=== PATIENT | female | born 1995 | race Caucasian/White ===

== ENCOUNTER 2020-06-02 22:29 | Emergency (ER) | payer OTHER, SELFPAY ==
[2020-06-02 22:30] VITALS: BP 127/74; PULSE 120; RESP 16; TEMP 36.9; O2SAT 98; BMI 38.7
--- NOTE | 2020-06-03 01:11 | ED_ITS ---
HPI - Abdominal Pain General Chief Complaint: Abdominal Pain Stated Complaint: Abd pain Time Seen by Provider: 06/02/20 22:43 Source: patient Mode of arrival: ambulatory History of Present Illness HPI narrative: This is a 24-year-old female with past medical history hypertension who presents with right upper quadrant pain radiating into the infra scapular area that has been intermittent since Thursday, but she states that has worsened with noted fevers with a T-max of 102? as well as nausea and a few episodes of diarrhea and then started today. Otherwise, she denies any surgical history. In addition, she denies any urinary pain/burning/frequency. Related Data Previous Rx's Medication Instructions Recorded ciprofloxacin HCl [Cipro] 500 mg PO Q12H 7 Days #14 tab 06/03/20 metronidazole [Flagyl] 500 mg PO Q8H 7 Days #21 tab 06/03/20 Allergies Allergy/AdvReac Type Severity Reaction Status Date / Time shellfish derived Allergy Severe ANGIOEDEMA Verified 06/02/20 22:39 [SHELLFISH DERIVED] Review of Systems Review of Systems Pertinent positives and negatives as stated in HPI 10 point review of systems is otherwise negative. Physical Exam Vital Signs: Vital Signs: Last Vital Signs Temp 99.8 F 06/03/20 06:00 Pulse 91 06/03/20 06:00 Resp 16 06/03/20 06:00 BP 130/69 06/03/20 06:00 Pulse Ox 98 06/03/20 06:00 Body Mass Index 38.7 VITAL SIGNS: Reviewed. GENERAL: Well developed, well nourished, in no acute distress. NOSE: Nares patent bilateral OROPHARYNX: no oral lesions noted, posterior pharynx clear NECK: Supple, no adenopathy LUNGS: Normal breath sounds. No adventitious sounds or accessory muscle use. SpO2<98> CARDIOVASCULAR: Regular rate and rhythm without noted murmurs, no JVD or lower extremity edema. ABDOMEN: Soft, right upper quadrant tenderness on palpation without rebound, non-distended with bowel sounds. MUSCULOSKELETAL: No tenderness, deformities, or effusions noted on gross inspection. EXTREMITIES: No cyanosis, clubbing or edema. SKIN: Inspection of the skin reveals no rashes NEUROLOGIC: Alert and oriented x 4. Course Course Course Narrative: This is a 24-year-old female with history and clinical presentation suspicious for cholecystitis, pyelonephritis but less likely renal colic or appendicitis. All investigations reviewed and there are no acute findings under than a mild hypokalemia which was repleted with oral replacement. In addition, ultrasound was negative for evidence of cholecystitis and a CT scan was pursued which demonstrated acute terminal ileitis and intramural fatty infiltration within the cecum and ascending colon which is pointed out to favor Crohn's disease although infectious is also a possibility. There are no identified abscesses, stranding or evidence of systemic infection on lab work. I discussed this case with gastroenterology who has provided in outpatient appointment for follow-up and has the following recommendations: Cipro/Flagyl x7 days, call the office on Thursday, 06/05 MDM - Abdominal Pain Lab Data Result diagrams: 06/03/20 02:01 06/03/20 02:01 Labs: Lab Results 06/03/20 06/03/20 06/03/20 Range/Units 01:42 02:01 02:01 WBC 6.6 (4.8-10.8) X10*3/uL RBC 4.51 (4.20-5.50) X10*6/uL Hgb 13.2 (12.0-16.0) g/dl Hct 40.3 (37-47) % MCV 89.4 (80-98) fL MCH 29.3 (27.0-33.0) pg MCHC 32.8 (31.0-35.0) g/dl RDW 13.0 (11.0-16.0) % Plt Count 266 (160-400) X10*3/uL MPV 8.9 L (9.4-12.3) fL Immature Gran % (Auto) 0.5 H (0.0-0.4) % Neut % (Auto) 86.5 H (45-73) % Lymph % (Auto) 6.9 L (20-40) % [place] % (Auto) 5.9 (2-11) % Eos % (Auto) 0.0 (0-4) % Baso % (Auto) 0.2 (0-2) % Lymph # (Auto) 0.5 L (1.2-4.9) X10*3/uL [place] # (Auto) 0.4 (0.1-1.2) X10*3/uL Eos # (Auto) 0.0 (0.0-0.4) X10*3/uL Baso # (Auto) 0.0 (0.0-0.2) X10*3/uL Abs Immat Gran (auto) 0.03 (0.00-0.03) X10*3/uL Absolute Neuts (auto) 5.7 (2.0-8.3) X10*3/uL Absolute Nucleated RBC 0.000 (0.0-0.012) X10*3/uL Nucleated RBC % (auto) 0.0 (0.0-0.2) /100WBC Smear Tech's Comments VERIFIED Sodium 134 L (135-145) mmol/L Potassium 3.2 L (3.3-5.1) mmol/l Chloride 98 (96-108) mmol/L Carbon Dioxide 23 (22-29) mmol/L Anion Gap 16 (12-20) BUN 13 (9-16) mg/dL Creatinine 1.08 (0.5-1.4) mg/dL Estim Creat Clear Calc 86.9 Estimated GFR > 60 Random Glucose 109 (60-115) mg/dL Calcium 8.5 (8.4-10.2) mg/dL Total Bilirubin 0.5 (0.0-1.0) mg/dL AST 90 H (5-31) U/L ALT 81 H (0-31) U/L Alkaline Phosphatase 109 (39-117) U/L Total Protein 7.7 (6.5-8.0) g/dL Albumin 4.0 (3.5-5.0) g/dL Lipase 20 (8-78) U/L Urine Color YELLOW Urine Appearance CLEAR Urine pH 6.0 (5.0-8.0) Ur Specific [place] 1.020 (1.005-1.025) Urine Protein TRACE (NEG-TRACE) MG/DL Urine Glucose (UA) NEG (NEG) MG/DL Urine Ketones 15 (NEG) MG/DL Urine Blood NEG (NEG) Urine Nitrite NEG (NEG) Ur Leukocyte Esterase NEG (NEG) Urine Test NEGATIVE (NEGATIVE) Discharge Plan Discharge Clinical Impression: Hypokalemia Terminal ileitis Qualifiers: Digestive disease complication type: without complication Qualified Code(s): K50.00 - Crohn's disease of small intestine without complications Patient Disposition: Home, Self-Care Additional Instructions: 1. Resume all home medications as prescribed. 2. Increase fluid hydration especially with water. 3. Continue to treat temperatures greater than 100.4 with [id number] Tylenol and ibuprofen as directed on the outside packaging. 4. You have been provided with a follow-up appointment with gastroenterology for re-evaluation and outpatient management of your symptoms in combination with CT findings. You should call the office on Monday 06/05. Please do not hesitate to return to the emergency department should you experience any acute worsening or new symptoms. Prescriptions: New metronidazole [Flagyl] 500 mg tablet 500 mg PO Q8H 7 Days Qty: 21 RF: 0 ciprofloxacin HCl [Cipro] 500 mg tablet 500 mg PO Q12H 7 Days Qty: 14 RF: 0 Referrals: Christiano Park MD [Primary Care Provider] - 2 days (Re-evaluation and outpatient management for terminal ileitis. Patient was provided with a referral for Gastroenterology as this was read for possible Crohn's.) Torres Tomlinson [Physician] - 06/05/20 8:00 am (Please evaluate this patient for findings of terminal ileitis with noted intramural fatty infiltration within the cecum and ascending colon raising concern for possible Crohn's disease.) [facility] Past Medical History Source: nursing notes reviewed Medical History (Updated 06/03/20 @ 05:10 by Lashae Haley MD) Hypertension Social History Social History Alcohol intake: never Smoked in Last 30 Days: No Use of substances other than those prescribed or required for medical reasons: No Advance Directives: No
--- NOTE | 2020-06-03 01:33 | US_ITS ---
EXAMINATION: US ABDOMEN LIMITED CLINICAL INFORMATION: RUQ Pain. COMPARISON: None TECHNIQUE: Real-time imaging of the right upper quadrant abdominal viscera. FINDINGS: PANCREAS: Normal. LIVER: Diffuse increased echogenicity of hepatic parenchyma is most consistent with steatosis. A non mass-like region of decreased echogenicity is most consistent with focal fatty sparing. No suspicious lesions are identified. No intrahepatic biliary duct dilatation seen. The liver is normal in size. GALLBLADDER: Normal. The gallbladder is physiologically distended without evidence of stones, sludge, polyps, wall thickening or pericholecystic fluid. COMMON BILE DUCT: Normal in caliber measuring 0.37 cm in diameter. RIGHT KIDNEY: Normal. No hydronephrosis. No renal calculi or focal parenchymal lesions. The kidney measures 12.1 cm in maximum dimension. FREE FLUID: None. US/US abdomen limited IMPRESSION: Hepatic steatosis with areas of focal fatty sparing. No acute findings in the right upper quadrant.
[2020-06-03 02:04] LABS: Glucose Urine UA NEG (NEG); Leukocyte Esterase Urine NEG (NEG); Nitrite Urine NEG (NEG); Urine Blood NEG (NEG); Urine Ketones 15 MG/DL (NEG); Urine Protein TRACE MG/DL (NEG-TRACE)
[2020-06-03 02:07] LABS: Appearance Urine CLEAR; Color Urine YELLOW
[2020-06-03 02:08] LABS: Basophils Percent Auto 0.2 % (0-2); Hematocrit 40.3 % (37-47); Hemoglobin 13.2 g/dl (12.0-16.0); Imm Gran Abs Auto 0.03 X10*3/uL (0.00-0.03); Imm Gran Pct Auto 0.5 % (0.0-0.4); Lymphocytes Absolute Auto 0.5 X10*3/uL (1.2-4.9); Lymphocytes Percent Auto 6.9 % (20-40); MANUAL DIFF FLAG SCAN; Mean Corpuscular HGB Conc 32.8 g/dl (31.0-35.0); Mean Corpuscular Hemoglobin 29.3 pg (27.0-33.0); Mean Corpuscular Volume 89.4 fL (80-98); Mean Platelet Volume 8.9 fL (9.4-12.3); Monocytes Absolute Auto 0.4 X10*3/uL (0.1-1.2); Monocytes Percent Auto 5.9 % (2-11); Neutrophils Absolute Auto 5.7 X10*3/uL (2.0-8.3); Neutrophils Percent Auto 86.5 % (45-73); Platelet Count 266 X10*3/uL (160-400); Red Blood Count 4.51 X10*6/uL (4.20-5.50); SCAN SMEAR FLAG 1; White Blood Count 6.6 X10*3/uL (4.8-10.8)
[2020-06-03 02:51] LABS: UPreg QC Valid YES; Urine Pregnancy NEGATIVE (NEGATIVE)
[2020-06-03 02:53] LABS: Alanine Aminotransferase 81 U/L (0-31); Alkaline Phosphatase 109 U/L (39-117); Anion Gap 16 (12-20); Aspartate Amino Transferase 90 U/L (5-31); Bilirubin Total 0.5 mg/dL (0.0-1.0); Blood Urea Nitrogen 13 mg/dL (9-16); Calcium 8.5 mg/dL (8.4-10.2); Carbon Dioxide 23 mmol/L (22-29); Chloride 98 mmol/L (96-108); Creatinine Clr Calc Pharmacy 86.9; Estimated Glomerular Filt Rate > 60; Glucose Random 109 mg/dL (60-115); Lipase 20 U/L (8-78); Potassium 3.2 mmol/l (3.3-5.1); Sodium 134 mmol/L (135-145); Total Protein 7.7 g/dL (6.5-8.0)
[2020-06-03 02:59] LABS: SLIDE REVIEW VERIFIED
[2020-06-03 03:20] VITALS: TEMP 39
--- NOTE | 2020-06-03 03:24 | CT_ITS ---
EXAMINATION: CT ABDOMEN AND PELVIS WITH CONTRAST CLINICAL INFORMATION: Quadrant pain. Question pyelonephritis/renal colic. COMPARISON: Ultrasound from the same date at 1:33 AM TECHNIQUE: Multidetector volumetric images were obtained from the superior aspect of the liver through the pubic symphysis following administration 85 mL of Omnipaque 350 intravenous contrast. Sagittal and coronal reformatted images were obtained on the technologist's workstation. Oral contrast: No This CT examination was performed using dose optimization techniques as appropriate, variously including the following: *Automated exposure control *Adjustment of mA and/or kV according to patient size (this includes techniques or standardized protocols for targeted exams where dose is matched to indication/reason for exam; i.e. extremities or head) *Use of iterative reconstruction technique DLP: 689 mGy-cm FINDINGS: LUNG BASES: The visualized lung bases are unremarkable. LIVER, GALLBLADDER, AND BILIARY TREE: Relative hypoattenuation of the hepatic parenchyma is consistent with steatosis. Focal fatty sparing is seen in the posterior aspect of segments 2 and 3. No focal lesions are identified. No biliary ductal dilatation. Liver is normal in size. The gallbladder is unremarkable with no evidence of radiopaque gallstones, gallbladder wall thickening, or obvious pericholecystic inflammatory changes. PANCREAS: Unremarkable. SPLEEN: Unremarkable. ADRENAL GLANDS: Unremarkable. KIDNEYS AND URETERS: The presence of excreted intravenous contrast material within the renal collecting systems slightly limits sensitivity for small calculi. No calculi are suspected, however. There is a multilocular cyst in the left lower pole measuring 3 cm in diameter. No suspicious features. The kidneys are normal in size, shape, and attenuation. No hydronephrosis, hydroureter, or calculi seen. No perinephric stranding. BLADDER: Unremarkable. GASTROINTESTINAL TRACT: The distal 30 to 40 cm of the ileum demonstrates wall thickening with mucosal mural stratification and hyperemia as well as mesenteric edema and fat stranding, consistent with active inflammation. Intramural fat deposition is evident within the cecum and ascending colon without acute inflammatory changes. Appendix is normal. The colon is otherwise normal in appearance. No additional areas of bowel inflammation are identified. No intraperitoneal free air or free fluid. ABDOMINAL WALL: No significant hernia is appreciated. LYMPH NODES: Normal. VASCULAR: Unremarkable. PELVIC VISCERA: IUD is present within the uterus. Uterus otherwise normal in appearance. There is a 2.7 cm left OSSEOUS STRUCTURES: No significant findings of sacroiliitis. No acute osseous abnormalities. No obvious findings of ankylosing spondylitis or enthesitis at the lumbar spine. CT/CT abdomen pelvis w con IMPRESSION: 1. Acute terminal ileitis. No active inflammation is identified in the colon, though there is intramural fatty infiltration within the cecum and ascending colon as can be seen with chronic inflammation (though this is not specific). These findings would favor Crohn's disease, though infectious terminal ileitis or inflammation processes are also possible. 2. No evidence of pyelonephritis.
[2020-06-03] MEDS: Acetaminophen 325 MG TABLET 975 MG PO (03:41)
[2020-06-03] MEDS: iohexoL 350 MG/ML 100 ML INFUS..BTL 85 ML IV (04:41)
[2020-06-03] MEDS: 0.9 % Sodium Chloride 1,000 ML 999 ML IV (05:13)
[2020-06-03] MEDS: Potassium Chloride ER 20 MEQ TAB.ER.PRT 40 MEQ PO (05:13)
[2020-06-03 06:00] VITALS: BP 130/69; PULSE 91; RESP 16; TEMP 37.7; O2SAT 98
[2020-06-03] MEDS: levoFLOXacin 500 MG TABLET PO (06:37)
[2020-06-03] MEDS: metroNIDAZOLE 500 MG TABLET PO (06:37)
== END 2020-06-03 06:52 | disposition home or self-care (01) ==
PROVIDERS: Emergency Provider Student in an Organized Health Care Education/Training Program; PCP Student in an Organized Health Care Education/Training Program
DX: K50.00 Crohn's disease of small intestine without complications (principal); E87.6 Hypokalemia; R10.11 Right upper quadrant pain; R50.9 Fever, unspecified; Z79.899 Other long term (current) drug therapy
CPT/HCPCS: 36415; 74177; 76705; 80053; 81003; 81025; 83690; 85025; 96360; 99284; Q9967

== ENCOUNTER 2020-06-07 14:26 | Outpatient (REF) | payer OTHER, SELFPAY ==
[2020-06-07 15:20] LABS: MANUAL DIFF FLAG NO
[2020-06-07 15:23] LABS: Basophils Percent Auto 0.3 % (0-2); Eosinophils Absolute Auto 0.1 X10*3/uL (0.0-0.4); Eosinophils Percent Auto 0.7 % (0-4); Hematocrit 37.7 % (37-47); Hemoglobin 12.4 g/dl (12.0-16.0); Imm Gran Abs Auto 0.04 X10*3/uL (0.00-0.03); Imm Gran Pct Auto 0.4 % (0.0-0.4); Lymphocytes Absolute Auto 1.8 X10*3/uL (1.2-4.9); Lymphocytes Percent Auto 19.1 % (20-40); Mean Corpuscular HGB Conc 32.9 g/dl (31.0-35.0); Mean Corpuscular Volume 88.3 fL (80-98); Mean Platelet Volume 9.6 fL (9.4-12.3); Monocytes Absolute Auto 1.1 X10*3/uL (0.1-1.2); Monocytes Percent Auto 11.7 % (2-11); Neutrophils Absolute Auto 6.5 X10*3/uL (2.0-8.3); Neutrophils Percent Auto 67.8 % (45-73); Platelet Count 421 X10*3/uL (160-400); Red Blood Count 4.27 X10*6/uL (4.20-5.50); Red Cell Distribution Width 13.2 % (11.0-16.0); White Blood Count 9.6 X10*3/uL (4.8-10.8)
[2020-06-07 15:49] LABS: Alanine Aminotransferase 141 U/L (0-31); Albumin Level 3.9 g/dL (3.5-5.0); Alkaline Phosphatase 181 U/L (39-117); Aspartate Amino Transferase 101 U/L (5-31); Bilirubin Direct 0.2 mg/dL (0.0-0.5); Bilirubin Total 0.2 mg/dL (0.0-1.0); C Reactive Protein 8.36 mg/dL (< or = 0.50); Iron 26 mcg/dL (30-160); Percent Iron Saturation 8 % (15-50); Total Iron Binding Capacity 339 mcg/dL (228-428); Total Protein 7.4 g/dL (6.5-8.0); Unsaturated Iron Binding 313 ug/dL
[2020-06-07 16:05] LABS: Ferritin 169 ng/mL (10-122)
[2020-06-07 16:33] LABS: Erythrocyte Sedimentation Rate 63 MM/HR (0-20)
[2020-06-08 08:33] LABS: Hepatitis B Core Antibody Nonreactive (Nonreactive); Hepatitis B Surface Antigen Negative (Negative); ~Hepatitis B Surface Antibody NONREACTIVE (Nonreactive); ~Hepatitis C Antibody Nonreactive (Nonreactive)
[2020-06-08 14:12] LABS: Ceruloplasmin 45 mg/dL (18-53)
[2020-06-09 20:52] LABS: Anti Nuclear Antibody Screen NEGATIVE (NEGATIVE)
[2020-06-10 03:52] LABS: HBc Num1 0.14 S/CO (0.00-0.79); HBsAGNum1 0.22 S/CO (0.00-0.99); ~HepC Num1 0.11 S/CO (0.00-0.79)
[2020-06-10 04:13] LABS: Hepatitis A Antibody IgM 0.17 Index (0-0.79); ~Hepatitis A Antibody IgM Nonreactive (Nonreactive)
[2020-06-11 15:13] LABS: Mitochondrial Antibodies NEGATIVE (NEGATIVE)
[2020-06-12 13:07] LABS: Smooth Muscle Antibody <20 U (<20)
== END 2020-06-07 14:27 | disposition home or self-care (01) ==
LOC: HO.LAB 14:26
PROVIDERS: PCP Student in an Organized Health Care Education/Training Program; Visit Provider Internal Medicine
DX: R94.5 Abnormal results of liver function studies (principal); R93.3 Abnormal findings on diagnostic imaging of other parts of digestive tract; R19.7 Diarrhea, unspecified; K52.9 Noninfective gastroenteritis and colitis, unspecified
CPT/HCPCS: 36415; 80076; 82390; 82728; 83540; 85025; 85652; 86038; 86039; 86140; 86255; 86256; 86704; 86706; 86709; 86803; 87340

== ENCOUNTER 2020-06-11 12:18 | Day surgery (SDC) | payer OTHER, SELFPAY ==
--- NOTE | 2020-06-08 13:24 | P.CONAN_ITS ---
Documented by User: Sonja Hightower 06/08/20 13:27 HPI - Anesthesia Eval Consult details Narrative: 24yo F for Upper Endoscopy and Colonoscopy ED 06/07/20 with abd pain. Acute terminal ileus via CT. ? Crohns. [facility] Past Medical History Medical History Hypertension Social History Social History Alcohol intake: never Advance Directives: No Advance Directives Information Provided: No Meds Allergies Allergy/AdvReac Type Severity Reaction Status Date / Time shellfish derived Allergy Severe ANGIOEDEMA Verified 06/02/20 22:39 [SHELLFISH DERIVED] Exam Exam Date and Time: June 08, 2020 1324 Pertinent Lab Results Pertinent Lab Results: Laboratory Tests 06/03/20 06/07/20 02:01 14:52 WBC 9.6 Hgb 12.4 Hct 37.7 Plt Count 421 H D Sodium 134 L Potassium 3.2 L Chloride 98 Carbon Dioxide 23 BUN 13 Creatinine 1.08 Narrative Narrative: 06/03/20 CT abdomen pelvis w con IMPRESSION: 1. Acute terminal ileitis. No active inflammation is identified in the colon, though there is intramural fatty infiltration within the cecum and ascending colon as can be seen with chronic inflammation (though this is not specific). These findings would favor Crohn's disease, though infectious terminal ileitis or inflammation processes are also possible. 2. No evidence of pyelonephritis. Assessment and Plan Assessment Anesthesia Assessment: Chart Reviewed Documented by User: Jesus Howard 06/11/20 12:43 [facility] Past Medical History Medical History Hypertension Social History Social History Alcohol intake: never Advance Directives: No Advance Directives Information Provided: No Meds Allergies Allergy/AdvReac Type Severity Reaction Status Date / Time shellfish derived Allergy Severe ANGIOEDEMA Verified 06/02/20 22:39 [SHELLFISH DERIVED] Exam Airway Mallampati Class: II TM Dist: >3cm Neck ROM: Full
[2020-06-11 12:45] VITALS: BP 127/83; PULSE 126; RESP 16; TEMP 36.8; O2SAT 96; BMI 36.8
[2020-06-11 12:50] LABS: UPreg QC Valid YES; Urine Pregnancy NEGATIVE (NEGATIVE)
[2020-06-11] MEDS: Lactated Ringers 1,000 ML 100 ML IVCONT (12:56)
[2020-06-11 14:31] VITALS: BP 92/57; PULSE 88; RESP 12; TEMP 36.6; O2SAT 99
--- NOTE | 2020-06-11 14:37 | PM.OP ---
Brief Operative Note Date of Service: 06/11/20 Pre-op diagnosis: GERD, Diarrhea, Abnormal CT of GI tract Post-op diagnosis: other (Ileitis, Hiatal hernia, GERD) Procedure: EGD with biopsies, Colonoscopy to cecum and TI with biopsies Surgeon: Torres Tomlinson Anesthesia: MAC Estimated blood loss (mL): 3.0 Pathology: other (A. Descending duodenum B. Gastric antrum C. EG Junction at 34cm D. Terminal ileum E. Ascending colon F. Descending colon) Condition: stable Disposition: other
[2020-06-11 14:46] VITALS: BP 108/69; PULSE 90; RESP 17; TEMP 36.6; O2SAT 100
--- NOTE | 2020-06-11 15:09 | HO.POSTANES ---
Post Anesthesia Evaluation Post Anesthesia Evaluation Vital Signs: Vital Signs Temp Pulse Resp BP Pulse Ox 06/11/20 14:46 97.9 F 90 17 108/69 100 06/11/20 14:31 97.9 F 88 12 92/57 L 99 06/11/20 12:45 98.2 F 126 H 16 127/83 96 Anesthesia: Monitored Mental Status: Awake Pain Control: Satisfactory Nausea/Vomiting: None Hydration: Adequate Anesthesia-Related Issues: No Anes. Related Issues
--- NOTE | 2020-06-11 15:16 | OP_ITS ---
SURGEON: Torres Tomlinson MD PREOPERATIVE DIAGNOSIS: Gastroesophageal reflux, abdominal pain, diarrhea, and abnormal x-ray of GI tract. POSTOPERATIVE DIAGNOSIS: Gastroesophageal reflux, abdominal pain, diarrhea, and abnormal x-ray of GI tract, hiatal hernia, rule out Pool's esophagus, rule out celiac disease, ileitis, rule out colitis. PROCEDURE PERFORMED: Esophagogastroduodenoscopy with biopsies, and colonoscopy to cecum and terminal ileum with biopsies. Full consent has been obtained from her for this, including risks of bleeding and perforation. ESTIMATED BLOOD LOSS: COMPLICATIONS: ANESTHESIA: Monitored anesthesia care. ASSISTANTS: SPECIMENS: DESCRIPTION OF PROCEDURE: The patient was placed in the left lateral decubitus position. The Olympus video gastroscope was passed in the posterior oropharynx and upper esophagus under direct vision. The scope was passed slowly to the distal esophagus. The gastroesophageal junction appeared at 34 cm. There was some slight irregularity consistent with reflux, but no evidence of esophagitis nor any definitive Pool's mucosa. There was a small to moderate-sized hiatal hernia. The scope was advanced to pylorus and duodenum was cannulated to the descending portion. The duodenum including the bulb appeared normal without mass or ulceration. Biopsies were obtained from the second and third portions of duodenum. The scope was withdrawn back from the stomach. The gastric antrum and body appeared normal with good peristalsis. The scope was retroflexed visualizing the proximal stomach carefully, which appeared normal, without any sign of mass or ulceration. The scope was straightened. Biopsies were obtained from the gastric antrum. Scope was withdrawn back to the esophagus. Biopsies were obtained at the EG junction at 34 cm. Proximal to this, the esophageal mucosa appeared normal. The scope was withdrawn from the patient. She was turned around for the colonoscopy. The digital rectal exam revealed no abnormalities. The Olympus video pediatric colonoscope was entered into the rectum and advanced easily to the cecum. Once in the cecum, I did identify normal-appearing cecal pouch with appendiceal orifice. The ileocecal valve did have some edema and the small bowel mucosa did appear somewhat inflamed. I was able to cannulate the terminal ileum for several centimeters visualizing a great deal of edema, friability, and some small less than 5 mm ulceration. I was unable to go past the distal most portion of the ileum despite abdominal wall pressure. I could not visualize the ileum proximal to this area to see whether or not it was also abnormal. I did obtain multiple biopsies from the distal most portion of the ileum. The scope was withdrawn into the cecum. The scope was then slowly withdrawn assessing all mucosal surfaces carefully. Preparation was excellent. I did not visualize any sign of polyps, colitis, nor angiodysplasia. I did obtain biopsies in the ascending and descending colon. In the rectum, scope was retroflexed visualizing some internal hemorrhoids, but no other pathology. The rectal mucosa appeared normal. The scope was straightened and withdrawn from the patient. She tolerated procedure well and was returned to recovery area in stable condition. IMPRESSION: 1. Ileitis. 2. Rule out colitis. 3. Small internal hemorrhoids. 4. Hiatal hernia, gastroesophageal reflux. 5. Rule out celiac disease. PLAN: The results of the biopsy will be checked. She was advised to continue her omeprazole for symptomatic relief of reflux. I do suspect, in reviewing her history, that she may very well have had an acute enteritis causing the findings on her CAT scan and today's colonoscopy. I did advise her to finish her course of Cipro and Flagyl. 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 I shall send her home with a prescription to use dicyclomine on a p.r.n. basis for any abdominal cramping. I will hold off on treating anything such as Crohn's disease for the time being and then see her back within 2 weeks in the office. Depending upon the results of her biopsies and clinical course we could always institute specific medication for Crohn disease if it appears that is the case, but again given the acute onset of her symptoms, this may well have been some type of bacterial enteritis. In regard to her elevated LFTs, a workup for that has been negative and it appears to be consistent with fatty liver, but we shall review that as well when I see here in 2 to 3 weeks. This has been reviewed with her today. MD ENRRIQUE Bhat/TONIE / [id number]
== END 2020-06-11 15:13 | disposition home or self-care (01) ==
PROVIDERS: Nurse Practitioner; PCP Student in an Organized Health Care Education/Training Program; Visit Provider Internal Medicine
PROC: (CPT 45380; principal; 2020-06-11 13:40)
DX: K52.9 Noninfective gastroenteritis and colitis, unspecified (principal); R93.3 Abnormal findings on diagnostic imaging of other parts of digestive tract; K64.8 Other hemorrhoids; K21.9 Gastro-esophageal reflux disease without esophagitis; K29.80 Duodenitis without bleeding; K44.9 Diaphragmatic hernia without obstruction or gangrene; I10 Essential (primary) hypertension; Z79.899 Other long term (current) drug therapy; Z87.891 Personal history of nicotine dependence
CPT/HCPCS: 45380; 43239; 81025; 88305; 88342; J2250

== ENCOUNTER 2020-07-04 08:32 | Outpatient (REF) | payer OTHER, SELFPAY ==
--- NOTE | ~2020-07-04 | FL_ITS ---
EXAMINATION: FL SMALL BOWEL SERIES CLINICAL INFORMATION: Ileitis, diarrhea, abnormal CT scan. COMPARISON: CT scan of June 03, 2020 TECHNIQUE: Following a plating department helper image of the abdomen, contrast was administered orally, and interval abdominal radiographs were performed to assess for contrast progression through the small bowel. Following contrast transit through the small bowel and into the colon, the patient was placed on the fluoroscopy table, and multiple spot images were obtained. FINDINGS: [employer] Architect image of the abdomen demonstrates a normal bowel gas pattern. IUD in place. There is slight delay in transit time through the small bowel, with contrast present in the colon by 160 minutes. Small bowel loops are of normal caliber throughout the abdomen and pelvis. The jejunal fold patterns are normal, without evidence of abnormal thickening. Most of the ileum has a normal fold pattern. The terminal ileum appears somewhat featureless and was not noted to distend for approximately 5 minutes under fluoroscopy. FLUOROSCOPY TIME: 0.6 minutes DOSE AREA PRODUCT: 5.882 Gy centimeter squared FL/FL small bowel follow through IMPRESSION: 1. Mild delay in small bowel transit. 2. Somewhat featureless terminal ileum. This has the appearance of terminal ileitis with Crohn's included within the differential diagnosis.
== END 2020-07-04 08:33 | disposition home or self-care (01) ==
LOC: HO.XRAY 08:32
PROVIDERS: Visit Provider Internal Medicine
DX: K52.9 Noninfective gastroenteritis and colitis, unspecified (principal); R93.3 Abnormal findings on diagnostic imaging of other parts of digestive tract
CPT/HCPCS: 74250

== ENCOUNTER 2020-09-20 08:56 | Outpatient (REF) | payer OTHER, SELFPAY ==
[2020-09-20 10:09] LABS: MANUAL DIFF FLAG NO
[2020-09-20 10:19] LABS: Basophils Absolute Auto 0.1 X10*3/uL (0.0-0.2); Eosinophils Absolute Auto 0.3 X10*3/uL (0.0-0.4); Hematocrit 38.4 % (37-47); Hemoglobin 12.7 g/dl (12.0-16.0); Imm Gran Abs Auto 0.04 X10*3/uL (0.00-0.03); Imm Gran Pct Auto 0.5 % (0.0-0.4); Lymphocytes Absolute Auto 1.5 X10*3/uL (1.2-4.9); Mean Corpuscular HGB Conc 33.1 g/dl (31.0-35.0); Mean Corpuscular Hemoglobin 30.5 pg (27.0-33.0); Mean Corpuscular Volume 92.3 fL (80-98); Mean Platelet Volume 9.8 fL (9.4-12.3); Monocytes Absolute Auto 0.8 X10*3/uL (0.1-1.2); Monocytes Percent Auto 9.4 % (2-11); Neutrophils Absolute Auto 5.7 X10*3/uL (2.0-8.3); Neutrophils Percent Auto 68.1 % (45-73); Platelet Count 364 X10*3/uL (160-400); Red Blood Count 4.16 X10*6/uL (4.20-5.50); Red Cell Distribution Width 12.7 % (11.0-16.0); White Blood Count 8.3 X10*3/uL (4.8-10.8)
[2020-09-20 10:53] LABS: Alanine Aminotransferase 66 U/L (0-31); Albumin Level 4.1 g/dL (3.5-5.0); Alkaline Phosphatase 109 U/L (39-117); Aspartate Amino Transferase 41 U/L (5-31); Bilirubin Direct 0.2 mg/dL (0.0-0.5); Bilirubin Total 0.3 mg/dL (0.0-1.0); C Reactive Protein 0.99 mg/dL (< or = 0.50); Total Protein 7.7 g/dL (6.5-8.0)
[2020-09-20 11:39] LABS: Erythrocyte Sedimentation Rate 18 MM/HR (0-20)
== END 2020-09-20 08:57 | disposition home or self-care (01) ==
LOC: HO.LAB 08:56
PROVIDERS: PCP Student in an Organized Health Care Education/Training Program; Visit Provider Internal Medicine
DX: K52.9 Noninfective gastroenteritis and colitis, unspecified (principal); R79.89 Other specified abnormal findings of blood chemistry; R10.13 Epigastric pain; R93.3 Abnormal findings on diagnostic imaging of other parts of digestive tract
CPT/HCPCS: 36415; 80076; 85025; 85652; 86140

== ENCOUNTER 2020-11-28 15:32 | Outpatient (REF) | payer BC, SELFPAY ==
[2020-11-28 16:23] LABS: Estimated Average Glucose 108 mg/dL; Hemoglobin A1c % 5.4 %
[2020-11-28 16:25] LABS: Alanine Aminotransferase 44 U/L (0-31); Albumin Level 4.2 g/dL (3.5-5.0); Alkaline Phosphatase 109 U/L (39-117); Anion Gap 15 (12-20); Aspartate Amino Transferase 33 U/L (5-31); Bilirubin Total 0.4 mg/dL (0.0-1.0); Blood Urea Nitrogen 13 mg/dL (9-16); Calcium 9.3 mg/dL (8.4-10.2); Carbon Dioxide 24 mmol/L (22-29); Chloride 104 mmol/L (96-108); Cholesterol 207 mg/dL; Estimated Glomerular Filt Rate > 60; Glucose Random 118 mg/dL (60-115); HDL Cholesterol 56 mg/dL; LDL Cholesterol Calculated 122 mg/dl; Potassium 4.4 mmol/L (3.3-5.1); Sodium 139 mmol/L (135-145); Total Protein 7.9 g/dL (6.5-8.0); Triglycerides 149 mg/dL
[2020-11-28 16:45] LABS: Free T4 (Free Thyroxine) 0.94 ng/dL (0.71-1.85); Thyroid Stimulating Hormone 2.76 uIU/mL (0.32-4.0)
== END 2020-11-28 15:33 | disposition home or self-care (01) ==
LOC: HO.LAB 15:32
PROVIDERS: Absent Provider Internal Medicine; PCP Student in an Organized Health Care Education/Training Program; Visit Provider Student in an Organized Health Care Education/Training Program
DX: I10 Essential (primary) hypertension (principal)
CPT/HCPCS: 36415; 80053; 80061; 83036; 84439; 84443

== ENCOUNTER 2022-01-24 09:38 | Outpatient (REF) | payer BC, SELFPAY ==
[2022-01-24 10:04] LABS: MANUAL DIFF FLAG NO
[2022-01-24 10:50] LABS: Basophils Absolute Auto 0.1 X10*3/uL (0.0-0.2); Basophils Percent Auto 0.5 % (0-2); Eosinophils Absolute Auto 0.1 X10*3/uL (0.0-0.4); Eosinophils Percent Auto 0.8 % (0-4); Hematocrit 41.2 % (37.0-47.0); Hemoglobin 14.2 g/dl (12.0-16.0); Imm Gran Abs Auto 0.03 X10*3/uL (0.00-0.03); Imm Gran Pct Auto 0.3 % (0.0-0.4); Lymphocytes Absolute Auto 1.9 X10*3/uL (1.2-4.9); Lymphocytes Percent Auto 20.1 % (20-40); Mean Corpuscular HGB Conc 34.5 g/dl (31.0-35.0); Mean Corpuscular Hemoglobin 30.9 pg (27.0-33.0); Mean Corpuscular Volume 89.8 fL (80.0-98.0); Mean Platelet Volume 9.6 fL (9.4-12.3); Monocytes Absolute Auto 0.9 X10*3/uL (0.1-1.2); Neutrophils Absolute Auto 6.6 x10*3/uL (2.0-8.3); Neutrophils Percent Auto 69.3 % (45-73); Platelet Count 361 X10*3/uL (160-400); Red Blood Count 4.59 X10*6/uL (4.20-5.50); White Blood Count 9.6 X10*3/uL (4.8-10.8)
[2022-01-24 11:50] LABS: Alanine Aminotransferase 115 U/L (0-31); Albumin Level 4.2 g/dL (3.5-5.0); Alkaline Phosphatase 106 U/L (39-117); Anion Gap 19 (12-20); Aspartate Amino Transferase 85 U/L (5-31); Bilirubin Total 0.3 mg/dL (0.0-1.0); Blood Urea Nitrogen 13 mg/dL (9-16); Calcium 9.3 mg/dL (8.4-10.2); Carbon Dioxide 29 mmol/L (22-29); Chloride 94 mmol/L (96-108); Cholesterol 242 mg/dL; Estimated Glomerular Filt Rate > 60; Glucose Fasting 104 mg/dL (60-99); HDL Cholesterol 46 mg/dL; LDL Cholesterol Calculated 164 mg/dl; Sodium 139 mmol/L (135-145); Total Protein 7.9 g/dL (6.5-8.0); Triglycerides 164 mg/dL
[2022-01-24 11:51] LABS: TSH reflex Free T4 3.21 uIU/mL (0.32-4.0); Vitamin D 25-OH Total 24.9 ng/mL (>30)
[2022-01-24 11:56] LABS: Folate 12.4 ng/mL (> or = 4.0); Vitamin B12 250 pg/mL (200-900)
== END 2022-01-24 09:39 | disposition home or self-care (01) ==
LOC: HO.LAB 09:38
PROVIDERS: PCP Nurse Practitioner Family; Visit Provider Nurse Practitioner Family
DX: Z13.220 Encounter for screening for lipoid disorders (principal); Z13.29 Encounter for screening for other suspected endocrine disorder; I10 Essential (primary) hypertension
CPT/HCPCS: 36415; 80053; 80061; 82306; 82607; 82746; 84443; 85025

== ENCOUNTER 2023-03-24 14:37 | Outpatient (AMB) | payer BC, SELFPAY ==
--- NOTE | 2023-03-24 14:54 | MHC.PC.OV ---
Vital Signs 03/24/23 14:56 Height 5 ft 3 in Weight 221 lb 6 oz BMI 39.2 BP 138/90 H Blood Pressure Location Lt brachial Position Sitting Pulse 114 H Pulse Source Pulse Oximeter Pulse Oximetry (%) 97 Oxygen Delivery Method Room Air Intake Visit Reasons: Annual PE Intake Note: Patient is here today for a physical. Nerves pain in both hands and feet, requesting for lab order, high bp, history of chrons and flare ups. 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 Accompanied by: Self / Same As Patient Allergies shellfish derived [SHELLFISH DERIVED] Allergy (Severe, Verified 03/24/23 15:14) ANGIOEDEMA Medication List - Last Reconciled 03/24/23 by EBONY Boyle blood pressure monitor As directed dicyclomine 10 mg PO BID PRN hydrochlorothiazide 25 mg PO DAILY hydroxyzine HCl 25 mg PO BID PRN omeprazole 20 mg PO DAILY trazodone 50 mg PO DAILY 90 days Tobacco use date assessed: 03/24/23 Dental Screening Dental Screen Date: 03/24/23 Did you have a dental visit in the last 12 months?: No Did you have a dental problem in the last 6 months where you did not have access to dental care?: No Was dental information given to patient?: No HPI Annual PE HPI Details Patient is a 27-year-old female who presents today for physical exam. Medical history significant for obesity, fatty liver, insomnia, abdominal cramping - followed by Dr. Tomlinson, depression, anxiety, GERD, and hypertension. Patient is compliant with medications. Eye exam and dentist are overdue, patient is to call for appointments. Tetanus vaccine in 2019. Patient has an upcoming appointment with [facility] gynecology for woman's exam 04/07/2023. Reports systolic blood pressures at home ranging between 170 and 130. Reports bilateral hand cramping-works on computer and feet tingling for the past 1 month. Also reports right great toe painful bump for the past some time. No shortness of breath or chest pain. [facility] Medical History Screening for hypothyroidism Screening for hyperlipidemia Screening for diabetes mellitus Hypertension Surgical History History of colonoscopy History of esophagogastroduodenoscopy (EGD) Family History Father GERD (gastroesophageal reflux disease) Mother History of cancer Maternal Grandfather Prostate cancer Maternal Aunt Breast cancer Other Mental health disorder Substance use disorder Social History Housing: House Alcohol intake: current Alcohol intake frequency: holidays/special occasions only Patient Tobacco Use Status: Current someday Tobacco user Tobacco use type: Cigarette Cigarettes Per Day: 3 (per week) e-Cigarette/Vaping Use: Former Use Second Hand Smoke Exposure: Yes service: No Current occupational status: employed 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 1. Little interest or pleasure in doing things: not at all 2. Feeling down, depressed, or hopeless: not at all 3. Trouble falling or staying asleep, or sleeping too much: not at all 4. Feeling tired or having little energy: not at all 5. Poor appetite or overeating: not at all 6. Feeling bad about yourself - or that you are a failure or have let yourself or your family down: not at all 7. Trouble concentrating on things, such as reading the newspaper or watching television: not at all 8. Moving or speaking so slowly that other people could have noticed. Or the opposite - being so fidgety or restless that you have been moving around a lot more than usual: not at all 9. Thoughts that you would be better off or of hurting yourself in some way: not at all Total score: 0 Depression Screening Interpretation: Negative Depression Screening Done: Yes 82163 - PHQ-9 Billing: Yes Source: Developed by Drs. Torres Gabriel, Kiana Mena, Willi Ponce and colleagues, with an educational gordon from [employer]. Thrive Questionnaire Date Thrive assessed: 03/24/23 I am a: Patient What is your living situation today?: I have a steady place to live Within the past 12 months, did the food you bought not last and you didn't have the money to get more?: Never true Within the past 12 months, did you worry whether your food would run out before you got money to buy more?: Never true Do you have trouble paying for medicines?: No Do you have trouble getting transportation to medical appointments?: No Do you have trouble paying your heating and electricity bill?: No Do you have trouble taking care of your child, family member or friend?: No Do you have trouble with day-to-day activities such as bathing, preparing meals, shopping, managing finances, etc.?: No Are you currently unemployed and looking for a job?: No Are you interested in more education?: No Currently or been in a relationship where the following occur: no concerns reported AUDIT C Alcohol Use Questionnaire (AUDIT-C) 1. How often do you have a drink containing alcohol?: Monthly or less Total Score: 1 Score Reviewed/Action Taken: No BLAYNE-7 AMB Questionnaire BLAYNE-7 Date BLAYNE - 7 assessed: 03/24/23 Feeling nervous, anxious, or on edge: 3 = Nearly every day Not being able to stop or control worryin = Nearly every day Worrying too much about different things: 3 = Nearly every day Trouble relaxin = Nearly every day Being so restless that it is hard to sit still: 3 = Nearly every day Becoming easily annoyed or irritable: 1 = Several days Feeling afraid as if something awful might happen: 3 = Nearly every day Total BLAYNE-7 score (0-4 normal; 5-9 mild; 10-14 moderate; 15-21 severe): 19 Source: Developed by Drs. Torres Gabriel, Kiana Mena, Willi Ponce and colleagues, with an educational gordon from [employer]. BLAYNE-7 Assessment Billing BLAYNE-7 Assessment Tool: BLAYNE-7 Assessment 31233 Review of Systems Const Denies body aches, Denies chills, Denies fever(s) and Denies headache(s) Eyes Denies change in vision ENT Denies dizziness, Denies otalgia, Denies headache(s), Denies nasal discharge, Denies sinus pain and Denies sore throat Card Denies chest pain, Denies edema, Denies lightheadedness and Denies dyspnea Resp Denies chest congestion, Denies cough and Denies dyspnea GI Denies abdominal pain, Denies constipation, Reports GI cramping (Intermittent), Reports diarrhea (Intermittent), Denies nausea and Denies vomiting Denies dysuria Musc Reports as per HPI and Denies myalgias Skin/Breast Reports as per HPI and Denies rash Neuro Denies dizziness and Denies headache(s) Physical exam (Primary Care) Vital Signs: Last Vital Signs Pulse 114 H 03/24/23 14:56 BP 138/90 H 03/24/23 14:56 Pulse Ox 97 03/24/23 14:56 Oxygen Delivery Method Room Air 03/24/23 14:56 BMI result Body Mass Index 39.2 Tobacco/Smoking Status: Tobacco use Status Tobacco use date assessed 03/24/23 03/24/23 15:09 Patient Tobacco Use Status Current someday Tobacco 03/24/23 15:09 Tobacco use type Cigarette 03/24/23 15:09 e-Cigarette/Vaping Use Former Use 03/24/23 15:09 PHQ-9: PHQ-9 Score PHQ-9: Total score 0 03/24/23 15:09 Depression Screening Interpretation: Negative Thrive Assessment: Date of Thrive Assessment Date Thrive assessed 03/24/23 03/24/23 15:09 Currently or been in a relationship where the following occur: no concerns reported Const General: cooperative and no acute distress Orientation/consciousness: patient oriented x3 HENMT Head: Yes normocephalic and Yes atraumatic Ears: TM's normal bilaterally Face and sinus: Yes sinuses nontender Mouth: oropharynx normal and moist mucous membranes Throat: Yes posterior oropharynx normal Eyes General: appearance normal, both eyes and all related structures Pupils: Equal, round and reactive pupils present EOM: EOMs intact bilaterally Neck Neck: Yes normal visual inspection, Yes full ROM and Yes no lymphadenopathy Thyroid: Thyroid normal Resp Effort & Inspection: normal respiratory effort and able to speak in complete sentences Auscultation: clear to auscultation bilaterally, no crackles, no rales, no rhonchi and no wheezes Cardio Rate: regular rate Rhythm: regular rhythm Heart sounds: S1 normal heart sound present, S2 normal heart sound present and no murmurs GI Palpation (GI): Soft to palpation, not firm, nontender, no guarding, not rigid and no hepatosplenomegaly Auscultation: normal bowel sounds General: No CVA tenderness Back/Spine/Pelvis Back: No CVA tenderness Skin Other: Right great toe medial aspect red, tender, no discharge Left armpit slightly raised about 5mm skin colored area, nontender, no signs of infection noted Neuro General: patient oriented x3 Cranial nerves: Yes Equal, round and reactive pupils present Gait exam (Neuro): Normal gait present Extrem General: Yes full ROM and No edema Assessment and Plan Assessment & Plan (1) Fatty liver: Code(s): K76.0 - Fatty (change of) liver, not elsewhere classified Plan: Healthy food choices and exercise as tolerated (2) Insomnia: Code(s): G47.00 - Insomnia, unspecified Plan: Stable with trazodone p.r.n. (3) Depression: Code(s): F32.A - Depression, unspecified Plan: Referral placed for counseling Patient reports more anxiety than depression (4) Anxiety: Code(s): F41.9 - Anxiety disorder, unspecified Plan: Hydroxyzine 25 mg b.i.d. as needed-educated about drowsiness Counseling referral (5) GERD (gastroesophageal reflux disease): Code(s): K21.9 - Gastro-esophageal reflux disease without esophagitis Plan: Omeprazole 20 mg daily Avoid GERD trigger foods Do not lay down 2-3 hours after evening meal Call Dr. Tomlinson for an appointment (6) Hypertension: Code(s): I10 - Essential (primary) hypertension Plan: Continue hydrochlorothiazide Start metoprolol 12.5 mg daily Goal BP equal or less than 140/90 Low-sodium diet and weight loss Follow-up in 2 weeks for BP check with nurse (7) Obesity (BMI 35.0-39.9 without comorbidity): Code(s): E66.9 - Obesity, unspecified Plan: Healthy food choices and exercise as tolerated (8) Hyperlipidemia: Code(s): E78.5 - Hyperlipidemia, unspecified Plan: LDL 164 - 01/2022, goal less than 130 Reinforced low-cholesterol diet Will check lipid panel (9) Elevated fasting glucose: Code(s): R73.01 - Impaired fasting glucose Plan: Will check A1c (10) Adult general medical exam: Comment: Anatoliy RODRIGUEZ's Pfizer x2. Due for Pap smear. Code(s): Z00.00 - Encounter for general adult medical examination without abnormal findings Plan: Repeat in 1 year (11) Toe pain, right: Code(s): M79.674 - Pain in right toe(s) Plan: Right great toe medial aspect red, tender, no discharge ? Ingrown toenail Encouraged Epson salt water soaks couple times per day Start doxycycline b.i.d. for 7 days Notify office if no improvement (12) Tingling of both feet: Code(s): R20.2 - Paresthesia of skin Plan: Will check blood work Plan Follow-up in 3 months or sooner as needed Orders: Orders Vitamin B12 and Folate Today Z00.00 - Encounter for general adult medical examination without abnormal findings TSH reflex Free T4 Today Z00.00 - Encounter for general adult medical examination without abnormal findings Complete Blood Count Auto Diff Today Z00.00 - Encounter for general adult medical examination without abnormal findings Vitamin D 25-OH Total Today Z00.00 - Encounter for general adult medical examination without abnormal findings Lipid Panel Today E78.5 - Hyperlipidemia, unspecified Comprehensive [place]. Panel Fast Today Z00.00 - Encounter for general adult medical examination without abnormal findings Hemoglobin A1c Today R73.01 - Impaired fasting glucose Referrals Counseling Referral F32.A - Depression, unspecified, F41.9 - Anxiety disorder, unspecified Medications: New doxycycline hyclate 100 mg PO BID 14 tabs 0RF M79.674 - Pain in right toe(s) metoprolol succinate ER 12.5 mg (1/2 x 25 mg) PO DAILY 30 tabs 1RF I10 - Essential (primary) hypertension Refilled hydroxyzine HCl 25 mg PO BID PRN 14 tabs 0RF anxiety F41.9 - Anxiety disorder, unspecified Coding Level of Care Code Est Pt Prev Care 18-39y(58518) Diagnoses Fatty liver K76.0 Insomnia G47.00 Depression F32.A Anxiety F41.9 GERD (gastroesophageal reflux disease) K21.9 Hypertension I10 Obesity (BMI 35.0-39.9 without comorbidity) E66.9 Hyperlipidemia E78.5 Elevated fasting glucose R73.01 Adult general medical exam Z00.00 Toe pain, right M79.674 Tingling of both feet R20.2 Additional Codes BLAYNE-7 Assessment Billing - BLAYNE-7 Assessment Tool: BLAYNE-7 Assessment [id number] ([id number])
[2023-03-24 14:56] VITALS: BP 138/90; PULSE 114; O2SAT 97; BMI 39.2
== END 2023-03-24 15:40 | disposition home or self-care (01) ==
PROVIDERS: PCP Nurse Practitioner Family; Visit Provider Nurse Practitioner Family
DX: Z00.00 Encounter for general adult medical examination without abnormal findings (principal); K76.0 Fatty (change of) liver, not elsewhere classified; K21.9 Gastro-esophageal reflux disease without esophagitis; I10 Essential (primary) hypertension; G47.00 Insomnia, unspecified; E78.5 Hyperlipidemia, unspecified; R73.01 Impaired fasting glucose; M79.674 Pain in right toe(s); R20.2 Paresthesia of skin
CPT/HCPCS: 99395

== ENCOUNTER 2023-03-27 10:47 | Outpatient (REF) | payer BC, SELFPAY ==
[2023-03-27 11:07] LABS: MANUAL DIFF FLAG NO
[2023-03-27 12:06] LABS: Basophils Absolute Auto 0.1 X10*3/uL (0.0-0.2); Basophils Percent Auto 1.1 % (0-2); Eosinophils Absolute Auto 0.1 X10*3/uL (0.0-0.4); Eosinophils Percent Auto 1.5 % (0-4); Hematocrit 42.1 % (37.0-47.0); Hemoglobin 14.5 g/dl (12.0-16.0); Imm Gran Abs Auto 0.02 X10*3/uL (0.00-0.03); Imm Gran Pct Auto 0.2 % (0.0-0.4); Lymphocytes Absolute Auto 1.9 X10*3/uL (1.2-4.9); Lymphocytes Percent Auto 21.8 % (20-40); Mean Corpuscular HGB Conc 34.4 g/dl (31.0-35.0); Mean Corpuscular Hemoglobin 32.7 pg (27.0-33.0); Mean Corpuscular Volume 94.8 fL (80.0-98.0); Mean Platelet Volume 9.8 fL (9.4-12.3); Monocytes Absolute Auto 0.7 X10*3/uL (0.1-1.2); Monocytes Percent Auto 8.4 % (2-11); Neutrophils Absolute Auto 5.7 x10*3/uL (2.0-8.3); Platelet Count 430 X10*3/uL (160-400); Red Blood Count 4.44 X10*6/uL (4.20-5.50); Red Cell Distribution Width 11.8 % (11.0-16.0); White Blood Count 8.5 X10*3/uL (4.8-10.8)
[2023-03-27 12:37] LABS: Estimated Average Glucose 108 mg/dL; Hemoglobin A1c % 5.4 % (<6.0)
[2023-03-27 13:21] LABS: Alanine Aminotransferase 210 U/L (0-31); Albumin Level 4.5 g/dL (3.5-5.0); Alkaline Phosphatase 121 U/L (39-117); Anion Gap 12 (12-20); Aspartate Amino Transferase 222 U/L (5-31); Bilirubin Total 0.3 mg/dL (0.0-1.0); Blood Urea Nitrogen 10 mg/dL (9-16); Calcium 9.4 mg/dL (8.4-10.2); Carbon Dioxide 31 mmol/L (22-29); Chloride 100 mmol/L (96-108); Cholesterol 243 mg/dL (<200); Estimated Glomerular Filt Rate > 60; Glucose Fasting 102 mg/dL (60-99); HDL Cholesterol 48 mg/dL (>40); LDL Cholesterol Calculated 166 mg/dL (<100); Potassium 3.4 mmol/L (3.3-5.1); Sodium 140 mmol/L (135-145); Total Protein 8.5 g/dL (6.5-8.0); Triglycerides 146 mg/dL (<150)
[2023-03-27 13:40] LABS: TSH reflex Free T4 3.92 uIU/mL (0.32-4.0); Vitamin D 25-OH Total 51.4 ng/mL (>30)
[2023-03-27 13:53] LABS: Folate 6.6 ng/mL (> or = 4.0); Vitamin B12 460 pg/mL (200-900)
== END 2023-03-27 10:48 | disposition home or self-care (01) ==
LOC: HO.LAB 10:47
PROVIDERS: PCP Nurse Practitioner Family; Visit Provider Nurse Practitioner Family
DX: Z00.00 Encounter for general adult medical examination without abnormal findings (principal); R79.89 Other specified abnormal findings of blood chemistry; R73.01 Impaired fasting glucose; E78.5 Hyperlipidemia, unspecified; E55.9 Vitamin D deficiency, unspecified
CPT/HCPCS: 36415; 80053; 80061; 82306; 82607; 82746; 83036; 84443; 85025

== ENCOUNTER 2023-04-07 16:40 | Outpatient (REF) | payer BC, SELFPAY ==
[2023-04-07 16:58] LABS: MANUAL DIFF FLAG NO
[2023-04-07 17:34] LABS: Basophils Absolute Auto 0.1 X10*3/uL (0.0-0.2); Basophils Percent Auto 0.9 % (0-2); Eosinophils Absolute Auto 0.1 X10*3/uL (0.0-0.4); Eosinophils Percent Auto 0.4 % (0-4); Hematocrit 42.9 % (37.0-47.0); Hemoglobin 14.7 g/dl (12.0-16.0); Imm Gran Abs Auto 0.03 X10*3/uL (0.00-0.03); Imm Gran Pct Auto 0.3 % (0.0-0.4); Lymphocytes Percent Auto 18.1 % (20-40); Mean Corpuscular HGB Conc 34.3 g/dl (31.0-35.0); Mean Corpuscular Hemoglobin 32.7 pg (27.0-33.0); Mean Corpuscular Volume 95.3 fL (80.0-98.0); Monocytes Absolute Auto 0.9 X10*3/uL (0.1-1.2); Monocytes Percent Auto 8.3 % (2-11); Neutrophils Absolute Auto 8.1 x10*3/uL (2.0-8.3); Platelet Count 422 X10*3/uL (160-400); Red Cell Distribution Width 11.6 % (11.0-16.0); White Blood Count 11.2 X10*3/uL (4.8-10.8)
[2023-04-07 18:00] LABS: Alanine Aminotransferase 215 U/L (0-31); Albumin Level 4.4 g/dL (3.5-5.0); Alkaline Phosphatase 102 U/L (39-117); Anion Gap 14 (12-20); Aspartate Amino Transferase 256 U/L (5-31); Bilirubin Total 0.6 mg/dL (0.0-1.0); Blood Urea Nitrogen 10 mg/dL (9-16); Calcium 10.1 mg/dL (8.4-10.2); Carbon Dioxide 31 mmol/L (22-29); Chloride 98 mmol/L (96-108); Cholesterol 242 mg/dL (<200); Estimated Glomerular Filt Rate > 60; Glucose Random 97 mg/dL (60-115); HDL Cholesterol 55 mg/dL (>40); LDL Cholesterol Calculated 162 mg/dL (<100); Potassium 3.3 mmol/L (3.3-5.1); Sodium 140 mmol/L (135-145); Total Protein 8.5 g/dL (6.5-8.0); Triglycerides 128 mg/dL (<150)
[2023-04-07 18:01] LABS: Alanine Aminotransferase 214 U/L (0-31); Albumin Level 4.4 g/dL (3.5-5.0); Alkaline Phosphatase 101 U/L (39-117); Aspartate Amino Transferase 255 U/L (5-31); Bilirubin Direct 0.3 mg/dL (0.0-0.5); Bilirubin Total 0.6 mg/dL (0.0-1.0); Total Protein 8.4 g/dL (6.5-8.0)
[2023-04-07 18:19] LABS: Vitamin D 25-OH Total 43.3 ng/mL (>30)
[2023-04-08 04:52] LABS: HBS Num1 0.25 mIU/mL (0-7.99); HBc Num1 0.17 S/CO (0.00-0.79); Hepatitis A Antibody IgM 0.31 Index (0-0.79); Hepatitis B Core Antibody Nonreactive (Nonreactive); Hepatitis B Surface Antigen Negative (Negative); ~HepC Num1 0.15 S/CO (0.00-0.79); ~Hepatitis A Antibody IgM Nonreactive (Nonreactive); ~Hepatitis B Surface Antibody NONREACTIVE (Nonreactive); ~Hepatitis C Antibody Nonreactive (Nonreactive)
[2023-04-14 16:13] LABS: FIB-ALT 186 U/L (6-29); FIB-Alpha-2-Macroglobulin 172 mg/dL (106-279); FIB-Apolipoprotein A1 174 mg/dL (101-198); FIB-GGT 279 U/L (3-40); FIB-Haptoglobin 290 mg/dL (43-212); FIB-Total Bilirubin 0.5 mg/dL (0.2-1.2); Liver Fibrosis Score 0.09; Liver Fibrosis Stage F0; Nec Inflam Act Grade A3; Nec Inflam Act Score 0.73
== END 2023-04-07 16:41 | disposition home or self-care (01) ==
LOC: HO.LAB 16:40
PROVIDERS: Absent Provider Internal Medicine; PCP Nurse Practitioner Family; Visit Provider Nurse Practitioner Family
DX: Z00.00 Encounter for general adult medical examination without abnormal findings (principal); R79.89 Other specified abnormal findings of blood chemistry; E78.5 Hyperlipidemia, unspecified; K76.0 Fatty (change of) liver, not elsewhere classified
CPT/HCPCS: 36415; 80053; 80061; 80076; 81596; 82248; 82306; 85025; 85610; 86704; 86706; 86709; 86803; 87340

== ENCOUNTER 2023-04-22 11:25 | Outpatient (REF) | payer BC, SELFPAY ==
--- NOTE | ~2023-04-22 | US_ITS ---
EXAMINATION: US ABDOMEN COMPLETE CLINICAL INFORMATION: Evaluate abnormal lab tests, elevated LFTs. COMPARISON: CT abdomen from 06/03/2020 TECHNIQUE: Real-time imaging of the abdominal viscera. FINDINGS: PANCREAS: Partially visualized pancreas is unremarkable. The tail is obscured by bowel gas. ABDOMINAL AORTA: The proximal, mid, and distal segments are normal in caliber. INFERIOR VENA CAVA: Visualized portions are normal. LIVER: Liver is enlarged with the right lobe of the liver measured 22 cm. The liver contour is normal. Liver demonstrates increased echogenicity due to hepatic steatosis. No focal hepatic lesion. There is no intrahepatic biliary duct dilatation seen. GALLBLADDER: Normal. The gallbladder is physiologically distended without evidence of stones, sludge, polyps, wall thickening or pericholecystic fluid. COMMON BILE DUCT: Normal in caliber measuring 0.4 cm in diameter. RIGHT KIDNEY: Normal. No hydronephrosis. No renal calculi or focal parenchymal lesions. The kidney measures 12.7 cm in maximum dimension. LEFT KIDNEY: No hydronephrosis. No renal calculi or focal parenchymal lesions. The kidney measures 13.4 cm in maximum dimension. There is septated lower pole 2.5 x 2.9 x 2.3 cm cyst, seen on previous CT scan. SPLEEN: Normal. The spleen measures 10.8 cm in maximum dimension. FREE FLUID: None. US/US abdomen complete IMPRESSION: Hepatomegaly and hepatic steatosis. Stable septated cyst in the lower pole of left kidney.
== END 2023-04-22 11:26 | disposition home or self-care (01) ==
LOC: HO.HMGCX 11:25
PROVIDERS: Absent Provider Internal Medicine; PCP Nurse Practitioner Family; Visit Provider Nurse Practitioner Family
DX: R79.89 Other specified abnormal findings of blood chemistry (principal); K76.0 Fatty (change of) liver, not elsewhere classified
CPT/HCPCS: 76700

== ENCOUNTER 2023-08-20 13:15 | Outpatient (REF) | payer BC, SELFPAY ==
[2023-08-20 14:58] LABS: MANUAL DIFF FLAG NO
[2023-08-20 15:39] LABS: Basophils Absolute Auto 0.1 X10*3/uL (0.0-0.2); Basophils Percent Auto 0.7 % (0-2); Eosinophils Absolute Auto 0.1 X10*3/uL (0.0-0.4); Eosinophils Percent Auto 0.7 % (0-4); Hematocrit 39.6 % (37.0-47.0); Hemoglobin 13.7 g/dl (12.0-16.0); Imm Gran Abs Auto 0.05 X10*3/uL (0.00-0.03); Imm Gran Pct Auto 0.5 % (0.0-0.4); Lymphocytes Absolute Auto 2.1 X10*3/uL (1.2-4.9); Lymphocytes Percent Auto 22.2 % (20-40); Mean Corpuscular HGB Conc 34.6 g/dl (31.0-35.0); Mean Corpuscular Hemoglobin 32.3 pg (27.0-33.0); Mean Corpuscular Volume 93.4 fL (80.0-98.0); Mean Platelet Volume 9.9 fL (9.4-12.3); Monocytes Absolute Auto 0.8 X10*3/uL (0.1-1.2); Monocytes Percent Auto 8.4 % (2-11); Neutrophils Absolute Auto 6.3 x10*3/uL (2.0-8.3); Neutrophils Percent Auto 67.5 % (45-73); Platelet Count 362 X10*3/uL (160-400); Red Blood Count 4.24 X10*6/uL (4.20-5.50); Red Cell Distribution Width 11.9 % (11.0-16.0); White Blood Count 9.4 X10*3/uL (4.8-10.8)
[2023-08-20 15:44] LABS: Appearance Urine Clear; Color Urine Dark Yellow; Glucose Urine UA Negative (Negative); Leukocyte Esterase Urine Negative (Negative); Nitrite Urine Negative (Negative); PH 6.5 (5.0-9.0); Specific Gravity - Urine 1.025 (1.005-1.025); UMIC TRIGGER UA YES; Urine Blood Negative (Negative); Urine Ketones Trace mg/dL (Negative); Urine Protein 30 (1+) mg/dL (Neg-Trace)
[2023-08-20 15:47] LABS: Estimated Average Glucose 134 mg/dL; Hemoglobin A1c % 6.3 % (<6.0)
[2023-08-20 15:52] LABS: Protein/Creatinine Ratio, Ur 0.13 (<0.2); Total Protein Urine Random 37 mg/dL (<12)
[2023-08-20 16:04] LABS: Bacteria Urine None Seen (None Seen); Hyaline Casts Urine 0-2 /LPF (0-2); RBC Urine 0-2 /HPF (0-2); WBC Urine 0-5 /HPF (0-5)
[2023-08-20 16:24] LABS: Erythrocyte Sedimentation Rate 65 MM/HR (0-20)
[2023-08-20 16:25] LABS: Rheumatoid Factor < 13.0 IU/mL (<15.0)
[2023-08-20 16:30] LABS: Alanine Aminotransferase 156 U/L (0-31); Albumin Level 4.3 g/dL (3.5-5.0); Alkaline Phosphatase 124 U/L (39-117); Anion Gap 18 (12-20); Aspartate Amino Transferase 276 U/L (5-31); Bilirubin Total 0.6 mg/dL (0.0-1.0); Blood Urea Nitrogen 9 mg/dL (9-16); C Reactive Protein 4.88 mg/dL (< or = 0.50); Calcium 9.8 mg/dL (8.4-10.2); Carbon Dioxide 28 mmol/L (22-29); Chloride 97 mmol/L (96-108); Estimated Glomerular Filt Rate > 60; Glucose Random 110 mg/dL (60-115); Potassium 3.1 mmol/L (3.3-5.1); Sodium 140 mmol/L (135-145); Total Protein 8.5 g/dL (6.5-8.0)
[2023-08-21 08:06] LABS: HBc Num1 0.15 S/CO (0.00-0.79); HBsAGNum1 0.35 S/CO (0.00-0.99); Hepatitis A Antibody IgM 0.23 Index (0-0.79); Hepatitis B Core Antibody Nonreactive (Nonreactive); Hepatitis B Surface Antigen Negative (Negative); ~HepC Num1 0.14 S/CO (0.00-0.79); ~Hepatitis A Antibody IgM Nonreactive (Nonreactive); ~Hepatitis B Surface Antibody NONREACTIVE (Nonreactive); ~Hepatitis C Antibody Nonreactive (Nonreactive)
[2023-08-21 13:23] LABS: Anti DNA DS Antibody 1 IU/mL; Antibody to SS-A Antigen <1.0 NEG AI (<1.0 NEG); Antibody to SS-B Antigen <1.0 NEG AI (<1.0 NEG); Myeloperoxidase Antibody <1.0 AI; Proteinase 3 PR3 Antibodies <1.0 AI; SM/Ribonucleoprotein Ab <1.0 NEG AI (<1.0 NEG); Smith Protein <1.0 NEG AI (<1.0 NEG)
[2023-08-21 15:09] LABS: IgA 286 mg/dL (47-310); IgG 1481 mg/dL (600-1640); IgM 144 mg/dL (50-300)
[2023-08-21 15:33] LABS: Cyclic Citrullinated Peptide <16 UNITS
[2023-08-21 18:53] LABS: Prot Elec - Albumin 4.1 g/dL (3.8-4.8); Prot Elec - Alpha1 0.4 g/dL (0.2-0.3); Prot Elec - Beta 1 0.5 g/dL (0.4-0.6); Prot Elec - Beta 2 0.6 g/dL (0.2-0.5); Prot Elec - Gamma 1.3 g/dL (0.8-1.7); Prot Elec - Total Protein 7.9 g/dL (6.1-8.1)
[2023-08-23 07:48] LABS: TS Negative Control Passed; TS Panel A 0; TS Panel B 0; TS Positive Control Passed; TSpotTB Negative (Negative)
[2023-08-23 09:23] LABS: Anti Nuclear Antibody Screen NEGATIVE (NEGATIVE)
[2023-08-24 13:37] LABS: Mitochondrial Antibodies NEGATIVE (NEGATIVE)
[2023-08-25 02:18] LABS: Angiotensin Converting Enzyme 91 U/L (9-67)
[2023-08-25 07:13] LABS: Complement C3 250 mg/dL (83-193)
[2023-08-25 11:19] LABS: HLA B27 Negative (Negative)
[2023-08-25 13:58] LABS: Smooth Muscle Antibody <20 U (<20)
[2023-08-26 06:49] LABS: DNAds, Crithidia Antibody Negative (Negative)
[2023-08-26 13:47] LABS: Liver Kidney Microsomal Ab <=20.0 U (<=20.0)
== END 2023-08-20 13:16 | disposition home or self-care (01) ==
LOC: HO.LAB 13:15
PROVIDERS: Visit Provider Student in an Organized Health Care Education/Training Program
DX: Z11.7 Encounter for testing for latent tuberculosis infection (principal); Z11.59 Encounter for screening for other viral diseases; M32.9 Systemic lupus erythematosus, unspecified; M25.50 Pain in unspecified joint; R79.89 Other specified abnormal findings of blood chemistry; K50.10 Crohn's disease of large intestine without complications; I77.6 Arteritis, unspecified; D86.9 Sarcoidosis, unspecified; M45.9 Ankylosing spondylitis of unspecified sites in spine; R73.03 Prediabetes; R68.89 Other general symptoms and signs; Z72.89 Other problems related to lifestyle
CPT/HCPCS: 80053; 81001; 82164; 82570; 82784; 83036; 84156; 84165; 85025; 85652; 86015; 86021; 86036; 86038; 86140; 86160; 86200; 86225; 86235; 86255; 86334; 86376; 86381; 86431; 86481; 86671; 86704; 86706; 86709; 86803; 86812; 87340

== ENCOUNTER 2023-08-20 13:15 | Outpatient (AMB) | payer BC, SELFPAY ==
--- NOTE | 2023-08-20 13:24 | MHC.OFFVIS ---
Intake Vital Signs 08/20/23 13:26 Height 5 ft 3 in Weight 230 lb 13.184 oz BMI 40.9 BP 112/70 Blood Pressure Location Rt brachial Position Sitting Pulse 119 H Pulse Source Pulse Oximeter Pulse Oximetry (%) 96 Oxygen Delivery Method Room Air Intake Visit Reasons: Bilat foot pain/cm Intake Note: New patient presents today for consult, referred by physiatry C/o bl foot pain, evaluated by Dr Andrade. 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 Accompanied by: Mother Allergies shellfish derived [SHELLFISH DERIVED] Allergy (Severe, Verified 08/20/23 13:31) ANGIOEDEMA Medication List - Last Reconciled 08/20/23 by Teresa Adames MD blood pressure monitor As directed ciclopirox 0.77% 1 appl topical BID dicyclomine 10 mg PO BID PRN gabapentin 800 mg PO TID hydrochlorothiazide 25 mg PO DAILY hydroxyzine HCl 25 mg PO BID PRN metoprolol succinate ER 12.5 mg (1/2 x 25 mg) PO DAILY norethindrone (contraceptive) 0.35 mg PO DAILY omeprazole 20 mg PO DAILY silver sulfadiazine 1% (SSD) appl topical PRN terbinafine HCl 250 mg PO DAILY trazodone 50 mg PO DAILY PRN HPI HPI Comments History of Present Illness Details This is a 27-year-old female who presents for evaluation of diffuse pain. Back in 2020, patient presented to the hospital with abdominal pain, CT abdomen showed ileitis, colonoscopy with biopsy showed findings suggestive of inflammation, patient was started on mesalamine for presumed disease. She took it for a few months then self discontinued it. She has been following up with Gastroenterology and has not been started on any other medication for Crohn's. She states that recently she has been having lower mid back pain as well as bilateral leg nerve pain worse on the right. She was evaluated by Podiatry and no specific diagnosis was given. She was also evaluated by physiatry, L-spine MRI according to patient showed a bulging disc, right lower extremity EMG showed signs suggestive of lumbar radiculopathy. He was prescribed in 9 day course of steroid as a trial by physiatry which gave her significant relief in the 1st 3 days then as patient was tapering down her prednisone she had severe pain in her feet and she went to the emergency room. She has been having generalized swelling of her entire body. She gained about 30 lb over the last 3 years without any significant change in her diet or exercise. She also noticed reddish discoloration of her face. She has noticed some hyperpigmentation of her neck. She has significant difficulty moving her fingers. Her mother has history of RA. Patient stated that she had superficial blood clots she was on control in the past. She did not to be on a blood thinner. [facility] Medical History Screening for hypothyroidism Screening for hyperlipidemia Screening for diabetes mellitus Hypertension Surgical History History of colonoscopy History of esophagogastroduodenoscopy (EGD) Family History Father GERD (gastroesophageal reflux disease) Mother History of cancer Family history of arthritis Rheumatoid arthritis Maternal Grandfather Prostate cancer Maternal Aunt Breast cancer Other Mental health disorder Substance use disorder Social History Housing: House Alcohol intake: current Alcohol intake frequency: holidays/special occasions only Patient Tobacco Use Status: Current someday Tobacco user Tobacco use type: Cigarette Cigarettes Per Day: 3 (per week) e-Cigarette/Vaping Use: Former Use Second Hand Smoke Exposure: Yes service: No Current occupational status: employed 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 Cognitive needs: No Hearing needs: No Vision needs: No Female Reproductive History Menstrual Total pregnancies: 0 Review of Systems Const Reports fatigue, Reports headache(s), Reports weakness and Reports weight gain Eyes Details: Redness Reports blurry vision, Reports dry eyes and Reports itchy eyes ENT Reports dry mouth, Reports headache(s) and Reports sore throat Card Reports chest pain and Reports dyspnea Resp Reports cough and Reports dyspnea GI Reports heartburn and Reports nausea Reports nocturia Musc Reports back pain, Reports arthralgias, Reports joint swelling, Reports numbness, Reports radiating pain into limb, Reports stiffness and Reports tingling Skin/Breast Reports alopecia, Reports pruritus, Reports erythema and Reports rash Neuro Reports headache(s), Reports memory loss, Reports numbness, Reports tingling and Reports weakness Psych Reports abnormal sleep pattern, Reports anxiety and Reports memory loss Endo Reports fatigue and Reports polydipsia Aller/Immun Reports itchy eyes Physical Exam Vital Signs: BMI result Body Mass Index 40.9 Const General: cooperative, healthy appearing and comfortable Nutritional Appearance: obese morbidly obese Orientation/consciousness: patient oriented x3 Limitations: no limitations HEENT Other: Golden facies Head: Yes normocephalic and Yes atraumatic Mouth: moist mucous membranes Resp Effort & Inspection: normal respiratory effort and able to speak in complete sentences Auscultation: clear to auscultation bilaterally Cardio Rate: regular rate and tachycardic Rhythm: regular rhythm Skin Other: Stretch ricks on abdomen Acanthosis nigricans on neck Neuro General: patient oriented x3 Extrem Other: Significant puffy fingers bilaterally Bilateral wrist tenderness and pain with flexion and extension Bilateral use MCP tenderness Diffuse PIP tenderness No DIP tenderness Bilateral elbow pain with flexion-extension Normal range of motion of shoulders without pain Bilateral positive straight leg raise test Fedreico test 10-13 cm Equivocal ASMITA test bilaterally Trochanteric bursa area tenderness bilaterally Bilateral feet swelling and tenderness across the MTPs Normal nailfold capillaroscopy Assessment & Plan Assessment & Plan (1) Polyarthralgia: Code(s): M25.50 - Pain in unspecified joint Plan: This is a 27-year-old female with questionable history of Crohn's disease who presents for evaluation of diffuse pain including back pain, bilateral lower extremity pain, feet pain, hand pain. Will order comprehensive serology to screen for underlying autoimmune rheumatic disease Check x-rays of involved joints (2) Elevated LFTs: Code(s): R79.89 - Other specified abnormal findings of blood chemistry Plan: There is reported history of significant alcohol consumption, will check antibodies for autoimmune hepatitis (3) Cushingoid facies: Code(s): R68.89 - Other general symptoms and signs Plan: Significant weight gain over the last 3 years. Some cushingoid features. Will order 24 hour you urinary cortisol and overnight salivary cortisol test to screen for [place]'s Plan I spent 67 minutes reviewing patient's chart, evaluating patient, ordering diagnostic workup, counseling patient and documenting in the chart Orders: Orders Anti Extractable Nuclear Ag Today M32.9 - Systemic lupus erythematosus, unspecified Complement C4 Today M32.9 - Systemic lupus erythematosus, unspecified Erythrocyte Sedimentation Rate Today M32.9 - Systemic lupus erythematosus, unspecified Sjogren's Antibodies Today M32.9 - Systemic lupus erythematosus, unspecified UA w Microscopic Today M32.9 - Systemic lupus erythematosus, unspecified Immunofixation Pnl, Serum Today M32.9 - Systemic lupus erythematosus, unspecified T Spot TB Today Z11.7 - Encounter for testing for latent tuberculosis infection Cyclic Citrullinated Peptide Today M25.50 - Pain in unspecified joint Other Ref Test - Misc Today K50.10 - Crohn's disease of large intestine without complications ANCA Vasculitides Today I77.6 - Arteritis, unspecified Angiotensin Converting Enzyme Today D86.9 - Sarcoidosis, unspecified XR hand wrist LT Today M25.50 - Pain in unspecified joint XR sacroiliac joint min 3V Today M54.50 - Low back pain, unspecified Smooth Muscle Antibody Today R79.89 - Other specified abnormal findings of blood chemistry Saliva Cortisol Today 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 Thyroglobulin Antibodies Today E07.9 - Disorder of thyroid, unspecified Thyroid Peroxidase Antibodies Today E07.9 - Disorder of thyroid, unspecified Triiodothyronine T3 Free Today E07.9 - Disorder of thyroid, unspecified LAST Reflex Titer and Pattern Today M32.9 - Systemic lupus erythematosus, unspecified Anti DNA DS Antibody Today M32.9 - Systemic lupus erythematosus, unspecified Complement C3 Today M32.9 - Systemic lupus erythematosus, unspecified C Reactive Protein Today M32.9 - Systemic lupus erythematosus, unspecified DNA Double Stranded-Crithidia Today M32.9 - Systemic lupus erythematosus, unspecified Protein Creatinine Ratio, Ur Today M32.9 - Systemic lupus erythematosus, unspecified Complete Blood Count Auto Diff Today M32.9 - Systemic lupus erythematosus, unspecified Comprehensive Met. Panel Today M32.9 - Systemic lupus erythematosus, unspecified Hepatitis A,B,C Profile Today Z11.59 - Encounter for screening for other viral diseases Protein Electrophoresis, Serum Today M32.9 - Systemic lupus erythematosus, unspecified Rheumatoid Factor Today M25.50 - Pain in unspecified joint HLA B27 Today M45.9 - Ankylosing spondylitis of unspecified sites in spine Hemoglobin A1c Today R73.03 - Prediabetes XR hand wrist RT Today M25.50 - Pain in unspecified joint Liver Kidney Microsomal Ab Today R79.89 - Other specified abnormal findings of blood chemistry Mitochondrial Antibody Today R79.89 - Other specified abnormal findings of blood chemistry Cortisol, Free 24Hr Urine Today E24.0 - Pituitary-dependent [place]'s disease Thyroid Stimulating Hormone Today E07.9 - Disorder of thyroid, unspecified Free T4 (Free Thyroxine) Today E07.9 - Disorder of thyroid, unspecified Coding Level of Care Code New Pt Level 5 (85023) Diagnoses Polyarthralgia M25.50 Elevated LFTs R79.89 Cushingoid facies R68.89
[2023-08-20 13:26] VITALS: BP 112/70; PULSE 119; O2SAT 96; BMI 40.9
== END 2023-08-20 14:52 | disposition home or self-care (01) ==
PROVIDERS: PCP Nurse Practitioner Family; Visit Provider Student in an Organized Health Care Education/Training Program
DX: M25.50 Pain in unspecified joint (principal); R79.89 Other specified abnormal findings of blood chemistry; R68.89 Other general symptoms and signs
CPT/HCPCS: 99205

== ENCOUNTER 2023-08-28 15:25 | Outpatient (REF) | payer BC, SELFPAY ==
--- NOTE | ~2023-08-28 | XR_ITS ---
EXAMINATION: XR SACROILIAC JOINTS XR BILATERAL HANDS/WRISTS CLINICAL INFORMATION: Pain and unspecified joint. Patient states chronic pain in bilateral hands and wrists sacroiliac joint region. COMPARISON: None available. TECHNIQUE: 3 views of the bilateral sacroiliac joints. 4 views of each hand and wrist. FINDINGS: LEFT HAND: Bone mineralization is normal. Cystic lucency overlying the hamate. Joint spaces and bone alignment preserved. No acute displaced fracture appreciated. RIGHT HAND: Radiopaque marker placed by technologist indicating area of concern as indicated by the patient along radial aspect of the wrist. Mild degenerative changes in the first carpometacarpal joint with joint space narrowing and hypertrophic change. Bone mineralization is normal. No displaced fracture is appreciated. BILATERAL SACROILIAC JOINTS: Moderate degenerative changes in the bilateral sacroiliac joints with hypertrophic change and joint space narrowing. XR/XR hand wrist RT IMPRESSION: 1. Mild degenerative changes right first carpometacarpal joint. 2. Moderate degenerative changes in the bilateral sacroiliac joints. 3. No displaced fracture. Recommend follow-up imaging in 10-14 days if fracture of the hand is suspected.
--- NOTE | ~2023-08-28 | XR_ITS ---
EXAMINATION: XR SACROILIAC JOINTS XR BILATERAL HANDS/WRISTS CLINICAL INFORMATION: Pain and unspecified joint. Patient states chronic pain in bilateral hands and wrists sacroiliac joint region. COMPARISON: None available. TECHNIQUE: 3 views of the bilateral sacroiliac joints. 4 views of each hand and wrist. FINDINGS: LEFT HAND: Bone mineralization is normal. Cystic lucency overlying the hamate. Joint spaces and bone alignment preserved. No acute displaced fracture appreciated. RIGHT HAND: Radiopaque marker placed by technologist indicating area of concern as indicated by the patient along radial aspect of the wrist. Mild degenerative changes in the first carpometacarpal joint with joint space narrowing and hypertrophic change. Bone mineralization is normal. No displaced fracture is appreciated. BILATERAL SACROILIAC JOINTS: Moderate degenerative changes in the bilateral sacroiliac joints with hypertrophic change and joint space narrowing. XR/XR hand wrist LT IMPRESSION: 1. Mild degenerative changes right first carpometacarpal joint. 2. Moderate degenerative changes in the bilateral sacroiliac joints. 3. No displaced fracture. Recommend follow-up imaging in 10-14 days if fracture of the hand is suspected.
--- NOTE | ~2023-08-28 | XR_ITS ---
EXAMINATION: XR SACROILIAC JOINTS XR BILATERAL HANDS/WRISTS CLINICAL INFORMATION: Pain and unspecified joint. Patient states chronic pain in bilateral hands and wrists sacroiliac joint region. COMPARISON: None available. TECHNIQUE: 3 views of the bilateral sacroiliac joints. 4 views of each hand and wrist. FINDINGS: LEFT HAND: Bone mineralization is normal. Cystic lucency overlying the hamate. Joint spaces and bone alignment preserved. No acute displaced fracture appreciated. RIGHT HAND: Radiopaque marker placed by technologist indicating area of concern as indicated by the patient along radial aspect of the wrist. Mild degenerative changes in the first carpometacarpal joint with joint space narrowing and hypertrophic change. Bone mineralization is normal. No displaced fracture is appreciated. BILATERAL SACROILIAC JOINTS: Moderate degenerative changes in the bilateral sacroiliac joints with hypertrophic change and joint space narrowing. XR/XR sacroiliac joint min 3V IMPRESSION: 1. Mild degenerative changes right first carpometacarpal joint. 2. Moderate degenerative changes in the bilateral sacroiliac joints. 3. No displaced fracture. Recommend follow-up imaging in 10-14 days if fracture of the hand is suspected.
== END 2023-08-28 15:26 | disposition home or self-care (01) ==
LOC: HO.XRAY 15:25
PROVIDERS: Visit Provider Student in an Organized Health Care Education/Training Program
DX: M54.50 Low back pain, unspecified (principal); M79.642 Pain in left hand; M79.641 Pain in right hand; M25.532 Pain in left wrist; M25.531 Pain in right wrist
CPT/HCPCS: 72202; 73110; 73130

== ENCOUNTER 2023-09-07 15:12 | Outpatient (REF) | payer BC, SELFPAY | END 2023-09-07 15:13 | disposition home or self-care (01) | LOC: HO.LAB 15:12 | PROVIDERS: Visit Provider Nurse Practitioner Family | DX: Z13.89 Encounter for screening for other disorder (principal) ==

== ENCOUNTER 2023-09-07 15:12 | Outpatient (AMB) | payer BC, SELFPAY ==
--- NOTE | 2023-09-07 15:15 | A.OFFVIS_ITS ---
Intake Visit Reasons: septated renal cyst Intake Note: New Patient presents for initial visit for renal cyst Urology Medications: none Blood Thinner: none Mangle Feeder Required: No Accompanied by: Self / Same As Patient Allergies shellfish derived [SHELLFISH DERIVED] Allergy (Severe, Verified 09/07/23 20:12) ANGIOEDEMA Medication List - Last Reconciled 09/07/23 by EDWINA Rivera blood pressure monitor As directed ciclopirox 0.77% 1 appl topical BID dicyclomine 10 mg PO BID PRN gabapentin 800 mg PO TID hydrochlorothiazide 25 mg PO DAILY hydroxyzine HCl 25 mg PO BID PRN metoprolol succinate ER 12.5 mg (1/2 x 25 mg) PO DAILY norethindrone (contraceptive) 0.35 mg PO DAILY omeprazole 20 mg PO DAILY silver sulfadiazine 1% (SSD) appl topical PRN terbinafine HCl 250 mg PO DAILY trazodone 50 mg PO DAILY PRN HPI Comments Details: Nirali is a very pleasant 27-year-old female patient. She has a past medical history of hypertension. She presents to the office today as a new patient for renal cyst. In discussion with the patient today she reports having followed up with PCP as she has been having multiple medical issues since 2020. In review of patient's chart it appears an abdominal ultrasound was ordered 05/09 for elevated LFTs at which time a renal cyst was identified however it appears stable when compared to CT of the abdomen that was ordered in 2020. She discusses at length following up with multiple healthcare providers including gastroenterology for question of Crohn's disease, rheumatology for question of an autoimmune disorder, physiatry due to ongoing bilateral lower extremity n umbness, as well as psychiatry as she feels ever since she had COVID 3 years ago she has been having multiple ongoing medical issues. Discussed at length potential causes of renal cysts. Discussed surveillance monitoring. She otherwise denies any bothersome urinary issues. She denies urinary urgency, urinary frequency, incontinence, nocturia, hematuria, dysuria, foul smelling urine, changes to urinary stream, fever, and or chills. She is happy with her current voiding parameters. She does report experiencing flank pain at times. Unable to obtain urine for urinalysis. She otherwise offers no other issues or concerns at this time. [facility] Medical History Screening for hypothyroidism Screening for hyperlipidemia Screening for diabetes mellitus Hypertension Surgical History History of colonoscopy History of esophagogastroduodenoscopy (EGD) Family History Father GERD (gastroesophageal reflux disease) Mother History of cancer Family history of arthritis Rheumatoid arthritis Maternal Grandfather Prostate cancer Maternal Aunt Breast cancer Other Mental health disorder Substance use disorder Social History Housing: House Alcohol intake: current Alcohol intake frequency: holidays/special occasions only Patient Tobacco Use Status: Current someday Tobacco user Tobacco use type: Cigarette Cigarettes Per Day: 3 (per week) e-Cigarette/Vaping Use: Former Use Second Hand Smoke Exposure: Yes service: No Current occupational status: employed 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 Cognitive needs: No Hearing needs: No Vision needs: No Review of Systems Const Reports as per HPI Eyes Reports no additional complaints ENT Reports no additional complaints Card Reports as per HPI Resp Reports no additional complaints GI Reports as per HPI Reports as per HPI Musc Reports as per [facility] Neuro Reports as per [facility] Psych Reports as per HPI Endo Reports no additional complaints Physical Exam Const General: cooperative, comfortable, no acute distress, well developed, alert and awake Nutritional Appearance: overweight Orientation/consciousness: patient oriented x3 Limitations: no limitations HEENT Head: Yes normal to inspection, Yes normocephalic and Yes atraumatic Ears: hearing grossly normal bilaterally Eyes General: appearance normal, both eyes and all related structures Neck Neck: Yes normal visual inspection and Yes trachea midline Chest Chest palpation & inspection: normal inspection of the chest Resp Effort & Inspection: normal respiratory effort and able to speak in complete sentences Cardio Rate: regular rate GI Inspection: Yes normal to inspection General: Yes no CVA tenderness Back/Spine/Pelvis Back: no CVA tenderness Skin General skin exam: no rashes or lesions noted Neuro General: patient oriented x3 Extrem General: Yes normal to inspection Psych Appearance: grossly normal and well kempt Mental Status: mental status grossly normal Speech and movement: Normal speech and movement present and Clear speech present Affect: normal affect Attitude: cooperative Thought process: Normal thought process present Thought content: Normal thought content present Insight: Fair insight present (Psych) Judgement: Fair judgement present (Psych) Results Reviewed Results Reviewed: Date of Service: 04/22/23 EXAMINATION: US ABDOMEN COMPLETE FINDINGS: PANCREAS: Partially visualized pancreas is unremarkable. The tail is obscured by bowel gas. ABDOMINAL AORTA: The proximal, mid, and distal segments are normal in caliber. INFERIOR VENA CAVA: Visualized portions are normal. LIVER: Liver is enlarged with the right lobe of the liver measured 22 cm. The liver contour is normal. Liver demonstrates increased echogenicity due to hepatic steatosis. No focal hepatic lesion. There is no intrahepatic biliary duct dilatation seen. GALLBLADDER: Normal. The gallbladder is physiologically distended without evidence of stones, sludge, polyps, wall thickening or pericholecystic fluid. COMMON BILE DUCT: Normal in caliber measuring 0.4 cm in diameter. RIGHT KIDNEY: Normal. No hydronephrosis. No renal calculi or focal parenchymal lesions. The kidney measures 12.7 cm in maximum dimension. LEFT KIDNEY: No hydronephrosis. No renal calculi or focal parenchymal lesions. The kidney measures 13.4 cm in maximum dimension. There is septated lower pole 2.5 x 2.9 x 2.3 cm cyst, seen on previous CT scan. SPLEEN: Normal. The spleen measures 10.8 cm in maximum dimension. FREE FLUID: None. IMPRESSION: Hepatomegaly and hepatic steatosis. Stable septated cyst in the lower pole of left kidney. Assessment & Plan Assessment & Plan (1) Renal cyst: Code(s): N28.1 - Cyst of kidney, acquired Category: Medical Plan Unable to obtain urine for urinalysis however PVR 0 mL. Recent abdominal ultrasound results reviewed with the patient today; it appears renal cyst is not new when compared to previous imaging such as CT from 2020. Discussed at length potential causes for renal cysts. Discussed surveillance monitoring. Patient denies any bothersome urinary issues or concerns She reports be happy with current voiding parameters Will obtain CT renal mass protocol in 6 months BUN and creatinine ordered for imaging Follow-up in 6 months with imaging to be completed prior; or sooner with any issues, concerns, and or questions. Orders: Orders AMB Urinalysis Automated Today Z13.9 - Encounter for screening, unspecified CT abdomen pelvis wo/w IV con 6 Months N28.1 - Cyst of kidney, acquired Blood Urea Nitrogen 6 Months N28.1 - Cyst of kidney, acquired Creatinine 6 Months N28.1 - Cyst of kidney, acquired Patient Instructions: The patient had an opportunity to ask questions regarding the treatment plan. All questions were answered. Physical exam, labs, and imaging were discussed and reviewed in detail. As well as risks, benefits, and discussion of treatment choices. No major barriers to understanding were identified. The patient expressed understanding and agreement with the above treatment plan. The patient was made aware they should contact our office by phone for worsening of their current condition, the appearance of new symptoms, or with any questions or concerns. Compliance is encouraged with any medications and follow up testing that is ordered. It is a privilege to be allowed the opportunity to participate in? your urological care.? Again, if you have any questions or concerns If you have any questions or concerns please do not hesitate to contact me. The office is [phone]. This note is constructed using voice recognition software. While every effort has been made to ensure accuracy checking department supervisor errors may have been included. Yours sincerely, EDWINA Rivera
== END 2023-09-07 15:56 | disposition home or self-care (01) ==
LOC: HO.HUSH 15:12
PROVIDERS: Visit Provider Nurse Practitioner Family
DX: N28.1 Cyst of kidney, acquired (principal)
CPT/HCPCS: 99204

== ENCOUNTER 2023-09-25 18:35 | Outpatient (REF) | payer BC, SELFPAY ==
[2023-10-06 22:03] LABS: Cortisol Free, 24 Hr Urine 6.2 mcg/24 h (4.0-50.0); Creatinine, 24 Hr Urine 0.86 g/24 h (0.50-2.15); Total Volume, 24 Hr Urine 1200 mL
[2023-10-07 18:14] LABS: Saliva Cortisol 0.08 mcg/dL
== END 2023-09-25 18:36 | disposition home or self-care (01) ==
LOC: HO.LNP 18:35
PROVIDERS: Visit Provider Student in an Organized Health Care Education/Training Program
DX: E24.0 Pituitary-dependent Cushing's disease (principal)
CPT/HCPCS: 82530

== ENCOUNTER 2023-10-26 12:35 | Outpatient (AMB) | payer BC, SELFPAY ==
[2023-10-26 12:38] VITALS: BP 116/74; PULSE 116; O2SAT 97; BMI 41.4
--- NOTE | 2023-10-26 12:38 | MHC.OFFVIS ---
Vital Signs 10/26/23 12:38 Height 5 ft 3 in Weight 233 lb 14.567 oz BMI 41.4 BP 116/74 Blood Pressure Location Rt brachial Position Sitting Pulse 116 H Pulse Source Pulse Oximeter Pulse Oximetry (%) 97 Oxygen Delivery Method Room Air Intake Visit Reasons: foot pain/CM Intake Note: Patient last seen 08/20/23 presents today for follow up and test results. 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: No Accompanied by: Significant Other Allergies shellfish derived [SHELLFISH DERIVED] Allergy (Severe, Verified 10/26/23 12:47) ANGIOEDEMA Medication List - Last Reconciled 10/26/23 by Teresa Adames MD blood pressure monitor As directed ciclopirox 0.77% 1 appl topical BID dicyclomine 10 mg PO BID PRN gabapentin 800 mg PO TID hydrochlorothiazide 25 mg PO DAILY hydroxyzine HCl 25 mg PO BID PRN metoprolol succinate ER 12.5 mg (1/2 x 25 mg) PO DAILY norethindrone (contraceptive) 0.35 mg PO DAILY omeprazole 20 mg PO DAILY silver sulfadiazine 1% (SSD) appl topical PRN terbinafine HCl 250 mg PO DAILY trazodone 50 mg PO DAILY PRN HPI Comments Details: Patient returns for follow-up after completion of her diagnostic workup. Continues to feel about the same. Initial history: This is a 27-year-old female who presents for evaluation of diffuse pain. Back in 2020, patient presented to the hospital with abdominal pain, CT abdomen showed ileitis, colonoscopy with biopsy showed findings suggestive of inflammation, patient was started on mesalamine for presumed disease. She took it for a few months then self discontinued it. She has been following up with Gastroenterology and has not been started on any other medication for Crohn's. She states that recently she has been having lower mid back pain as well as bilateral leg nerve pain worse on the right. She was evaluated by Podiatry and no specific diagnosis was given. She was also evaluated by physiatry, L-spine MRI according to patient showed a bulging disc, right lower extremity EMG showed signs suggestive of lumbar radiculopathy. He was prescribed in 9 day course of steroid as a trial by physiatry which gave her significant relief in the 1st 3 days then as patient was tapering down her prednisone she had severe pain in her feet and she went to the emergency room. She has been having generalized swelling of her entire body. She gained about 30 lb over the last 3 years without any significant change in her diet or exercise. She also noticed reddish discoloration of her face. She has noticed some hyperpigmentation of her neck. She has significant difficulty moving her fingers. Her mother has history of RA. Patient stated that she had superficial blood clots she was on control in the past. She did not to be on a blood thinner. [facility] Medical History (Updated 10/26/23 @ 13:08 by Teresa Adames MD) Crohn's disease Prediabetes Screening for hypothyroidism Screening for hyperlipidemia Hypertension Surgical History History of colonoscopy History of esophagogastroduodenoscopy (EGD) Family History Father GERD (gastroesophageal reflux disease) Mother History of cancer Family history of arthritis Rheumatoid arthritis Maternal Grandfather Prostate cancer Maternal Aunt Breast cancer Other Mental health disorder Substance use disorder Social History Housing: House Alcohol intake: current Alcohol intake frequency: holidays/special occasions only Patient Tobacco Use Status: Current someday Tobacco user Tobacco use type: Cigarette Cigarettes Per Day: 3 (per week) e-Cigarette/Vaping Use: Former Use Second Hand Smoke Exposure: Yes service: No Current occupational status: employed 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 Cognitive needs: No Hearing needs: No Vision needs: No Female Reproductive History Menstrual Total pregnancies: 0 Review of Systems Const Reports weakness and Reports weight gain GI Reports heartburn and Reports nausea Musc Reports back pain, Reports arthralgias, Reports joint swelling, Reports numbness, Reports radiating pain into limb, Reports stiffness and Reports tingling Neuro Reports numbness, Reports tingling and Reports weakness Psych Reports abnormal sleep pattern and Reports anxiety Physical Exam Vital Signs: Last Vital Signs Pulse 116 H 10/26/23 12:38 BP 116/74 10/26/23 12:38 Pulse Ox 97 10/26/23 12:38 Oxygen Delivery Method Room Air 10/26/23 12:38 BMI result Body Mass Index 41.4 Const General: cooperative, healthy appearing and comfortable Nutritional Appearance: obese morbidly obese Orientation/consciousness: patient oriented x3 Limitations: no limitations HEENT Other: Golden facies Head: Yes normocephalic and Yes atraumatic Mouth: moist mucous membranes Resp Effort & Inspection: normal respiratory effort and able to speak in complete sentences Cardio Rate: regular rate Skin Other: Stretch ricks on abdomen Acanthosis nigricans on neck Neuro General: patient oriented x3 Extrem Other: Significant puffy fingers bilaterally Bilateral wrist tenderness and pain with flexion and extension Bilateral use MCP tenderness Diffuse PIP tenderness No DIP tenderness Bilateral elbow pain with flexion-extension Normal range of motion of shoulders without pain Bilateral positive straight leg raise test Federico test 10-13 cm Equivocal ASMITA test bilaterally Trochanteric bursa area tenderness bilaterally Bilateral feet swelling and tenderness across the MTPs Normal nailfold capillaroscopy Assessment & Plan Assessment & Plan (1) Non-radiographic axial spondyloarthritis: Code(s): M45.A0 - Non-radiographic axial spondyloarthritis of unspecified sites in spine Category: Medical Plan: This is a 27-year-old female with history of Crohn's colitis who presents for evaluation of diffuse joint pain. On exam patient has multiple swollen and tender joints. She also has significant low back pain. She has ++ ASCA IgG ++ ASCA IgA. She used to take mesalamine for her Crohn's colitis but she self discontinued it. Patient has failed prednisone. Physical therapy was not helpful as well. Labs show significantly elevated inflammatory markers. Will need to start a DMARD. NSAIDs would be contraindicated due to her history of Crohn's colitis. Other DMARDs such as methotrexate, leflunomide, sulfasalazine would be contraindicated due to her significant transaminitis Discussed risks and benefits of adalimumab. Patient agreed to proceed. Will start prior authorization for Humira. 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 Patient aware. 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
== END 2023-10-26 12:57 | disposition home or self-care (01) ==
PROVIDERS: Visit Provider Student in an Organized Health Care Education/Training Program
DX: M45.A0 Non-radiographic axial spondyloarthritis of unspecified sites in spine (principal); Z79.620 Long term (current) use of immunosuppressive biologic
CPT/HCPCS: 99214

== ENCOUNTER → 2023-10-26 12:35 | Outpatient (BNVA) | payer BC, SELFPAY | PROVIDERS: Visit Provider Student in an Organized Health Care Education/Training Program ==

== ENCOUNTER 2023-12-24 15:29 | Outpatient (AMB) | payer BC, SELFPAY ==
--- NOTE | 2023-12-24 15:36 | A.OFFPC_ITS ---
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 Intake Note: New patient visit Communications Intern Required: No Allergies shellfish derived [SHELLFISH DERIVED] Allergy (Severe, Verified 12/24/23 15:36) ANGIOEDEMA Medication List - Last Reconciled 12/24/23 by Jenny Wilkinson PA-C blood pressure monitor As directed ciclopirox 0.77% 1 appl topical BID dicyclomine 10 mg PO BID PRN gabapentin 800 mg PO TID Humira(CF) Pen (adalimumab) inject one - 40 mg/0.4 mL pen every 2 weeks subcut NS hydrochlorothiazide 25 mg PO DAILY hydroxyzine HCl 25 mg PO BID PRN lorazepam 1 mg PO BID metoprolol succinate ER 12.5 mg (1/2 x 25 mg) PO DAILY norethindrone (contraceptive) 0.35 mg PO DAILY omeprazole 20 mg PO DAILY trazodone 50 mg PO DAILY PRN Tobacco use date assessed: 12/24/23 Dental Screening Dental Screen Date: 12/24/23 Did you have a dental visit in the last 12 months?: No Did you have a dental problem in the last 6 months where you did not have access to dental care?: No Was dental information given to patient?: Patient declined (Patient looking for one that takes her insurance) HPI 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 She is transferring internally. -she does have a list of concerns today in states that overall she has been unwell since . She states that she has had abdominal pain, diarrhea, a diagnosis of Crohn's disease, elevated liver function tests, joint pains and swelling and high blood pressure. She states all of this has been new over the last few years and prior to that she was healthy and ?thin?. CV: Blood pressure today in the office is 148/92. She is on hydrochlorothiazide 25 mg, metoprolol 12.5 mg daily. Her pulse is elevated today and has been on previous visits as well. She states that she does feel palpitations regularly. She states that she can feel her heart skipped beats and race. She denies any chest pain, shortness of breath or dizziness. She does report leg swelling but states it is mostly in her joints. Rheum: Follows with Rheumatology, Dr. Adames. Back in 2020, patient presented to the hospital with abdominal pain, CT abdomen showed ileitis, colonoscopy with biopsy showed findings suggestive of inflammation, patient was started on mesalamine for presumed disease. She took it for a few months then self discontinued it. She has been following up with Gastroenterology and has not been started on any other medication for Crohn's. She states that recently she has been having lower mid back pain as well as bilateral leg nerve pain worse on the right. She was evaluated by Podiatry and no specific diagnosis was given. She was also evaluated by physiatry, L- spine MRI according to patient showed a bulging disc, right lower extremity EMG showed signs suggestive of lumbar radiculopathy. She was prescribed in 9 day course of steroid as a trial by physiatry which gave her significant relief in the 1st 3 days then as patient was tapering down her prednisone she had severe pain in her feet and she went to the emergency room. She has been having generalized swelling of her entire body. She gained about 30 lb over the last 3 years without any significant change in her diet or exercise. She also noticed reddish discoloration of her face. She has noticed some hyperpigmentation of her neck. She has significant difficulty moving her fingers. Her mother has history of RA and lupus. Patient stated that she had superficial blood clots she was on control in the past. She did not to be on a blood thinner. -at their last visit she was started on Humira and she states that she does not feel like she is getting better. She states that it does not feel significantly worse but just does not feel like she is having any improvement of her symptoms. She tells me today that her ankle looks colon along with her feet. She states that she has a slight rash left foot. It is nontender or raised. -states pain is being managed with gabap entin which is not overly effective. She also uses marijuana which is slightly beneficial. Later she did report increased alcohol use to help also with her pain management. Derm: Reports the rash on the top of the left foot and states that she has another rash on her neck and scalp. It is raised, pink and flaky. She has been using dandruff shampoo for her scalp and states that it helps minimally. Denies any recent travel, change in her hygiene products. GI: Last saw Dr. Tomlinson in 2020. She has significant transaminitis. A. Duodenum, ascending, biopsy: Chronic inactive duodenitis. B. Stomach, antrum, biopsy: Antral- type with moderate chronic, focally active, inflammation and focal granulomatous inflammation; no Helicobacter organisms seen. C. EG junction, 34 cm, biopsy: - Cardiofundic- type mucosa with moderat e chronic active inflammation; no intestinal metaplasia seen. - Chronic esophagitis. D. Terminal ileum, biopsy: Ileocolonic mucosa with chronic, mildly active, inflammation. E. Colon, ascending, biopsy: Colonic mucosa within normal limits. F. Colon, descending, biopsy: Focally active colitis; no fully- developed chronic injury seen. COMMENT: No dysplasia or granulomata are seen in the lower GI samples. Diagnostic features of celiac disease are not seen. The focal granulomatous inflammation in the stomach may be secondary to pit rupture or be a manifestation of upper tract involvement by inflammatory bowel disease Psych: Her PHQ-9 and BLAYNE numbers elevated and she is on hydroxyzine needed and trazodone 50 mg nightly. States that she does not sleep well at night and will often wake up gasping for air. She is not currently with a psychiatrist. Initially in our office visit she reported only socially drinking a few nights a week with a couple glasses of wine. -after I reviewed her chart further, as we spent about 55 minute in the office, I called her and spoke with her for an additional 15 minutes about her labs, history and her alcohol intake. She did actually reported that she drinks heavily almost nightly. She states that she has about 4 glasses of wine at night and on the weekends will also have shots and hard alcohol. She states that she drinks to help curb with the pain. She states that she has to drink to fall asleep. [facility] Medical History (Updated 12/25/23 @ 10:25 by Jenny Wilkinson PA-C) Crohn's disease Prediabetes Screening for hypothyroidism Screening for hyperlipidemia Hypertension Surgical History History of colonoscopy History of esophagogastroduodenoscopy (EGD) Family History Father GERD (gastroesophageal reflux disease) Mother History of cancer Family history of arthritis Rheumatoid arthritis Maternal Grandfather Prostate cancer Maternal Aunt Breast cancer Other Mental health disorder Substance use disorder Social History Housing: House Alcohol intake: current Alcohol intake frequency: holidays/special occasions only Patient Tobacco Use Status: Current someday Tobacco user Tobacco use type: Cigarette Cigarettes Per Day: 3 (per week) Years Smoked: 3 e-Cigarette/Vaping Use: Former Use Second Hand Smoke Exposure: Yes service: No Current occupational status: employed 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 1. Little interest or pleasure in doing things: several days 2. Feeling down, depressed, or hopeless: several days 3. Trouble falling or staying asleep, or sleeping too much: several days 4. Feeling tired or having little energy: nearly every day 5. Poor appetite or overeating: more than half the days 6. Feeling bad about yourself - or that you are a failure or have let yourself or your family down: more than half the days 7. Trouble concentrating on things, such as reading the newspaper or watching television: nearly every day 8. Moving or speaking so slowly that other people could have noticed. Or the opposite - being so fidgety or restless that you have been moving around a lot more than usual: several days 9. Thoughts that you would be better off or of hurting yourself in some way: not at all Total score: 14 Depression Screening Interpretation: Positive Depression Screening Done: Yes 35954 - PHQ-9 Billing: Yes Source: Developed by Drs. Torres Gabriel, Kiana Mena, Willi Ponce and colleagues, with an educational gordon from [employer]. Thrive Questionnaire Date Thrive assessed: 12/24/23 I am a: Patient What is your living situation today?: I have a steady place to live Within the past 12 months, did the food you bought not last and you didn't have the money to get more?: Never true Within the past 12 months, did you worry whether your food would run out before you got money to buy more?: Never true Do you have trouble paying for medicines?: No Do you have trouble getting transportation to medical appointments?: No Do you have trouble paying your heating and electricity bill?: No Do you have trouble taking care of your child, family member or friend?: No Do you have trouble with day-to-day activities such as bathing, preparing meals, shopping, managing finances, etc.?: No Are you currently unemployed and looking for a job?: No Are you interested in more education?: No Please select the resources that you would like help with: None Currently or been in a relationship where the following occur: No concerns reported THRIVE Score: 0 AUDIT C Alcohol Use Questionnaire (AUDIT-C) 1. How often do you have a drink containing alcohol?: 2-3 times a week 2. How many drinks containing alcohol do you have on a typical day when you are drinking?: 3 or 4 3. How often do you have six or more drinks on one occasion?: Weekly Total Score: 7 Score Reviewed/Action Taken: Yes BLAYNE-7 AMB Questionnaire BLAYNE-7 Date BLAYNE - 7 assessed: 12/24/23 Feeling nervous, anxious, or on edge: 2 = More than half the days Not being able to stop or control worryin = More than half the days Worrying too much about different things: 2 = More than half the days Trouble relaxin = More than half the days Being so restless that it is hard to sit still: 1 = Several days Becoming easily annoyed or irritable: 2 = More than half the days Feeling afraid as if something awful might happen: 1 = Several days Total BLAYNE-7 score (0-4 normal; 5-9 mild; 10-14 moderate; 15-21 severe): 12 Source: Developed by Drs. Torres Gabriel, Kiana Mena, Willi Ponce and colleagues, with an educational gordon from [employer]. BLAYNE-7 Assessment Billing BLAYNE-7 Assessment Tool: BLAYNE-7 Assessment [id number] Physical exam (Primary Care) Vital Signs: Last Vital Signs Pulse 105 H 12/24/23 15:50 Resp 16 12/24/23 15:50 BP 148/92 H 12/24/23 15:55 Pulse Ox 96 12/24/23 15:50 Oxygen Delivery Method Room Air 12/24/23 15:50 BMI result Body Mass Index 41.2 Tobacco/Smoking Status: Tobacco use Status Tobacco use date assessed 12/24/23 12/24/23 15:40 Patient Tobacco Use Status Current someday Tobacco 12/24/23 15:40 Tobacco use type Cigarette 12/24/23 15:40 e-Cigarette/Vaping Use Former Use 12/24/23 15:40 PHQ-9: PHQ-9 Score PHQ-9: Total score 14 12/25/23 09:23 Depression Screening Interpretation: Positive Thrive Assessment: Date of Thrive Assessment Date Thrive assessed 12/24/23 12/24/23 16:00 Currently or been in a relationship where the following occur: No concerns reported Const Orientation/consciousness: patient oriented x3 HENAK Ears: hearing grossly normal bilaterally Neck Thyroid: Thyroid normal Lymphatic: no lymphadenopathy noted Resp Auscultation: clear to auscultation bilaterally Cardio Rate: regular rate Rhythm: regular rhythm GI Other: Nontender Inspection: Yes normal to inspection Palpation (GI): Soft to palpation Auscultation: normoactive bowel sounds Skin Other: She does have a slightly raised, erythematous, flaky rash noted on her anterior chest wall and around her hairline. A similar appearing rash noted throughout the scalp. -pictures on her phone were taken today of this On the dorsum of her bilateral feet she does have a fine, erythematous, nonblanching, flat petechial like rash noted Neuro General: patient oriented x3, gait normal and no focal motor deficits Extrem Other: She does have some soft tissue swelling noted over the bilateral ankles. No erythema. Full range of motion. Good capillary refill. Results Reviewed Results Reviewed: Laboratory Tests 08/20/23 14:57 Hepatitis A IgM Ab Nonreactive Hep Bs Antigen Negative Hep Bs Antibody NONREACTIVE Hep B Core Total Ab Nonreactive Hepatitis C Ab (EIA) Nonreactive TB Test (T-Spot) Com Negative TB Test Nil Control Passed TB Test Positive Cntrl Passed Laboratory Tests 04/07/23 08/20/23 16:56 14:57 WBC 9.4 RBC 4.24 Hgb 13.7 Hct 39.6 Plt Count 362 ESR 65 H Sodium 140 Potassium 3.1 L Chloride 97 Carbon Dioxide 28 BUN 9 Creatinine 0.84 Estimated GFR > 60 Hemoglobin A1c % 6.3 H AST 276 H ALT 156 H Alkaline Phosphatase 124 H Liver Fibrosis ALT 186 H Liver g-5-Yaptnyporxmtm 172 Liver Haptoglobin 290 H C-Reactive Protein 4.88 H Total Protein 8.5 H US/US abdomen complete IMPRESSION: Hepatomegaly and hepatic steatosis. Stable septated cyst in the lower pole of left kidney. Results Reviewed: Date of Service: 04/22/23 EXAMINATION: US ABDOMEN COMPLETE FINDINGS: PANCREAS: Partially visualized pancreas is unremarkable. The tail is obscured by bowel gas. ABDOMINAL AORTA: The proximal, mid, and distal segments are normal in caliber. INFERIOR VENA CAVA: Visualized portions are normal. LIVER: Liver is enlarged with the right lobe of the liver measured 22 cm. The liver contour is normal. Liver demonstrates increased echogenicity due to hepatic steatosis. No focal hepatic lesion. There is no intrahepatic biliary duct dilatation seen. GALLBLADDER: Normal. The gallbladder is physiologically distended without evidence of stones, sludge, polyps, wall thickening or pericholecystic fluid. COMMON BILE DUCT: Normal in caliber measuring 0.4 cm in diameter. RIGHT KIDNEY: Normal. No hydronephrosis. No renal calculi or focal parenchymal lesions. The kidney measures 12.7 cm in maximum dimension. LEFT KIDNEY: No hydronephrosis. No renal calculi or focal parenchymal lesions. The kidney measures 13.4 cm in maximum dimension. There is septated lower pole 2.5 x 2.9 x 2.3 cm cyst, seen on previous CT scan. SPLEEN: Normal. The spleen measures 10.8 cm in maximum dimension. FREE FLUID: None. IMPRESSION: Hepatomegaly and hepatic steatosis. Stable septated cyst in the lower pole of left kidney. LEFT HAND: Bone mineralization is normal. Cystic lucency overlying the hamate. Joint spaces and bone alignment preserved. No acute displaced fracture appreciated. RIGHT HAND: Radiopaque marker placed by technologist indicating area of concern as indicated by the patient along radial aspect of the wrist. Mild degenerative changes in the first carpometacarpal joint with joint space narrowing and hypertrophic change. Bone mineralization is normal. No displaced fracture is appreciated. BILATERAL SACROILIAC JOINTS: Moderate degenerative changes in the bilateral sacroiliac joints with hypertrophic change and joint space narrowing. XR/XR sacroiliac joint min 3V IMPRESSION: 1. Mild degenerative changes right first carpometacarpal joint. 2. Moderate degenerative changes in the bilateral sacroiliac joints. 3. No displaced fracture. Recommend follow-up imaging in 10-14 days if fracture of the hand is suspected. FL/FL small bowel follow through IMPRESSION: 1. Mild delay in small bowel transit. 2. Somewhat featureless terminal ileum. This has the appearance of terminal ileitis with Crohn's included within the differential diagnosis. Assessment and Plan Assessment & Plan (1) Rash: Code(s): R21 - Rash and other nonspecific skin eruption Plan: She did take a picture today of her rashes. Will treat the neck and scalp with clobetasol. ? Psoriasis. I have referred her to [facility]. She is aware that psoriasis is also a potential side effect related to Humira. (2) Hypertension: Code(s): I10 - Essential (primary) hypertension Qualifiers: Hypertension type: unspecified Qualified Code(s): I10 - Essential (primary) hypertension Plan: Blood pressure elevated today above goal. She states that she did not take her metoprolol yet. (3) Palpitations: Code(s): R00.2 - Palpitations Plan: Echo, Holter and labs ordered. I have encouraged her to continue with the metoprolol. Discussed possibly increasing this dosage as well. I will have her follow-up in a couple weeks to be re-evaluated. Sleep study also ordered. I had an extensive phone call after the visit with the patient discussing her heavy alcohol use and the correlation. (4) Elevated LFTs: Code(s): R79.89 - Other specified abnormal findings of blood chemistry Plan: Discussed her alcohol abuse and that it is leading to liver damage. We did discuss that liver damage can become irreversible and result in early . I have strongly encouraged her to stop drinking and to cut back. She states that she can go a couple days without any withdrawal symptoms. We did discuss that withdrawal from alcohol can cause seizures. I have referred her back to GI for this and Crohn's disease. (5) Crohn's disease: Code(s): K50.90 - Crohn's disease, unspecified, without complications Qualifiers: Gastrointestinal tract location: unspecified location Digestive disease complication type: without complication Qualified Code(s): K50.90 - Crohn's disease, unspecified, without complications Plan: as above. 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 Labs ordered. (9) Witnessed apneic spells: Code(s): R06.81 - Apnea, not elsewhere classified Plan: Sleep study ordered (10) Alcohol abuse: Code(s): F10.10 - Alcohol abuse, uncomplicated Plan: As listed above. Advised patient to quit. Offered assistance and referrals but declines. Plan more than 80 mins spent in face to face time today and reviewing chart. Orders: Orders Liver Panel 12/24/23 R21 - Rash and other nonspecific skin eruption, R79.89 - Other specified abnormal findings of blood chemistry TSH reflex Free T4 12/24/23 R21 - Rash and other nonspecific skin eruption Basic Metabolic Panel 12/24/23 R21 - Rash and other nonspecific skin eruption ANCA Vasculitides Today I10 - Essential (primary) hypertension, M45.A0 - Non- radiographic axial spondyloarthritis of unspecified sites in spine, R00.2 - Palpitations, R21 - Rash and other nonspecific skin eruption, R77.8 - Other specified abnormalities of plasma proteins, R79.89 - Other specified abnormal findings of blood chemistry, Z79.620 - 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 Protein Electrophoresis,Ran Ur Today I10 - Essential (primary) hypertension, M45.A0 - Non-radiographic axial spondyloarthritis of unspecified sites in spine, R00.2 - Palpitations, R21 - Rash and other nonspecific skin eruption, R77.8 - Other specified abnormalities of plasma proteins, R79.89 - Other specified abnormal findings of blood chemistry, Z79.620 - correction (current) use of immunosuppressive biologic Complete Blood Count Auto Diff 12/24/23 R21 - Rash and other nonspecific skin eruption Hemoglobin A1c 12/24/23 R21 - Rash and other nonspecific skin eruption RT home sleep study 12/24/23 Tryptase Today I10 - Essential (primary) hypertension, M45.A0 - Non- radiographic axial spondyloarthritis of unspecified sites in spine, R00.2 - Palpitations, R21 - Rash and other nonspecific skin eruption, R77.8 - Other specified abnormalities of plasma proteins, R79.89 - Other specified abnormal findings of blood chemistry, Z79. - correction (current) use of immunosuppressive biologic Protein Electrophoresis, Serum Today I10 - Essential (primary) hypertension, M45.A0 - Non-radiographic axial spondyloarthritis of unspecified sites in spine, R00.2 - Palpitations, R21 - Rash and other nonspecific skin eruption, R77.8 - Other specified abnormalities of plasma proteins, R79.89 - Other specified abnormal findings of blood chemistry, Z79.620 - correction (current) use of immunosuppressive biologic CA echo transthoracic complete Today I10 - Essential (primary) hypertension, R00.2 - Palpitations ECG holter monitor 24 hour Today I10 - Essential (primary) hypertension, R00.2 - Palpitations Referrals Gastroenterology Referral F10.10 - Alcohol abuse, uncomplicated, K50.90 - Crohn's disease, unspecified, without complications, R79.89 - Other specified abnormal findings of blood chemistry Dermatology Referral R21 - Rash and other nonspecific skin eruption Medications: New clobetasol 0.05% 1 appl topical BID 2 weeks 60 grams 0RF clobetasol 0.05% 1 appl topical DAILY 2 weeks 50 mL 2RF Coding Level of Care Code Est Pt Level 5 (83644) Complex EM visit Add On G2211 Diagnoses Rash R21 Hypertension, unspecified type I10 Hypertension type: unspecified Palpitations R00.2 Elevated LFTs R79.89 Crohn's disease without complication, unspecified gastrointestinal tract location K50.90 Gastrointestinal tract location: unspecified location Digestive disease complication type: without complication Non-radiographic axial spondyloarthritis M45.A0 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
[2023-12-24 15:50] VITALS: BP 152/80; PULSE 105; RESP 16; O2SAT 96; BMI 41.2
[2023-12-24 15:55] VITALS: BP 148/92
== END 2023-12-24 16:40 | disposition home or self-care (01) ==
PROVIDERS: Visit Provider Physician Assistant
DX: R21 Rash and other nonspecific skin eruption (principal); K50.90 Crohn's disease, unspecified, without complications; M45.A0 Non-radiographic axial spondyloarthritis of unspecified sites in spine; I10 Essential (primary) hypertension; R00.2 Palpitations; R79.89 Other specified abnormal findings of blood chemistry; Z79.620 Long term (current) use of immunosuppressive biologic; R77.8 Other specified abnormalities of plasma proteins; R06.81 Apnea, not elsewhere classified; F10.10 Alcohol abuse, uncomplicated
CPT/HCPCS: 99215; 99417

== ENCOUNTER 2024-01-14 14:46 | Outpatient (AMB) | payer BC, SELFPAY ==
--- NOTE | 2024-01-14 14:48 | MHC.PC.OV ---
Vital Signs 01/14/24 14:55 Height 5 ft 3 in Weight 230 lb 4 oz BMI 40.8 BP 120/70 Blood Pressure Location Rt brachial Position Sitting Respiration 16 Pulse 102 H Pulse Source Pulse Oximeter Temp 98.6 F Temp Source Oral Pulse Oximetry (%) 96 Oxygen Delivery Method Room Air Intake Visit Reasons: 30 min, felicita concerns Intake Note: patient here to follow up on last visit. 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: No Is last menstrual period known: Yes (2 years ago) Post menopausal: No Patient : No Allergies shellfish derived [SHELLFISH DERIVED] Allergy (Severe, Verified 01/14/24 14:52) ANGIOEDEMA Medication List - Last Reconciled 01/14/24 by Jenny Wilkinson PA-C blood pressure monitor As directed ciclopirox 0.77% 1 appl topical BID clobetasol 0.05% 1 appl topical BID 2 weeks clobetasol 0.05% 1 appl topical DAILY 2 weeks dicyclomine 10 mg PO BID PRN gabapentin 800 mg PO TID Humira(CF) Pen (adalimumab) inject one - 40 mg/0.4 mL pen every 2 weeks subcut NS hydrochlorothiazide 25 mg PO DAILY hydroxyzine HCl 25 mg PO BID PRN metoprolol succinate ER 12.5 mg (1/2 x 25 mg) PO DAILY norethindrone (contraceptive) 0.35 mg PO DAILY omeprazole 20 mg PO DAILY trazodone 50 mg PO DAILY PRN Tobacco use date assessed: 12/24/23 Dental Screening Dental Screen Date: 01/14/24 Did you have a dental visit in the last 12 months?: No Did you have a dental problem in the last 6 months where you did not have access to dental care?: No Was dental information given to patient?: Patient declined HPI 30 min, felicita concerns HPI Details Patient is a 28-year-old female who presents today for a follow up. At our last visit we addressed her numerous medical conditions. Please see previous note for further details. She is excited to tell me today that she has not had alcohol in 2 weeks. She did this at home. She states that she was drinking more than she admitted to drinking. She cut out hard alcohol for the 1st week and then had to wean herself off of wine. Her significant other did this with her. She says that they are both feeling much better. She is feeling like she is sleeping better, she no longer has any hot flashes and she has lost a few lb. She thinks that her face is getting a little thinner. She states that since stopping drinking she still has the muscle aches and pains and they are still very noticeable to her. She states that the alcohol help take the edge off of this. She does have an upcoming appointment with her wire wrapping machine operator. Her diarrhea symptoms from Crohn's disease is improved with discontinuation of alcohol. She states that she still has diarrhea numerous times a day but it is not as severe as before. She also tells me for the 1st time in a long time her blood pressures look good. Her blood pressure today is 120/70. She is on metoprolol 12.5 mg daily and hydrochlorothiazide 25 mg. [facility] Medical History (Updated 01/14/24 @ 15:22 by Jenny Wilkinson PA-C) Crohn's disease Prediabetes Screening for hypothyroidism Screening for hyperlipidemia Hypertension Surgical History History of colonoscopy History of esophagogastroduodenoscopy (EGD) Family History Father GERD (gastroesophageal reflux disease) Mother History of cancer Family history of arthritis Rheumatoid arthritis Maternal Grandfather Prostate cancer Maternal Aunt Breast cancer Other Mental health disorder Substance use disorder Social History Housing: House Alcohol intake: current Alcohol intake frequency: holidays/special occasions only Patient Tobacco Use Status: Current someday Tobacco user Tobacco use type: Cigarette Cigarettes Per Day: 3 (per week) Years Smoked: 3 e-Cigarette/Vaping Use: Former Use Second Hand Smoke Exposure: Yes service: No Current occupational status: employed 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 Torres Gabriel, Kiana Mena, Willi Ponce and colleagues, with an educational gordon from [employer]. Physical exam (Primary Care) Vital Signs: Last Vital Signs Temp 98.6 F 08/29/24 14:55 Pulse 102 H 01/14/24 14:55 Resp 16 01/14/24 14:55 BP 120/70 01/14/24 14:55 Pulse Ox 96 01/14/24 14:55 Oxygen Delivery Method Room Air 01/14/24 14:55 BMI result Body Mass Index 40.8 Tobacco/Smoking Status: Tobacco use Status Tobacco use date assessed 12/24/23 01/14/24 14:51 Patient Tobacco Use Status Current someday Tobacco 01/14/24 14:51 Tobacco use type Cigarette 01/14/24 14:51 e-Cigarette/Vaping Use Former Use 01/14/24 14:51 Thrive Assessment: Date of Thrive Assessment Date Thrive assessed 12/24/23 01/14/24 14:51 Const Orientation/consciousness: patient oriented x3 HENMT Ears: hearing grossly normal bilaterally Neck Thyroid: Thyroid normal Lymphatic: no lymphadenopathy noted Resp Auscultation: clear to auscultation bilaterally Cardio Rate: regular rate Rhythm: regular rhythm Heart sounds: S1 normal heart sound present and S2 normal heart sound present GI Inspection: Yes normal to inspection Palpation (GI): Soft to palpation and Other GI palpation findings present (nontender, no cva tenderness) Auscultation: normoactive bowel sounds Rectal Exam - Female: deferred Skin General skin exam: no rashes or lesions noted Neuro General: patient oriented x3, gait normal and no focal motor deficits Assessment and Plan Assessment & Plan (1) Alcohol abuse: Code(s): F10.10 - Alcohol abuse, uncomplicated Plan: sober x 2 weeks. congratulated on sobriety. (2) Crohn's disease: Code(s): K50.90 - Crohn's disease, unspecified, without complications Qualifiers: Gastrointestinal tract location: unspecified location Digestive disease complication type: without complication Qualified Code(s): K50.90 - Crohn's disease, unspecified, without complications Plan: improved but still symptomatic (3) residential (current) use of immunosuppressive biologic: Code(s): Z79.620 - lobsterman (current) use of immunosuppressive biologic Plan: following with rheum 01/26 (4) Polyarthralgia: Code(s): M25.50 - Pain in unspecified joint Plan: will try flexeril prn muscle spasms (5) Elevated liver enzymes: Code(s): R74.8 - Abnormal levels of other serum enzymes Plan: recheck labs Medications: New cyclobenzaprine 10 mg PO BID 30 days PRN 60 tabs 0RF muscle spasm Changed From hydroxyzine HCl 25 mg PO BID PRN 14 tabs 0RF anxiety F41.9 - Anxiety disorder, unspecified To hydroxyzine HCl 25 mg PO DAILY 90 days PRN 90 tabs 3RF anxiety F41.9 - Anxiety disorder, unspecified Coding Level of Care Code Est Pt Level 4 (48292) Complex EM visit Add On G2211 Diagnoses Alcohol abuse F10.10 Crohn's disease without complication, unspecified gastrointestinal tract location K50.90 Gastrointestinal tract location: unspecified location Digestive disease complication type: without complication residential (current) use of immunosuppressive biologic Z79.620 Polyarthralgia M25.50 Elevated liver enzymes R74.8
[2024-01-14 14:55] VITALS: BP 120/70; PULSE 102; RESP 16; TEMP 37; O2SAT 96; BMI 40.8
== END 2024-01-14 15:47 | disposition home or self-care (01) ==
PROVIDERS: PCP Physician Assistant; Visit Provider Physician Assistant
DX: F10.10 Alcohol abuse, uncomplicated (principal); K50.90 Crohn's disease, unspecified, without complications; Z79.620 Long term (current) use of immunosuppressive biologic; M25.50 Pain in unspecified joint; R74.8 Abnormal levels of other serum enzymes
CPT/HCPCS: 99214

== ENCOUNTER 2024-01-22 13:56 | Outpatient (REF) | payer BC, SELFPAY ==
[2024-01-22 14:17] LABS: MANUAL DIFF FLAG NO
[2024-01-22 15:03] LABS: Basophils Absolute Auto 0.1 X10*3/uL (0.0-0.2); Basophils Percent Auto 0.7 % (0-2); Eosinophils Absolute Auto 0.2 X10*3/uL (0.0-0.4); Eosinophils Percent Auto 1.4 % (0-4); Hematocrit 43.2 % (37.0-47.0); Hemoglobin 14.9 g/dl (12.0-16.0); Imm Gran Abs Auto 0.03 X10*3/uL (0.00-0.03); Imm Gran Pct Auto 0.2 % (0.0-0.4); Lymphocytes Absolute Auto 3.5 X10*3/uL (1.2-4.9); Lymphocytes Percent Auto 28.9 % (20-40); Mean Corpuscular HGB Conc 34.5 g/dl (31.0-35.0); Mean Corpuscular Hemoglobin 31.9 pg (27.0-33.0); Mean Corpuscular Volume 92.5 fL (80.0-98.0); Mean Platelet Volume 9.9 fL (9.4-12.3); Monocytes Absolute Auto 0.8 X10*3/uL (0.1-1.2); Monocytes Percent Auto 6.6 % (2-11); Neutrophils Absolute Auto 7.5 x10*3/uL (2.0-8.3); Neutrophils Percent Auto 62.2 % (45-73); Platelet Count 495 X10*3/uL (160-400); Red Blood Count 4.67 X10*6/uL (4.20-5.50); Red Cell Distribution Width 11.2 % (11.0-16.0); White Blood Count 12.1 X10*3/uL (4.8-10.8)
[2024-01-22 15:51] LABS: TSH reflex Free T4 5.03 uIU/mL (0.32-4.0)
[2024-01-22 15:55] LABS: Alanine Aminotransferase 70 U/L (0-31); Alkaline Phosphatase 112 U/L (39-117); Anion Gap 14 (12-20); Aspartate Amino Transferase 43 U/L (5-31); Bilirubin Direct 0.2 mg/dL (0.0-0.5); Bilirubin Total 0.5 mg/dL (0.0-1.0); Blood Urea Nitrogen 13 mg/dL (9-16); Calcium 10.6 mg/dL (8.4-10.2); Carbon Dioxide 30 mmol/L (22-29); Chloride 98 mmol/L (96-108); Estimated Glomerular Filt Rate > 60; Glucose Random 85 mg/dL (60-115); Potassium 2.9 mmol/L (3.3-5.1); Sodium 139 mmol/L (135-145); Total Protein 9.5 g/dL (6.5-8.0)
[2024-01-22 16:58] LABS: Estimated Average Glucose 126 mg/dL
[2024-01-22 17:00] LABS: Free T4 (Free Thyroxine) 1.14 ng/dL (0.71-1.85)
[2024-01-24 13:14] LABS: Prot Elec - Albumin 4.8 g/dL (3.8-4.8); Prot Elec - Alpha1 0.3 g/dL (0.2-0.3); Prot Elec - Alpha2 0.8 g/dL (0.5-0.9); Prot Elec - Beta 1 0.6 g/dL (0.4-0.6); Prot Elec - Beta 2 0.7 g/dL (0.2-0.5); Prot Elec - Gamma 1.6 g/dL (0.8-1.7); Prot Elec - Total Protein 8.8 g/dL (6.1-8.1)
[2024-01-25 17:14] LABS: Myeloperoxidase Antibody <1.0 AI; Proteinase 3 PR3 Antibodies <1.0 AI
== END 2024-01-22 13:57 | disposition home or self-care (01) ==
LOC: HO.LAB 13:56
PROVIDERS: Absent Provider Student in an Organized Health Care Education/Training Program; PCP Physician Assistant; Visit Provider Physician Assistant
DX: R21 Rash and other nonspecific skin eruption (principal); R79.89 Other specified abnormal findings of blood chemistry; Z79.620 Long term (current) use of immunosuppressive biologic; M45.A0 Non-radiographic axial spondyloarthritis of unspecified sites in spine; R77.8 Other specified abnormalities of plasma proteins; R00.2 Palpitations; I10 Essential (primary) hypertension
CPT/HCPCS: 36415; 80048; 80076; 83036; 83520; 84165; 84439; 84443; 85025; 86021

== ENCOUNTER → 2024-01-25 13:06 | Outpatient (REF) | payer BC, SELFPAY ==
--- NOTE | 2024-01-25 13:08 | CA_ITS ---
Transthoracic Echocardiogram Patient (Last, First, Middle): Nirali You Y Gender: Female Date of : 1995 Age: 28 Procedure Date: 01/25/2024 Procedure Type: Transthoracic Echocardiogram Location: OP Height: 160.02 cm Weight: 104.33 kg BSA: 2.05 m2 Heart Rate: 91 bpm BP: 140 / 80 mmHg Sports Management Intern: Referring MD: Jenny Wilkinson PA-C Symptoms: I10 - Essential (primary) hypertension Study Quality: Adequate ECG Rhythm: Sinus Conclusions: - The left ventricular systolic function is normal. The visually estimated ejection fraction is between 55-60%. - Evidence suggests grade I (mild) diastolic dysfunction. - No obvious valvular pathology seen on this study. Findings Procedure Information Contrast agent, definity, is being given per protocol without apparent complications. Left Ventricle Normal left ventricular cavity size. The left ventricular systolic function is normal. The visually estimated ejection fraction is between 55-60%. There is no evidence of regional wall motion abnormalities. Evidence suggests grade I (mild) diastolic dysfunction. There is mild septal asymmetric hypertrophy. Right Ventricle Normal right ventricular cavity size and systolic function. Atria Both atria are normal in size. Aortic Valve There is a normal trileaflet aortic valve. There is no aortic valve stenosis. There is no aortic valve regurgitation. Mitral Valve The mitral valve appears normal. There is no mitral valve regurgitation. There is no mitral valve stenosis. Pulmonic Valve The pulmonic valve is likely normal. Tricuspid Valve There is trace tricuspid valve regurgitation. There is no evidence of pulmonary hypertension. Great Vessels The asc aorta is normal in size. Venous The inferior vena cava is normal in size and collapses greater than 50% with inspiration. Pericardium/Pleural There is no evidence of pericardial effusion. Prior Study Comparison No prior study available for comparison. Recommendations, Care & Conclusions No obvious valvular pathology seen on this study. Measurements 2D Linear Measurements IVSd: 1.02 0.6-0.9/0.6-1.0 cm LVIDd: 4.51 3.9-5.3/4.2-5.9 cm LVIDd Index: 2.20 2.4-3.2/2.2-3.1 cm/m2 LVIDs: 2.87 2.0-3.6 cm LVPWd: 1.03 0.7-1.1 cm LA Diam: 3.40 2.7-3.8/3.0-4.0 cm LAIDs Index: 1.66 1.5-2.3 cm/m2 LV Mass: 198.19 67-162/88-224 g LV Mass Index: 96.68 43-95/49-115 g/m2 LVOT Diam: 2.00 3.0+(-)1.3 cm 2D Systolic Function EF 4C: 57.00 >55% EF 2C: 64.10 >55% EF BiP: 60.80 >55% Mitral Valve MV Pk E: 0.69 MV PK A: 0.84 MV Decel Time: 100.00 E/A: 0.80 E'Lateral: 5.44 E'Medial: 6.64 E/E' Med: 10.40 E/E' Lat: 12.70 PHT: 29.00 MVA PHT: 7.59 Decel Gila: 6.93 Aortic Valve AoV Pk Tanner: 1.47 AoV Mn Tanner: 0.94 AoV VTI: 0.30 AoV Pk Grad: 9.00 Aov Mn Grad: 4.00 KLAUDIA Cont.VTI: 1.62 LVOT LVOT Pk Tanner: 0.88 LVOT Mn Tanner: 0.61 LVOT VTI: 0.15 LVOT Pk Grad: 3.00 LVOT Mn Grad: 2.00 LVOT Diam: 2.00 LVOT Area: 3.14 Diastolic Function MV Pk E: 0.69 MV Pk A: 0.84 E/A: 0.80 E'Medial: 6.64 E/E' Med: 10.40 E' Laterial: 5.44 E/E' Lat: 12.70 Right Ventricle TAPSE (mm): 25.30 TVS' Tanner: 11.20 Tricuspid Valve TR Pk Tanner: 1.61 TR Pk Grad: 10.00 Great Vessels Aorta Sinus of Valsalva: 2.40 2.0-3.5 cm Ao Asc: 2.60 2.1-3.4 cm Pulmonary Valve PV Pk Tanner: 1.11 Peak PV Grad: 5.00 Updated in Other Vendor System with Status of Final Michael Browne MD electronically signed on 01/26/2024 8:15:44 AM with status of Final
--- NOTE | 2024-01-25 13:08 | HM_ITS ---
* Total monitoring time 1 day. * Underlying rhythm is sinus. Average ventricular rate 105/Min. About 58% of the time, rate > 100/Min. * Rare supraventricular and ventricular ectopy. * No significant pauses or AV blocks. * No patient markers. * Diary not submitted. MTDD
== END ==
LOC: HO.CARD 13:06
PROVIDERS: PCP Physician Assistant; Visit Provider Physician Assistant
DX: I10 Essential (primary) hypertension (principal); R00.2 Palpitations
CPT/HCPCS: 93225; 93306; Q9957

== ENCOUNTER → 2024-01-25 13:08 | Outpatient (BNV) | payer BC, SELFPAY | PROVIDERS: PCP Physician Assistant; Visit Provider Internal Medicine | DX: I47.10 Supraventricular tachycardia, unspecified (principal) | CPT/HCPCS: 93227; 93306 ==

== ENCOUNTER 2024-01-27 10:00 | Outpatient (REF) | payer BC, SELFPAY ==
[2024-02-01 15:19] LABS: PEU-Random Urine Creatinine 116
[2024-02-01 15:20] LABS: PEU-Random Urine A1 Globulin 0%; PEU-Random Urine A2 Globulin 0%; PEU-Random Urine Albumin 100%; PEU-Random Urine Beta Globulin 0%; PEU-Random Urine Protein 5
[2024-02-01 15:21] LABS: PEU-Random Ur. Gamma Globulin 0%
[2024-02-01 15:28] LABS: PEU-Protein Creat Ratio Rand 0.043; PEU-Rand. Prot/Creat Ratio 43
== END 2024-01-27 10:01 | disposition home or self-care (01) ==
LOC: HO.LNP 10:00
PROVIDERS: Visit Provider Physician Assistant
DX: M45.A0 Non-radiographic axial spondyloarthritis of unspecified sites in spine (principal)
CPT/HCPCS: 82570; 84156; 84166

== ENCOUNTER 2024-01-27 13:32 | Outpatient (AMB) | payer BC, SELFPAY ==
[2024-01-27 13:50] VITALS: BP 116/68; PULSE 108; O2SAT 98; BMI 39.8
--- NOTE | 2024-01-27 13:50 | A.OFFVIS_ITS ---
Vital Signs 01/27/24 13:50 Height 5 ft 3 in Weight 224 lb 13.944 oz BMI 39.8 BP 116/68 Blood Pressure Location Lt brachial Position Sitting Pulse 108 H Pulse Source Pulse Oximeter Pulse Oximetry (%) 98 Oxygen Delivery Method Room Air Intake Visit Reasons: Crohn's colitis Intake Note: Patient last seen by Doctor Teresa Adames on 10/26/23. Presents today for Crohn's Colitis follow up and test results. Patient states she just did her urine lab specimen today. Accompanied by: Mother Allergies shellfish derived [SHELLFISH DERIVED] Allergy (Severe, Verified 01/27/24 15:20) ANGIOEDEMA Medication List - Last Reconciled 01/27/24 by Teresa Adames MD blood pressure monitor As directed ciclopirox 0.77% 1 appl topical BID clobetasol 0.05% 1 appl topical BID 2 weeks clobetasol 0.05% 1 appl topical DAILY 2 weeks cyclobenzaprine 10 mg PO BID PRN 30 days dicyclomine 10 mg PO BID PRN gabapentin 800 mg PO TID Humira(CF) Pen (adalimumab) inject one - 40 mg/0.4 mL pen every 2 weeks subcut NS hydrochlorothiazide 25 mg PO DAILY hydroxyzine HCl 25 mg PO DAILY PRN 90 days metoprolol succinate ER 12.5 mg (1/2 x 25 mg) PO DAILY norethindrone (contraceptive) 0.35 mg PO DAILY omeprazole 20 mg PO DAILY potassium chloride ER (Klor-Con M) 20 mEq PO DAILY trazodone 50 mg PO DAILY PRN HPI Comments Details: 28-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 She has been doing the Humira injections for the last 2 and half months or so. He states that the cramping of her hands has improved but her overall pain is about the same. She has cut down on drinking. She has developed skin rashes around the same time she started Humira injections. The rashes are on her neck and upper chest. Has been prescribed antifungal with steroid creams which improved the itching but the rash persists. Initial history: This is a 27-year-old female who presents for evaluation of diffuse pain. Back in 2020, patient presented to the hospital with abdominal pain, CT abdomen showed ileitis, colonoscopy with biopsy showed findings suggestive of inflammation, patient was started on mesalamine for presumed disease. She took it for a few months then self discontinued it. She has been following up with Gastroenterology and has not been started on any other medication for Crohn's. She states that recently she has been having lower mid back pain as well as bilateral leg nerve pain worse on the right. She was evaluated by Podiatry and no specific diagnosis was given. She was also evaluated by physiatry, L-spine MRI according to patient showed a bulging disc, right lower extremity EMG showed signs suggestive of lumbar radiculopathy. He was prescribed in 9 day course of steroid as a trial by physiatry which gave her significant relief in the 1st 3 days then as patient was tapering down her prednisone she had severe pain in her feet and she went to the emergency room. She has been having generalized swelling of her entire body. She gained about 30 lb over the last 3 years without any significant change in her diet or exercise. She also noticed reddish discoloration of her face. She has noticed some hyperpigmentation of her neck. She has significant difficulty moving her fingers. Her mother has history of RA. Patient stated that she had superficial blood clots she was on control in the past. She did not to be on a blood thinner. [facility] Medical History (Updated 01/27/24 @ 16:15 by Teresa Adames MD) Crohn's disease Prediabetes Screening for hypothyroidism Screening for hyperlipidemia Hypertension Surgical History History of colonoscopy History of esophagogastroduodenoscopy (EGD) Family History Father GERD (gastroesophageal reflux disease) Mother History of cancer Family history of arthritis Rheumatoid arthritis Maternal Grandfather Prostate cancer Maternal Aunt Breast cancer Other Mental health disorder Substance use disorder Social History Housing: House Alcohol intake: current Alcohol intake frequency: holidays/special occasions only Patient Tobacco Use Status: Current someday Tobacco user Tobacco use type: Cigarette Cigarettes Per Day: 3 (per week) Years Smoked: 3 e-Cigarette/Vaping Use: Former Use Second Hand Smoke Exposure: Yes service: No Current occupational status: employed 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 Current occupational exposures/hazards: No Cognitive needs: No Hearing needs: No Vision needs: No Female Reproductive History Menstrual Total pregnancies: 0 Physical Exam Vital Signs: Last Vital Signs Pulse 108 H 01/27/24 13:50 BP 116/68 01/27/24 13:50 Pulse Ox 98 01/27/24 13:50 Oxygen Delivery Method Room Air 01/27/24 13:50 BMI result Body Mass Index 18.1 Assessment & Plan Assessment & Plan (1) Non-radiographic axial spondyloarthritis: Comment: dx 10/2023 ++ASCA IgG++ASCA IgA (crohn's colitis) Humira 10/2023 Code(s): M45.A0 - Non-radiographic axial spondyloarthritis of unspecified sites in spine Category: Medical Plan: This is a 28-year-old female with non radiographic axial spa who presents for follow-up. On Humira 40 mg every other week. Has been using it for the last 2 months and half or so. She has noticed some improvement in the pain in her hands. On exam there is significantly less tender joints. Continue Humira 40 mg every other week Check inflammatory markers today Labs before next visit in 3 months (2) intermediate (current) use of immunosuppressive biologic: Code(s): Z79.620 - artist's representative (current) use of immunosuppressive biologic Category: Medical Plan: Discussed risks and benefits of adalimumab. Patient aware. Plan I spent 24 minutes reviewing patient's chart, evaluating patient, ordering diagnostic workup, counseling patient and documenting in the chart Orders: Orders Complete Blood Count Auto Diff 3 Months M45.A0 - Non-radiographic axial spondyloarthritis of unspecified sites in spine, Z79.620 - artist's representative (current) use of immunosuppressive biologic Erythrocyte Sedimentation Rate 3 Months M45.A0 - Non-radiographic axial spondyloarthritis of unspecified sites in spine, Z79.620 - artist's representative (current) use of immunosuppressive biologic Comprehensive Met. Panel 3 Months M45.A0 - Non-radiographic axial spondyloarthritis of unspecified sites in spine, Z79.620 - artist's representative (current) use of immunosuppressive biologic C Reactive Protein 3 Months M45.A0 - Non-radiographic axial spondyloarthritis of unspecified sites in spine, Z79.620 - intermediate (current) use of immunosuppressive biologic Coding Level of Care Code Est Pt Level 4 (35591) Diagnoses Non-radiographic axial spondyloarthritis M45.A0 artist's representative (current) use of immunosuppressive biologic Z79.620
== END 2024-01-27 14:35 | disposition home or self-care (01) ==
PROVIDERS: Visit Provider Student in an Organized Health Care Education/Training Program
DX: M45.A0 Non-radiographic axial spondyloarthritis of unspecified sites in spine (principal); Z79.620 Long term (current) use of immunosuppressive biologic
CPT/HCPCS: 99214

== ENCOUNTER → 2024-01-27 13:32 | Outpatient (BNVA) | payer BC, SELFPAY | PROVIDERS: Visit Provider Student in an Organized Health Care Education/Training Program ==

== ENCOUNTER 2024-01-27 15:24 | Outpatient (AMB) | payer BC, SELFPAY ==
--- NOTE | 2024-01-27 12:44 | MHC.PC.OV ---
Intake Visit Reasons: Follow up potassium Intake Note: Follow up on potassium. Patient has been on Potassium 20 meq twice a day since Thursday. 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 Allergies shellfish derived [SHELLFISH DERIVED] Allergy (Severe, Verified 01/27/24 15:20) ANGIOEDEMA Medication List - Last Reconciled 01/27/24 by Jenny Wilkinson PA-C blood pressure monitor As directed ciclopirox 0.77% 1 appl topical BID clobetasol 0.05% 1 appl topical BID 2 weeks clobetasol 0.05% 1 appl topical DAILY 2 weeks cyclobenzaprine 10 mg PO BID PRN 30 days dicyclomine 10 mg PO BID PRN gabapentin 800 mg PO TID Humira(CF) Pen (adalimumab) inject one - 40 mg/0.4 mL pen every 2 weeks subcut NS hydrochlorothiazide 25 mg PO DAILY hydroxyzine HCl 25 mg PO DAILY PRN 90 days metoprolol succinate ER 12.5 mg (1/2 x 25 mg) PO DAILY norethindrone (contraceptive) 0.35 mg PO DAILY omeprazole 20 mg PO DAILY potassium chloride ER (Klor-Con M) 40 mEq PO DAILY trazodone 50 mg PO DAILY PRN Tobacco use date assessed: 12/24/23 Dental Screening Dental Screen Date: 01/14/24 HPI Follow up potassium HPI Details Patient is a 28-year-old female who presents today for a follow up on labs. She recently quit drinking and was complaining of foot cramping. She had labs which showed a significantly low potassium of 2.9 in which she was then started on potassium supplementation. She was supposed to repeat the labs prior to today's appointment. She states she will do this tomorrow. She is taking potassium 20 meq BID. She is still on hctz. She states her bps at home have been perfect with the current plan and she does not want to stop this medication if she can help it. Her TSH was also elevated. She states she does feel tired a lot despite being sober and has a hard time with weight loss but has lost a few lbs since quitting drinking. She reports 1 month sober yesterday. [facility] Medical History (Updated 01/27/24 @ 15:59 by Jenny Wilkinson PA-C) Crohn's disease Prediabetes Screening for hypothyroidism Screening for hyperlipidemia Hypertension Surgical History History of colonoscopy History of esophagogastroduodenoscopy (EGD) Family History Father GERD (gastroesophageal reflux disease) Mother History of cancer Family history of arthritis Rheumatoid arthritis Maternal Grandfather Prostate cancer Maternal Aunt Breast cancer Other Mental health disorder Substance use disorder Social History Housing: House Alcohol intake: current Alcohol intake frequency: holidays/special occasions only Patient Tobacco Use Status: Current someday Tobacco user Tobacco use type: Cigarette Cigarettes Per Day: 3 (per week) Years Smoked: 3 e-Cigarette/Vaping Use: Former Use Second Hand Smoke Exposure: Yes service: No Current occupational status: employed 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 Torres Gabriel, Kiana Mena, Willi Ponce and colleagues, with an educational gordon from [employer]. Physical exam (Primary Care) Tobacco/Smoking Status: Tobacco use Status Tobacco use date assessed 12/24/23 01/27/24 12:44 Patient Tobacco Use Status Current someday Tobacco 01/27/24 12:44 Tobacco use type Cigarette 01/27/24 12:44 e-Cigarette/Vaping Use Former Use 01/27/24 12:44 Thrive Assessment: Date of Thrive Assessment Date Thrive assessed 12/24/23 01/27/24 12:44 Telehealth Telehealth Telehealth Platform: Telephone Location of provider rendering services: practice address Location of patient: address on file Patient Identification confirmed using: Name, : Yes Telehealth method: voice only Patient verbally consented to treatment: Yes Patient verbally consented to billing insurance company: Yes Patient informed of any privacy concerns related to visit: Yes Minutes spent on Phone/Video with Pt.: 18 Results Reviewed Results Reviewed: Laboratory Tests 08/20/23 01/22/24 14:57 14:15 Sodium 139 Potassium 2.9 L* Chloride 98 Carbon Dioxide 30 H Anion Gap 14 BUN 13 Creatinine 0.93 Estimated GFR > 60 Random Glucose 85 Estimat Average Glucose 126 Hemoglobin A1c % 6.0 Calcium 10.6 H D Total Bilirubin 0.5 Direct Bilirubin 0.2 AST 276 H 43 H ALT 156 H 70 H Alkaline Phosphatase 124 H 112 Tryptase 3.3 TSH 5.03 H Free T4 1.14 Assessment and Plan Assessment & Plan (1) Elevated liver enzymes: Code(s): R74.8 - Abnormal levels of other serum enzymes Plan: Improved. She will follow with GI. (2) Hypokalemia: Code(s): E87.6 - Hypokalemia Plan: Continue current regimen. Check labs tomorrow morning. We will follow up pending test results. (3) Hypothyroid: Code(s): E03.9 - Hypothyroidism, unspecified Qualifiers: Hypothyroidism type: unspecified Qualified Code(s): E03.9 - Hypothyroidism, unspecified Plan: We will start levothyroxine. Discussed risks and benefits and adverse effects. We will check labs in 6-8 weeks. Sooner if needed. Orders: Orders Magnesium Today E87.6 - Hypokalemia Thyroglobulin Antibodies 6 Weeks E03.9 - Hypothyroidism, unspecified Thyroid Peroxidase Antibodies 6 Weeks E03.9 - Hypothyroidism, unspecified, E87.6 - Hypokalemia Thyroid Stimulating Hormone 6 Weeks E03.9 - Hypothyroidism, unspecified Medications: New levothyroxine 25 mcg PO DAILY 30 tabs 3RF Changed From potassium chloride ER (Klor-Con M) 40 mEq PO DAILY To potassium chloride ER (Klor-Con M) 20 mEq PO BID 30 days 60 tabs 2RF Coding Level of Care Code Tele Est Pt Level 3 (91570) Diagnoses Elevated liver enzymes R74.8 Hypokalemia E87.6 Hypothyroidism, unspecified type E03.9 Hypothyroidism type: unspecified Time Spent (min) 18
== END 2024-01-27 17:05 ==
LOC: HO.HMGFM 15:24
PROVIDERS: Visit Provider Physician Assistant
DX: R74.8 Abnormal levels of other serum enzymes (principal); E87.6 Hypokalemia; E03.9 Hypothyroidism, unspecified
CPT/HCPCS: 99442

== ENCOUNTER 2024-01-28 15:42 | Outpatient (REF) | payer BC, SELFPAY ==
[2024-01-28 17:21] LABS: MANUAL DIFF FLAG NO
[2024-01-28 17:26] LABS: Basophils Absolute Auto 0.1 X10*3/uL (0.0-0.2); Basophils Percent Auto 0.6 % (0-2); Eosinophils Absolute Auto 0.2 X10*3/uL (0.0-0.4); Eosinophils Percent Auto 1.7 % (0-4); Hematocrit 42.6 % (37.0-47.0); Hemoglobin 14.5 g/dl (12.0-16.0); Imm Gran Abs Auto 0.03 X10*3/uL (0.00-0.03); Imm Gran Pct Auto 0.3 % (0.0-0.4); Lymphocytes Absolute Auto 2.8 X10*3/uL (1.2-4.9); Lymphocytes Percent Auto 29.6 % (20-40); Mean Corpuscular Hemoglobin 31.6 pg (27.0-33.0); Mean Corpuscular Volume 92.8 fL (80.0-98.0); Mean Platelet Volume 9.9 fL (9.4-12.3); Monocytes Absolute Auto 0.7 X10*3/uL (0.1-1.2); Monocytes Percent Auto 7.1 % (2-11); Neutrophils Absolute Auto 5.6 x10*3/uL (2.0-8.3); Neutrophils Percent Auto 60.7 % (45-73); Platelet Count 419 X10*3/uL (160-400); Red Blood Count 4.59 X10*6/uL (4.20-5.50); Red Cell Distribution Width 11.1 % (11.0-16.0); White Blood Count 9.3 X10*3/uL (4.8-10.8)
[2024-01-28 17:51] LABS: Anion Gap 15 (12-20); Blood Urea Nitrogen 14 mg/dL (9-16); C Reactive Protein 1.38 mg/dL (< or = 0.50); Calcium 10.5 mg/dL (8.4-10.2); Carbon Dioxide 28 mmol/L (22-29); Chloride 99 mmol/L (96-108); Estimated Glomerular Filt Rate > 60; Glucose Random 81 mg/dL (60-115); Magnesium 1.7 mg/dL (1.6-2.6); Potassium 3.3 mmol/L (3.3-5.1); Sodium 139 mmol/L (135-145)
[2024-01-28 18:10] LABS: Free T4 (Free Thyroxine) 1.01 ng/dL (0.71-1.85)
[2024-01-28 18:34] LABS: Erythrocyte Sedimentation Rate 44 MM/HR (0-20)
[2024-01-29 16:47] LABS: Triiodothyronine T3 Free 4.1 pg/mL (2.3-4.2)
[2024-01-29 17:44] LABS: Thyroglobulin Antibodies <1 IU/mL (< or = 1); Thyroid Peroxidase Antibodies 1 IU/mL (<9)
== END 2024-01-28 15:43 | disposition home or self-care (01) ==
LOC: HO.WFDLDS 15:42
PROVIDERS: Referring Provider Student in an Organized Health Care Education/Training Program; Visit Provider Physician Assistant
DX: E87.6 Hypokalemia (principal); M45.A0 Non-radiographic axial spondyloarthritis of unspecified sites in spine; E07.9 Disorder of thyroid, unspecified
CPT/HCPCS: 36415; 80048; 83735; 84439; 84443; 84481; 85025; 85652; 86140; 86376; 86800

== ENCOUNTER 2024-02-17 14:53 | Outpatient (AMB) | payer BC, SELFPAY ==
--- NOTE | 2024-02-17 14:56 | A.OFFPC_ITS ---
Vital Signs 02/17/24 15:09 Height 5 ft 3 in Weight 217 lb BMI 38.4 BP 100/80 Blood Pressure Location Rt brachial Position Sitting Respiration 14 Pulse 114 H Pulse Source Pulse Oximeter Pulse Oximetry (%) 94 Oxygen Delivery Method Room Air Intake Visit Reasons: recheck meds Intake Note: Medication follow up. Ran out of potassium for a couple weeks, unsure if she should continue. Needs FMLA filled out. Allergies shellfish derived [SHELLFISH DERIVED] Allergy (Severe, Verified 01/27/24 15:20) ANGIOEDEMA Medication List - Last Reconciled 02/17/24 by Jenny Wilkinson PA-C blood pressure monitor As directed ciclopirox 0.77% 1 appl topical BID clobetasol 0.05% 1 appl topical DAILY 2 weeks clobetasol 0.05% 1 appl topical BID 2 weeks cyclobenzaprine 10 mg PO BID PRN 30 days dicyclomine 10 mg PO BID PRN gabapentin 800 mg PO TID Humira(CF) Pen (adalimumab) inject one - 40 mg/0.4 mL pen every 2 weeks subcut NS hydrochlorothiazide 25 mg PO DAILY hydroxyzine HCl 25 mg PO DAILY PRN 90 days levothyroxine 25 mcg PO DAILY metoprolol succinate ER 12.5 mg (1/2 x 25 mg) PO DAILY norethindrone (contraceptive) 0.35 mg PO DAILY omeprazole 20 mg PO DAILY potassium chloride ER (Klor-Con M) 20 mEq PO BID 90 days trazodone 50 mg PO DAILY PRN Tobacco use date assessed: 12/24/23 Dental Screening Dental Screen Date: 01/14/24 HPI recheck meds HPI Details Patient is a 28-year-old female who presents today for a follow up. Since our last visit she was started on potassium and states that she is taking it twice a day. She remains on hydrochlorothiazide 25 mg daily, metoprolol 12.5 mg daily for blood pressure control. Her blood pressure today in the office is 100/80. She remain sober and has quit drinking alcohol. She tells me her Crohn's disease is slightly improved with the discontinuation of alcohol but she still does have to use the bathroom frequently throughout the day. 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 She does have paperwork here today requesting that she works from home due to her Crohn's disease and chronic pain. She is following with Rheumatology in his on [facility]. States that she still in a lot of pain and following with physiatry. She states her main concern is that her feet we will intermittently cramp like a Charley horse and then get weak. She states it feels like she has no sensation in them at times. About a year ago she had a nerve conduction study at [facility] and states that it showed some peripheral neuropathy. She was drinking heavily at that time. She does have low back pain and states that physiatry told her she had a herniated disc but it was not causing her symptoms. She did see Podiatry which she felt was useless. The cramping and weakness can happen at any time. She can not identify unknown trigger. It makes driving difficult. She is on gabapentin and states that it does not always help. Trazodone has been helpful for the insomnia. She takes it as needed. [facility] Medical History (Updated 02/17/24 @ 15:30 by Jenny Wilkinson PA-C) Crohn's disease Prediabetes Screening for hypothyroidism Screening for hyperlipidemia Hypertension Surgical History History of colonoscopy History of esophagogastroduodenoscopy (EGD) Family History Father GERD (gastroesophageal reflux disease) Mother History of cancer Family history of arthritis Rheumatoid arthritis Maternal Grandfather Prostate cancer Maternal Aunt Breast cancer Other Mental health disorder Substance use disorder Social History Housing: House Alcohol intake: current Alcohol intake frequency: holidays/special occasions only Patient Tobacco Use Status: Current someday Tobacco user Tobacco use type: Cigarette Cigarettes Per Day: 3 (per week) Years Smoked: 3 e-Cigarette/Vaping Use: Former Use Second Hand Smoke Exposure: Yes service: No Current occupational status: employed 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 1. Little interest or pleasure in doing things: more than half the days 2. Feeling down, depressed, or hopeless: more than half the days 3. Trouble falling or staying asleep, or sleeping too much: nearly every day 4. Feeling tired or having little energy: nearly every day 5. Poor appetite or overeating: more than half the days 6. Feeling bad about yourself - or that you are a failure or have let yourself or your family down: more than half the days 7. Trouble concentrating on things, such as reading the newspaper or watching television: nearly every day 8. Moving or speaking so slowly that other people could have noticed. Or the opposite - being so fidgety or restless that you have been moving around a lot more than usual: more than half the days 9. Thoughts that you would be better off or of hurting yourself in some way: not at all Total score: 19 Source: Developed by Drs. Torres Gabriel, Kiana Mena, Willi Ponce and colleagues, with an educational gordon from [employer]. Thrive Questionnaire Date Thrive assessed: 12/24/23 I am a: Patient What is your living situation today?: I have a steady place to live Within the past 12 months, did the food you bought not last and you didn't have the money to get more?: Never true Within the past 12 months, did you worry whether your food would run out before you got money to buy more?: Never true Do you have trouble paying for medicines?: No Do you have trouble getting transportation to medical appointments?: No Do you have trouble paying your heating and electricity bill?: No Do you have trouble taking care of your child, family member or friend?: No Do you have trouble with day-to-day activities such as bathing, preparing meals, shopping, managing finances, etc.?: Yes Are you currently unemployed and looking for a job?: No Are you interested in more education?: Yes Please select the resources that you would like help with: None Currently or been in a relationship where the following occur: No concerns reported THRIVE Score: 0 AUDIT C Alcohol Use Questionnaire (AUDIT-C) 1. How often do you have a drink containing alcohol?: Monthly or less 2. How many drinks containing alcohol do you have on a typical day when you are drinking?: 1 or 2 3. How often do you have six or more drinks on one occasion?: Never Total Score: 1 BLAYNE-7 AMB Questionnaire BLAYNE-7 Date BLAYNE - 7 assessed: 12/24/23 Feeling nervous, anxious, or on edge: 3 = Nearly every day Not being able to stop or control worryin = Nearly every day Worrying too much about different things: 3 = Nearly every day Trouble relaxin = Nearly every day Being so restless that it is hard to sit still: 3 = Nearly every day Becoming easily annoyed or irritable: 3 = Nearly every day Feeling afraid as if something awful might happen: 3 = Nearly every day Total BLAYNE-7 score (0-4 normal; 5-9 mild; 10-14 moderate; 15-21 severe): 21 Source: Developed by Drs. Torres Gabriel, Kiana Mena, Willi Ponce and colleagues, with an educational ogrdon from [employer]. Physical exam (Primary Care) Vital Signs: Last Vital Signs Pulse 114 H 02/17/24 15:09 Resp 14 02/17/24 15:09 BP 100/80 02/17/24 15:09 Pulse Ox 94 02/17/24 15:09 Oxygen Delivery Method Room Air 02/17/24 15:09 BMI result Body Mass Index 38.4 Tobacco/Smoking Status: Tobacco use Status Tobacco use date assessed 12/24/23 02/17/24 14:58 Patient Tobacco Use Status Current someday Tobacco 02/17/24 14:58 Tobacco use type Cigarette 02/17/24 14:58 e-Cigarette/Vaping Use Former Use 02/17/24 14:58 PHQ-9: PHQ-9 Score PHQ-9: Total score 19 02/17/24 14:58 Thrive Assessment: Date of Thrive Assessment Date Thrive assessed 12/24/23 02/17/24 14:58 Currently or been in a relationship where the following occur: No concerns reported Const Orientation/consciousness: patient oriented x3 HENMT Ears: hearing grossly normal bilaterally Neck Thyroid: Thyroid normal Lymphatic: no lymphadenopathy noted Resp Auscultation: clear to auscultation bilaterally Cardio Rate: regular rate Rhythm: regular rhythm Heart sounds: S1 normal heart sound present and S2 normal heart sound present GI Inspection: Yes normal to inspection Palpation (GI): Soft to palpation and Other GI palpation findings present (nontender, no cva tenderness) Auscultation: normoactive bowel sounds Rectal Exam - Female: deferred Skin General skin exam: no rashes or lesions noted Neuro General: patient oriented x3, gait normal and no focal motor deficits Coding Level of Care Code Est Pt Level 4 (33055) Complex EM visit Add On G2211 Diagnoses Hypothyroidism, unspecified type E03.9 Hypothyroidism type: unspecified Elevated liver enzymes R74.8 Crohn's disease without complication, unspecified gastrointestinal tract location K50.90 Gastrointestinal tract location: unspecified location Digestive disease complication type: without complication Hypokalemia E87.6 Hypertension, unspecified type I10 Hypertension type: unspecified Peripheral neuropathy G62.9 Assessment & Plan Assessment & Plan (1) Hypothyroid: Code(s): E03.9 - Hypothyroidism, unspecified Category: Medical Qualifiers: Hypothyroidism type: unspecified Qualified Code(s): E03.9 - Hypothyroidism, unspecified Plan: Currently on levothyroxine 25 mcg. Continue current regimen. We will recheck TSH prior to her next appointment (2) Elevated liver enzymes: Code(s): R74.8 - Abnormal levels of other serum enzymes Category: Medical Plan: Congratulated on sobriety. We will monitor (3) Crohn's disease: Code(s): K50.90 - Crohn's disease, unspecified, without complications Category: Medical Qualifiers: Gastrointestinal tract location: unspecified location Digestive disease complication type: without complication Qualified Code(s): K50.90 - Crohn's disease, unspecified, without complications Plan: Stable. . (4) Hypokalemia: Code(s): E87.6 - Hypokalemia Category: Medical Plan: Continuing on potassium. We will recheck labs. (5) Hypertension: Code(s): I10 - Essential (primary) hypertension Category: Medical Qualifiers: Hypertension type: unspecified Qualified Code(s): I10 - Essential (primary) hypertension Plan: WNL. Continue current regimen. (6) Peripheral neuropathy: Code(s): G62.9 - Polyneuropathy, unspecified Category: Medical Plan: EMG ordered. Orders: Orders Basic Metabolic Panel Today E03.9 - Hypothyroidism, unspecified, G62.9 - Polyneuropathy, unspecified, K50.90 - Crohn's disease, unspecified, without complications, R74.8 - Abnormal levels of other serum enzymes TSH reflex Free T4 Today E03.9 - Hypothyroidism, unspecified, G62.9 - Polyneuropathy, unspecified, K50.90 - Crohn's disease, unspecified, without complications, R74.8 - Abnormal levels of other serum enzymes Liver Panel Today E03.9 - Hypothyroidism, unspecified, G62.9 - Polyneuropathy, unspecified, K50.90 - Crohn's disease, unspecified, without complications, R74.8 - Abnormal levels of other serum enzymes NE electromyogram (EMG) Today G62.9 - Polyneuropathy, unspecified Medications: Changed From potassium chloride ER (Klor-Con M) 20 mEq PO BID 30 days 60 tabs 2RF To potassium chloride ER (Klor-Con M) 20 mEq PO BID 90 days 180 tabs 2RF Refilled clobetasol 0.05% 1 appl topical BID 2 weeks 60 grams 0RF
[2024-02-17 15:09] VITALS: BP 100/80; PULSE 114; RESP 14; O2SAT 94; BMI 38.4
== END 2024-02-17 15:56 | disposition home or self-care (01) ==
PROVIDERS: PCP Physician Assistant; Visit Provider Physician Assistant
DX: E03.9 Hypothyroidism, unspecified (principal); R74.8 Abnormal levels of other serum enzymes; K50.90 Crohn's disease, unspecified, without complications; E87.6 Hypokalemia; I10 Essential (primary) hypertension; G62.9 Polyneuropathy, unspecified

== ENCOUNTER → 2024-02-17 14:53 | Outpatient (BNVA) | payer BC, SELFPAY | PROVIDERS: Visit Provider Physician Assistant ==

== ENCOUNTER 2024-03-30 15:15 | Outpatient (AMB) | payer BC, SELFPAY ==
--- NOTE | 2024-03-30 15:23 | A.OFFPC_ITS ---
Vital Signs 03/30/24 15:27 Height 5 ft 3 in Weight 211 lb BMI 37.4 BP 112/78 Blood Pressure Location Lt brachial Position Sitting Pulse 125 H Pulse Source Pulse Oximeter Pulse Oximetry (%) 98 Oxygen Delivery Method Room Air Intake Visit Reasons: labs and bp Intake Note: Follow up. Having EMG of right left foot in May. Has short term disability until 05/11/24. Is requesting PMFMLA to fill out for her and for job security. Foundation Relations Director Required: No Allergies shellfish derived [SHELLFISH DERIVED] Allergy (Severe, Verified 03/30/24 15:24) ANGIOEDEMA Medication List - Last Reconciled 03/30/24 by Jenny Wilkinson PA-C blood pressure monitor As directed ciclopirox 0.77% 1 appl topical BID clobetasol 0.05% 1 appl topical DAILY 2 weeks clobetasol 0.05% 1 appl topical BID 2 weeks cyclobenzaprine 10 mg PO BID PRN 30 days dicyclomine 10 mg PO BID PRN gabapentin 800 mg PO TID Humira(CF) Pen (adalimumab) inject one - 40 mg/0.4 mL pen every 2 weeks subcut NS hydrochlorothiazide 25 mg PO DAILY hydroxyzine HCl 25 mg PO DAILY PRN 90 days levothyroxine 25 mcg PO DAILY metoprolol succinate ER 12.5 mg (1/2 x 25 mg) PO DAILY norethindrone (contraceptive) 0.35 mg PO DAILY omeprazole 20 mg PO DAILY potassium chloride ER (Klor-Con M) 20 mEq PO BID 90 days trazodone 50 mg PO DAILY PRN Tobacco use date assessed: 12/24/23 Dental Screening Dental Screen Date: 01/14/24 HPI labs and bp HPI Details Patient is a 28-year-old female who presents today for a follow up. CV: Since our last visit she was started on potassium and states that she is taking it twice a day. She remains on hydrochlorothiazide 25 mg daily, metoprolol 12.5 mg daily for blood pressure control. Her blood pressure today in the office is 112/78. Endo: Her last TSH was elevated and she was started on levothyroxine 25 mcg. States that she has not yet had this rechecked. GI: She remain sober and has quit drinking alcohol. She tells me her Crohn's disease is slightly improved with the discontinuation of alcohol but she still does have to use the bathroom frequently throughout the day. 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 She does have paperwork here today requesting that she works from home due to her Crohn's disease and chronic pain. Rheum: She is following with Rheumatology in his on [facility]. States that she still in a lot of pain and following with physiatry. Recently increased on gabapentin. Pysch: Trazodone has been helpful for the insomnia. She takes it as needed. [facility] Medical History (Updated 02/17/24 @ 15:30 by Jenny Wilkinson PA-C) Crohn's disease Prediabetes Screening for hypothyroidism Screening for hyperlipidemia Hypertension Surgical History History of colonoscopy History of esophagogastroduodenoscopy (EGD) Family History Father GERD (gastroesophageal reflux disease) Mother History of cancer Family history of arthritis Rheumatoid arthritis Maternal Grandfather Prostate cancer Maternal Aunt Breast cancer Other Mental health disorder Substance use disorder Social History Housing: House Alcohol intake: current Alcohol intake frequency: holidays/special occasions only Patient Tobacco Use Status: Current someday Tobacco user Tobacco use type: Cigarette Cigarettes Per Day: 3 (per week) Years Smoked: 3 e-Cigarette/Vaping Use: Former Use Second Hand Smoke Exposure: Yes service: No Current occupational status: employed 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 Current occupational exposures/hazards: No Cognitive needs: No Hearing needs: No Vision needs: No Questionnaire Thrive Questionnaire Date Thrive assessed: 02/17/24 I am a: Patient What is your living situation today?: I have a steady place to live Within the past 12 months, did the food you bought not last and you didn't have the money to get more?: Never true Within the past 12 months, did you worry whether your food would run out before you got money to buy more?: Never true Do you have trouble paying for medicines?: No Do you have trouble getting transportation to medical appointments?: No Do you have trouble paying your heating and electricity bill?: No Do you have trouble taking care of your child, family member or friend?: No Do you have trouble with day-to-day activities such as bathing, preparing meals, shopping, managing finances, etc.?: Yes Are you currently unemployed and looking for a job?: No Are you interested in more education?: Yes Please select the resources that you would like help with: None Currently or been in a relationship where the following occur: No concerns reported THRIVE Score: 0 BLAYNE-7 AMB Questionnaire BLAYNE-7 Date BLAYNE - 7 assessed: 12/24/23 Source: Developed by Drs. Torres Gabriel, Kiana Mena, Willi Ponce and colleagues, with an educational gordon from [employer]. Physical exam (Primary Care) Vital Signs: Last Vital Signs Pulse 125 H 03/30/24 15:27 BP 112/78 03/30/24 15:27 Pulse Ox 98 03/30/24 15:27 Oxygen Delivery Method Room Air 03/30/24 15:27 BMI result Body Mass Index 37.4 Tobacco/Smoking Status: Tobacco use Status Tobacco use date assessed 12/24/23 03/30/24 15:30 Patient Tobacco Use Status Current someday Tobacco 03/30/24 15:30 Tobacco use type Cigarette 03/30/24 15:30 e-Cigarette/Vaping Use Former Use 03/30/24 15:30 Thrive Assessment: Date of Thrive Assessment Date Thrive assessed 02/17/24 03/30/24 15:30 Currently or been in a relationship where the following occur: No concerns reported Const Orientation/consciousness: patient oriented x3 HENMT Ears: hearing grossly normal bilaterally Neck Thyroid: Thyroid normal Lymphatic: no lymphadenopathy noted Resp Auscultation: clear to auscultation bilaterally Cardio Rate: regular rate Rhythm: regular rhythm Heart sounds: S1 normal heart sound present and S2 normal heart sound present GI Inspection: Yes normal to inspection Palpation (GI): Soft to palpation and Other GI palpation findings present (nontender, no cva tenderness) Auscultation: normoactive bowel sounds Skin General skin exam: no rashes or lesions noted Neuro General: patient oriented x3, gait normal and no focal motor deficits Coding Level of Care Code Est Pt Level 4 (10987) Complex EM visit Add On G2211 Diagnoses Peripheral neuropathy G62.9 Hypothyroidism, unspecified type E03.9 Hypothyroidism type: unspecified Crohn's disease without complication, unspecified gastrointestinal tract location K50.90 Digestive disease complication type: without complication Gastrointestinal tract location: unspecified location Palpitations R00.2 Assessment & Plan Assessment & Plan (1) Peripheral neuropathy: Code(s): G62.9 - Polyneuropathy, unspecified Category: Medical Plan: Referral to neurology. Has EMG booked on the . Following with physiatry. (2) Hypothyroid: Code(s): E03.9 - Hypothyroidism, unspecified Category: Medical Qualifiers: Hypothyroidism type: unspecified Qualified Code(s): E03.9 - Hypothyroidism, unspecified Plan: We will rechecked TSH (3) Crohn's disease: Code(s): K50.90 - Crohn's disease, unspecified, without complications Category: Medical Qualifiers: Digestive disease complication type: without complication Gastrointestinal tract location: unspecified location Qualified Code(s): K50.90 - Crohn's disease, unspecified, without complications Plan: Stable. Following with GI (4) Palpitations: Code(s): R00.2 - Palpitations Category: Medical Plan: Has an appointment booked with Cardiology. On metoprolol. Orders: Referrals Neurology Referral G62.9 - Polyneuropathy, unspecified
[2024-03-30 15:27] VITALS: BP 112/78; PULSE 125; O2SAT 98; BMI 37.4
== END 2024-03-30 15:52 | disposition home or self-care (01) ==
PROVIDERS: PCP Physician Assistant; Visit Provider Physician Assistant
DX: G62.9 Polyneuropathy, unspecified (principal); E03.9 Hypothyroidism, unspecified; K50.90 Crohn's disease, unspecified, without complications; R00.2 Palpitations

== ENCOUNTER 2024-03-30 15:56 | Outpatient (REF) | payer BC, SELFPAY ==
[2024-03-30 17:45] LABS: MANUAL DIFF FLAG NO
[2024-03-30 18:06] LABS: Basophils Absolute Auto 0.1 X10*3/uL (0.0-0.2); Basophils Percent Auto 0.9 % (0-2); Eosinophils Absolute Auto 0.1 X10*3/uL (0.0-0.4); Eosinophils Percent Auto 1.6 % (0-4); Hematocrit 39.6 % (37.0-47.0); Hemoglobin 13.9 g/dl (12.0-16.0); Imm Gran Abs Auto 0.02 X10*3/uL (0.00-0.03); Imm Gran Pct Auto 0.3 % (0.0-0.4); Lymphocytes Absolute Auto 2.1 X10*3/uL (1.2-4.9); Lymphocytes Percent Auto 28.3 % (20-40); Mean Corpuscular HGB Conc 35.1 g/dl (31.0-35.0); Mean Corpuscular Volume 91.2 fL (80.0-98.0); Mean Platelet Volume 9.9 fL (9.4-12.3); Monocytes Absolute Auto 0.7 X10*3/uL (0.1-1.2); Monocytes Percent Auto 8.8 % (2-11); Neutrophils Absolute Auto 4.5 x10*3/uL (2.0-8.3); Neutrophils Percent Auto 60.1 % (45-73); Platelet Count 315 X10*3/uL (160-400); Red Blood Count 4.34 X10*6/uL (4.20-5.50); Red Cell Distribution Width 12.6 % (11.0-16.0); White Blood Count 7.4 X10*3/uL (4.8-10.8)
[2024-03-30 18:23] LABS: Alanine Aminotransferase 104 U/L (0-31); Albumin Level 4.5 g/dL (3.5-5.0); Alkaline Phosphatase 116 U/L (39-117); Anion Gap 17 (12-20); Aspartate Amino Transferase 75 U/L (5-31); Bilirubin Direct 0.4 mg/dL (0.0-0.5); Bilirubin Total 1.1 mg/dL (0.0-1.0); Blood Urea Nitrogen 19 mg/dL (9-16); C Reactive Protein 0.65 mg/dL (< or = 0.50); Calcium 10.4 mg/dL (8.4-10.2); Carbon Dioxide 28 mmol/L (22-29); Chloride 97 mmol/L (96-108); Estimated Glomerular Filt Rate > 60; Glucose Random 96 mg/dL (60-115); Magnesium 1.6 mg/dL (1.6-2.6); Parathyroid Hormone Intact 90.2 pg/mL (8.7-77.1); Phosphorus 4.1 mg/dL (2.7-4.5); Sodium 139 mmol/L (135-145); Total Protein 8.6 g/dL (6.5-8.0)
[2024-03-30 18:27] LABS: Potassium 2.8 mmol/L (3.3-5.1)
[2024-03-30 18:29] LABS: TSH reflex Free T4 2.83 uIU/mL (0.32-4.0); Thyroid Stimulating Hormone 2.83 uIU/mL (0.32-4.0)
[2024-03-30 18:41] LABS: Erythrocyte Sedimentation Rate 18 MM/HR (0-20)
[2024-04-01 01:44] LABS: Thyroglobulin Antibodies <1 IU/mL (< or = 1); Thyroid Peroxidase Antibodies 1 IU/mL (<9)
[2024-04-01 12:44] LABS: Calcium, Ionized 5.1 mg/dL (4.7-5.5)
[2024-04-04 15:08] LABS: VITAMIN D (1,25 OH) D3 69 pg/mL; Vit D (1,25-Dihydroxy) Total 69 pg/mL (18-72); Vitamin D (1,25 OH) D2 <8 pg/mL
== END 2024-03-30 15:57 | disposition home or self-care (01) ==
LOC: HO.WFDLDS 15:56
PROVIDERS: Student in an Organized Health Care Education/Training Program; Visit Provider Physician Assistant
DX: M45.A0 Non-radiographic axial spondyloarthritis of unspecified sites in spine (principal); E03.9 Hypothyroidism, unspecified; R79.89 Other specified abnormal findings of blood chemistry; E83.52 Hypercalcemia; G62.9 Polyneuropathy, unspecified; R74.8 Abnormal levels of other serum enzymes; K50.90 Crohn's disease, unspecified, without complications; E87.6 Hypokalemia; Z79.620 Long term (current) use of immunosuppressive biologic
CPT/HCPCS: 36415; 80053; 82248; 82330; 82652; 83735; 83970; 84100; 84443; 85025; 85652; 86140; 86376; 86800

== ENCOUNTER 2024-04-01 14:39 | Outpatient (REF) | payer BC, SELFPAY ==
--- NOTE | 2024-04-01 14:46 | EMG_ITS ---
Chief complaint: History of Crohn's colitis, thyroid disorder, alcohol drinking, peripheral neuropathy allegedly diagnosed with EMG done at [facility] last year. Continues to have numbness and pain in both feet. Also has a separate back pain. Comparison: Obtained NCS/EMG done by Dr. Ruffin at [facility] 06/22/2023, reported that EMG of the right L4-S1 innervated muscles consistent with mild chronic neuropathic changes which can be seen with chronic lumbar radiculopathy or a neuropathic process in the past. No signs of acute denervation. Reason for referral: Evaluate for peripheral neuropathy Referred by: Aury VALDIVIA Procedure done: Bilateral lower extremity NCS/EMG Precautions and/or limitations: None The limb temperature was monitored continuously and remained between 32-36 degrees C during the performance of the NCS. Nerve Conduction Studies Anti Sensory Summary Table ?Stim Site NR Onset (ms) Norm Onset (ms) Peak (ms) Norm Peak (ms) O-P Amp (?V) Norm O-P Amp Site1 Site2 Delta-0 (ms) Dist (cm) Tanner (m/s) Norm Tanner (m/s) Left Sural Anti Sensory (Lat Mall) Calf ? 2.9 3.6 <4.0 6.2 >5.0 Calf Lat Mall 2.9 14.0 48 Right Sural Anti Sensory (Lat Mall) Calf ? 2.9 3.8 <4.0 8.8 >5.0 Calf Lat Mall 2.9 14.0 48 Motor Summary Table ?Stim Site NR Onset (ms) Norm Onset (ms) O-P Amp (mV) Norm O-P Amp iAmp (mV) Amp (1st) (%) Site1 Site2 Delta-0 (ms) Dist (cm) Tanner (m/s) Norm Tanner (m/s) Right Peroneal Motor (Ext Dig Brev) Ankle ? 4.3 <4.0 1.7 >2.5 2.0 100.0 Ankle Ext Dig Brev 4.3 0.0 B Fib ? 11.0 1.1 1.2 64.7 B Fib Ankle 6.7 32.0 48 >40 Poplt ? 12.3 1.0 1.2 58.8 Poplt B Fib 1.3 6.0 46 >40 Left Tibial Motor (Abd Alvarado Brev) Ankle ? 4.8 <5 3.6 >2.5 4.2 100.0 Ankle Abd Alvarado Brev 4.8 0.0 Knee ? 14.8 2.3 2.4 63.9 Knee Ankle 10.0 39.0 39 >40 Right Tibial Motor (Abd Alvarado Brev) Ankle ? 4.8 <5 0.7 >2.5 0.6 100.0 Ankle Abd Alvarado Brev 4.8 0.0 Knee ? 13.8 0.3 0.4 42.9 Knee Ankle 9.0 42.0 47 >40 EMG ?Side Muscle Nerve Root Ins Act Fibs Psw Amp Dur Poly Recrt Int Pat Comment Right AbdHallucis MedPlantar S1-2 Incr 1+ 1+ Nml Nml 0 Nml Complete Right AntTibialis Dp Br Peron L4-5 Incr 1+ 1+ Nml Nml 0 Nml Complete Right PostTibialis Tibial L5, S1 Nml Nml Nml Nml Nml 0 Nml Complete Right MedGastroc Tibial S1-2 Nml Nml Nml Nml Nml 0 Nml Complete Right VastusMed Femoral L2-4 Nml Nml Nml Nml Nml 0 Nml Complete Left AbdHallucis MedPlantar S1-2 Incr 1+ 1+ Nml Nml 0 Nml Complete Left AntTibialis Dp Br Peron L4-5 Incr 1+ 1+ Nml Nml 0 Nml Complete Left PostTibialis Tibial L5, S1 Nml Nml Nml Nml Nml 0 Nml Complete Left MedGastroc Tibial S1-2 Nml Nml Nml Nml Nml 0 Nml Complete Left VastusMed Femoral L2-4 Nml Nml Nml Nml Nml 0 Nml Complete Paraspinal EMG ?Side Muscle Nerve Root Ins Act Fibs Psw Comment Right Lumbar Upper Rami Nml Nml Nml Right Lumbar Mid Rami Nml Nml Nml Right Lumbar Lower Rami Nml Nml Nml Left Lumbar Upper Rami Nml Nml Nml Left Lumbar Mid Rami Nml Nml Nml Left Lumbar Lower Rami Nml Nml Nml FINDINGS: Right peroneal nerve showed prolonged distal latencies, small amplitudes and normal conduction velocity. Right tibial nerve showed very small amplitude, almost absent. Normal conduction velocity. Left tibial nerve showed normal distal latencies, normal amplitude, slow conduction velocity. Bilateral sural nerves showed normal response. Concentric needle EMG was performed in selected muscles of the bilateral lower extremities and lumbar paraspinals . Study revealed signs of electric abnormalities as shown in the table above. Bilateral AH and TA muscle showed increased insertional activity, PSWs, fibrillations. No denervation seen on lumbar paraspinals. IMPRESSION: 1. This is an abnormal study. 2. Agree with previous EMG by Dr. Ruffin that findings are suggestive of lumbar radiculopathy, bilateral L5-S1. However, neuropathy, that is primarily affecting distal motor, is not completely ruled out. Thank you for your kind referral. Ana Lilia Burnett MD, OBDULIA Board Certified, [place] [employer] and Rehabilitation (ABPMR) Board Certified, [place] Board [employer] Electrodiagnostic [employer] (ABEM) CODIN [id number] x 2 MTDD
[2024-04-01 17:41] LABS: Alanine Aminotransferase 110 U/L (0-31); Albumin Level 4.4 g/dL (3.5-5.0); Alkaline Phosphatase 113 U/L (39-117); Anion Gap 12 (12-20); Aspartate Amino Transferase 82 U/L (5-31); Bilirubin Total 0.6 mg/dL (0.0-1.0); Blood Urea Nitrogen 10 mg/dL (9-16); Calcium 9.5 mg/dL (8.4-10.2); Carbon Dioxide 28 mmol/L (22-29); Chloride 103 mmol/L (96-108); Estimated Glomerular Filt Rate > 60; Glucose Random 98 mg/dL (60-115); Potassium 3.6 mmol/L (3.3-5.1); Sodium 139 mmol/L (135-145); Total Protein 8.2 g/dL (6.5-8.0)
== END 2024-04-01 14:40 | disposition home or self-care (01) ==
LOC: HO.NEURO 14:39
PROVIDERS: PCP Physician Assistant; Visit Provider Physician Assistant
DX: G62.9 Polyneuropathy, unspecified (principal); M45.A0 Non-radiographic axial spondyloarthritis of unspecified sites in spine; Z79.620 Long term (current) use of immunosuppressive biologic; R20.0 Anesthesia of skin
CPT/HCPCS: 36415; 80053; 95886; 95909

== ENCOUNTER → 2024-04-01 14:46 | Outpatient (BNV) | payer BC, SELFPAY | PROVIDERS: PCP Physician Assistant; Visit Provider Physical Medicine & Rehabilitation | DX: R20.0 Anesthesia of skin (principal); R20.2 Paresthesia of skin; M79.671 Pain in right foot; M79.672 Pain in left foot | CPT/HCPCS: 95886; 95909 ==

== ENCOUNTER 2024-04-01 15:50 | Outpatient (AMB) | payer BC, SELFPAY ==
--- NOTE | 2024-04-01 17:00 | A.OFFPC_ITS ---
Intake Visit Reasons: FU Hypokalemia & BP Allergies shellfish derived [SHELLFISH DERIVED] Allergy (Severe, Verified 04/01/24 17:00) ANGIOEDEMA Medication List - Last Reconciled 04/01/24 by EBONY Dang- blood pressure monitor As directed ciclopirox 0.77% 1 appl topical BID clobetasol 0.05% 1 appl topical DAILY 2 weeks clobetasol 0.05% 1 appl topical BID 2 weeks cyclobenzaprine 10 mg PO BID PRN 30 days dicyclomine 10 mg PO BID PRN gabapentin 800 mg PO TID Humira(CF) Pen (adalimumab) inject one - 40 mg/0.4 mL pen every 2 weeks subcut NS hydrochlorothiazide 25 mg PO DAILY hydroxyzine HCl 25 mg PO DAILY PRN 90 days levothyroxine 25 mcg PO DAILY metoprolol succinate ER 12.5 mg (1/2 x 25 mg) PO DAILY norethindrone (contraceptive) 0.35 mg PO DAILY omeprazole 20 mg PO DAILY potassium chloride ER (Klor-Con M) 20 mEq PO BID 90 days trazodone 50 mg PO DAILY PRN Tobacco use date assessed: 12/24/23 Dental Screening Dental Screen Date: 01/14/24 HPI HPI Comments History of Present Illness Details Telehealth fu for hypokalemia. She stopped her hydrochlorothiazide as directed. She increased her potassium as directed. Her repeat labs today show improved potassium. See results below. In regards to her blood pressure she does report that yesterday it was 146/120 with a pulse of 132 sitting down. This morning it was around the same. She did notice some mild swelling in her ankles bilaterally. She is not having any chest pain or shortness of breath. She has no syncope or headache. She is taking her metoprolol 12.5 mg as directed. She only has 2 tablets left and we will need a refill on this. Plan Discontinue hydrochlorothiazide and potassium supplement. Start spironolactone 25 mg p.o. b.i.d.. Increase metoprolol from 12.5 mg to 25 mg p.o. daily. Advised to monitor heart rate and blood pressure daily and keep a log. I would like to repeat her labs in 2 weeks' time and schedule a follow up with her primary care provider in person in 2 weeks for blood pressure recheck on her new medications. She has been educated about reasons to seek care in the emergency room and reasons to follow up sooner. This note is constructed using voice recognition software. While every effort has been made to ensure accuracy in arc furnace operator, still errors may have been included Sometimes, these errors may affect the content or meaning of the given sentence . Total time spent caring for the patient today was 25 minutes. This includes time spent before the visit reviewing the chart, time spent during the visit, and time spent after the visit on documentation [facility] Medical History (Updated 03/31/24 @ 13:43 by Jenny Wilkinson PA-C) Crohn's disease Prediabetes Screening for hypothyroidism Screening for hyperlipidemia Hypertension Surgical History History of colonoscopy History of esophagogastroduodenoscopy (EGD) Family History Father GERD (gastroesophageal reflux disease) Mother History of cancer Family history of arthritis Rheumatoid arthritis Maternal Grandfather Prostate cancer Maternal Aunt Breast cancer Other Mental health disorder Substance use disorder Social History Housing: House Alcohol intake: current Alcohol intake frequency: holidays/special occasions only Patient Tobacco Use Status: Current someday Tobacco user Tobacco use type: Cigarette Cigarettes Per Day: 3 (per week) Years Smoked: 3 e-Cigarette/Vaping Use: Former Use Second Hand Smoke Exposure: Yes service: No Current occupational status: employed 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 Current occupational exposures/hazards: No Cognitive needs: No Hearing needs: No Vision needs: No Questionnaire Thrive Questionnaire Date Thrive assessed: 02/17/24 I am a: Patient What is your living situation today?: I have a steady place to live Within the past 12 months, did the food you bought not last and you didn't have the money to get more?: Never true Within the past 12 months, did you worry whether your food would run out before you got money to buy more?: Never true Do you have trouble paying for medicines?: No Do you have trouble getting transportation to medical appointments?: No Do you have trouble paying your heating and electricity bill?: No Do you have trouble taking care of your child, family member or friend?: No Do you have trouble with day-to-day activities such as bathing, preparing meals, shopping, managing finances, etc.?: Yes Are you currently unemployed and looking for a job?: No Are you interested in more education?: Yes Please select the resources that you would like help with: None Currently or been in a relationship where the following occur: No concerns reported THRIVE Score: 0 BLAYNE-7 AMB Questionnaire BLAYNE-7 Date BLAYNE - 7 assessed: 12/24/23 Source: Developed by Drs. Torres Gabriel, Kiana Mena, Willi Ponce and colleagues, with an educational gordon from [employer] Physical exam (Primary Care) Tobacco/Smoking Status: Tobacco use Status Tobacco use date assessed 12/24/23 04/01/24 17:00 Patient Tobacco Use Status Current someday Tobacco 04/01/24 17:00 Tobacco use type Cigarette 04/01/24 17:00 e-Cigarette/Vaping Use Former Use 04/01/24 17:00 Thrive Assessment: Date of Thrive Assessment Date Thrive assessed 02/17/24 04/01/24 17:00 Currently or been in a relationship where the following occur: No concerns reported Telehealth Telehealth Telehealth Platform: [facility] Location of provider rendering services: practice address Location of patient: address on file Patient Identification confirmed using: Name, : Yes Telehealth method: voice only Patient verbally consented to treatment: Yes Patient verbally consented to billing insurance company: Yes Patient informed of any privacy concerns related to visit: Yes Minutes spent on Phone/Video with Pt.: 15 Results Reviewed Results Reviewed: RUN: 04/01/24 [id number] [address] 1 [facility] [address] [place] [id number] Rn Imcu: Christiano Conde M.D. 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- ORDERED: CMP Test Result Flag Reference Sodium 139 135-145 mmol/L Potassium 3.6 # 3.3-5.1 mmol/L CL 103 96-108 mmol/L CO2 28 22-29 mmol/L Gap 12 12-20 BUN 10 9-16 mg/dL Creat 0.83 0.5-1.4 mg/dL eGFR > 60 Chronic Kidney Disease: Estimated GFR < 60 mL/min/1.73m2 Severe Kidney Disease: Estimated GFR < 15 mL/min/1.73m2 Glucose, Random 98 60-115 mg/dL CA 9.5 # 8.4-10.2 mg/dL Total Bili 0.6 0.0-1.0 mg/dL AST (GOT) 82 H 5-31 U/L ALT (GPT) 110 H 0-31 U/L Protein, Total 8.2 H 6.5-8.0 g/dL Alb 4.4 3.5-5.0 g/dL Alk Phos 113 39-117 U/L END OF REPORT Coding Level of Care Code Tele Est Pt Level 3 (29980) Complex EM visit Add On G2211 Diagnoses Hypokalemia E87.6 Hypertension, unspecified type I10 Hypertension type: unspecified Tachycardia R00.0 Assessment & Plan Assessment & Plan (1) Hypokalemia: Code(s): E87.6 - Hypokalemia Category: Medical Plan: . (2) Hypertension: Code(s): I10 - Essential (primary) hypertension Category: Medical Qualifiers: Hypertension type: unspecified Qualified Code(s): I10 - Essential (primary) hypertension Plan: . (3) Tachycardia: Code(s): R00.0 - Tachycardia, unspecified Plan: . Plan , Orders: Orders Comprehensive Met. Panel 2 Weeks E87.6 - Hypokalemia Medications: New spironolactone 25 mg PO BID 60 tabs 0RF Changed From metoprolol succinate ER 12.5 mg (1/2 x 25 mg) PO DAILY 30 tabs 1RF I10 - Essential (primary) hypertension To metoprolol succinate ER 25 mg PO DAILY 30 tabs 1RF I10 - Essential (primary) hypertension Discontinued hydrochlorothiazide Discontinued Reason: Doctor's Order 25 mg PO DAILY 90 tabs 1RF I10 - Essential (primary) hypertension potassium chloride ER (Klor-Con M) Discontinued Reason: Doctor's Order 20 mEq PO BID 90 days 180 tabs 2RF
== END 2024-04-01 17:51 | disposition home or self-care (01) ==
LOC: HO.HMCFM 15:51
PROVIDERS: PCP Physician Assistant; Visit Provider Nurse Practitioner Family
DX: E87.6 Hypokalemia (principal); I10 Essential (primary) hypertension; R00.0 Tachycardia, unspecified

== ENCOUNTER 2024-04-18 15:23 | Outpatient (AMB) | payer BC, SELFPAY ==
[2024-04-18 15:25] VITALS: BP 140/102; PULSE 100; BMI 38.3
--- NOTE | 2024-04-18 15:25 | A.OFFVIS_ITS ---
Vital Signs 04/18/24 15:25 Height 5 ft 3 in Weight 216 lb 0.848 oz BMI 38.3 BP 140/102 H Blood Pressure Location Lt brachial Position Sitting Pulse 100 Pulse Source Pulse Oximeter Intake Visit Reasons: Hyperparathyroidism Intake Note: New patient present today for Hyperparathyroidism office visit. Upper Extremity Surgeon Required: No Accompanied by: Spouse Allergies shellfish derived [SHELLFISH DERIVED] Allergy (Severe, Verified 04/18/24 15:29) ANGIOEDEMA Medication List - Last Reconciled 04/18/24 by Korina James MD blood pressure monitor As directed ciclopirox 0.77% 1 appl topical BID clobetasol 0.05% 1 appl topical DAILY 2 weeks clobetasol 0.05% 1 appl topical BID 2 weeks cyclobenzaprine 10 mg PO BID PRN 30 days dicyclomine 10 mg PO BID PRN gabapentin 800 mg PO TID Humira(CF) Pen (adalimumab) 1 mg (0.01 mL) subcut Q2W NS hydroxyzine HCl 25 mg PO DAILY PRN 90 days levothyroxine 25 mcg PO DAILY metoprolol succinate ER 25 mg PO DAILY norethindrone (contraceptive) 0.35 mg PO DAILY omeprazole 20 mg PO DAILY spironolactone 25 mg PO BID trazodone 50 mg PO DAILY PRN HPI Comments Details: 28-year-old female here today for initial evaluation of hyperparathyroidism. Hyperparathyroidism Chart review shows borderline high calcium at least since March 2023, however patient also has a albumin levels. In January 2024 when calcium was elevated at 10.6, albumin was 5, corrected calcium would be 10.1. Ionized calcium normal at 5.1 from March 2024. Normal EGFR of greater than 60 from March 2024 with a creatinine of 0.87. No vitamin-D levels in the chart. Patient had history of Crohn's colitis on Humira injections. No history of kidney stones. No blood in urine. No fractures. Used to do cheerleading back in high school has had 2 concussions but no fractures. Abdominal ultrasound from April 2023 did not show any evidence renal calculi. No kidney stones in the family. No calcium problems in the family. Says mother has a severe calcium deficiency to the point if she doesnt take it her teeth could fall off No vitamin D supplements. Just a one a day multivitamin and takes a hair/skin/nail supplement. No milk. No yogurt. Cheese : 3-4 times a week. Gets lots of abd pain but has Crohns. Has chronic muscle aches and pains seeing rheumatology. No constipation, has daily diarrhea. HAs blood in stool. Reports brain fog. Hypertension with hypokalemia HTN: diagnosed 2018 Noted to have multiple low potassium levels at least since 2020. Most recent labs from March 2024 showed potassium level of 2.8. she was 24 years old at the time of diagnosis Started HCTZ 25 mg once daily 2020 , added on other medicine amlodipine but resulted in leg edema HCTZ stopped due to low potassium Mar 2024 around 2 weeks ago Started spironolactone 25 mg BID , metoprolol increased to 25 mg daily Current meds :spironolactone 25 mg BID , metoprolol 25 mg daily Stroke in family in 3 grandparents when older. No young stroke/TX in family Obesity Patient has BMI of 38.3 kilogram/meter squared She has lost 15 lb since summer 2023, however describes that she used to be much skin year overall about 4-5 years ago. She also showed me a picture of hers from 2019, looks much different with much thinner facies. Now complaining of easy bruising, proximal muscle weakness, chronic aches and pains, swollen fingers. Denies any change in shoe size but does have change in ring size. She is on oral contraceptive pills. Physical exam General: sitting comfortably in no acute distress, uribe facies noted, freckles noted, acne on neck HEENT: normocephalic/atraumatic, EOM intact, moist oral mucosa Neck: supple, symmetrical, no thyromegaly , does have dorsocervical and supraclavicular fat pads Cardiac: normal heart sounds Pulm: normal breath sounds B/L, no added breath sounds Abd: not distended, no tenderness, no purple striae Extremities: no edema, no signs of myxedema, does have swollen fingertips Neuro: AAO x3, Speech: normal, no facial droop, moving all 4 extremities Laboratory Tests 06/03/20 06/07/20 09/20/20 02:01 14:52 09:20 Potassium 3.2 L Creatinine Estimated GFR Calcium 8.5 Ionized Calcium Phosphorus Magnesium Albumin 4.0 3.9 4.1 PTH Intact 07/01/24/22 03/27/23 15:43 10:03 11:05 Potassium 4.4 3.0 L D 3.4 Creatinine Estimated GFR Calcium 9.3 D 9.3 9.4 Ionized Calcium Phosphorus Magnesium Albumin 4.2 4.2 4.5 PTH Intact 04/07/23 04/07/23 08/20/23 16:56 16:56 14:57 Potassium 3.3 3.1 L Creatinine Estimated GFR Calcium 10.1 D 9.8 Ionized Calcium Phosphorus Magnesium Albumin 4.4 4.4 4.3 PTH Intact 01/22/24 01/28/24 03/30/24 14:15 15:55 16:03 Potassium 2.9 L* 3.3 2.8 L* Creatinine 0.87 Estimated GFR > 60 Calcium 10.6 H D 10.5 H 10.4 H Ionized Calcium 5.1 Phosphorus 4.1 Magnesium 1.7 1.6 Albumin 5.0 4.5 PTH Intact 90.2 H 04/01/24 14:51 Potassium 3.6 D Creatinine 0.83 Estimated GFR > 60 Calcium 9.5 D Ionized Calcium Phosphorus Magnesium Albumin 4.4 PTH Intact US ABDOMEN COMPLETE Apr 2023 CLINICAL INFORMATION: Evaluate abnormal lab tests, elevated LFTs. COMPARISON: CT abdomen from 06/03/2020 TECHNIQUE: Real-time imaging of the abdominal viscera. FINDINGS: PANCREAS: Partially visualized pancreas is unremarkable. The tail is obscured by bowel gas. ABDOMINAL AORTA: The proximal, mid, and distal segments are normal in caliber. INFERIOR VENA CAVA: Visualized portions are normal. LIVER: Liver is enlarged with the right lobe of the liver measured 22 cm. The liver contour is normal. Liver demonstrates increased echogenicity due to hepatic steatosis. No focal hepatic lesion. There is no intrahepatic biliary duct dilatation seen. GALLBLADDER: Normal. The gallbladder is physiologically distended without evidence of stones, sludge, polyps, wall thickening or pericholecystic fluid. COMMON BILE DUCT: Normal in caliber measuring 0.4 cm in diameter. RIGHT KIDNEY: Normal. No hydronephrosis. No renal calculi or focal parenchymal lesions. The kidney measures 12.7 cm in maximum dimension. LEFT KIDNEY: No hydronephrosis. No renal calculi or focal parenchymal lesions. The kidney measures 13.4 cm in maximum dimension. There is septated lower pole 2.5 x 2.9 x 2.3 cm cyst, seen on previous CT scan. SPLEEN: Normal. The spleen measures 10.8 cm in maximum dimension. FREE FLUID: None. US/US abdomen complete IMPRESSION: Hepatomegaly and hepatic steatosis. Stable septated cyst in the lower pole of left kidney [facility] Medical History (Updated 03/31/24 @ 13:43 by Jenny Wilkinson PA-C) Crohn's disease Prediabetes Screening for hypothyroidism Screening for hyperlipidemia Hypertension Surgical History History of colonoscopy History of esophagogastroduodenoscopy (EGD) Family History Father GERD (gastroesophageal reflux disease) Mother History of cancer Family history of arthritis Rheumatoid arthritis Maternal Grandfather Prostate cancer Maternal Aunt Breast cancer Other Mental health disorder Substance use disorder Social History Housing: House Alcohol intake: current Alcohol intake frequency: holidays/special occasions only Patient Tobacco Use Status: Current someday Tobacco user Tobacco use type: Cigarette Cigarettes Per Day: 3 (per week) Years Smoked: 3 e-Cigarette/Vaping Use: Former Use Second Hand Smoke Exposure: Yes service: No Current occupational status: employed 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 In January 2024 when calcium was elevated at 10.6, albumin was 5, corrected calcium would be 10.1. Ionized calcium normal at 5.1 from March 2024. Normal EGFR of greater than 60 from March 2024 with a creatinine of 0.87. PTH level elevated at 90.2. No vitamin-D levels in the chart. Patient had history of Crohn's colitis on Humira injections. Hyperparathyroidism could be secondary in the setting of possible vitamin-D deficiency with a history of colitis, not on any vitamin-D supplements. We will check her vitamin-D levels. Kidney function is okay. However given borderline high normal calcium levels, could possibly have primary hyperparathyroidism/ normocalcemic hyperparathyroidism. Calcium levels were normal prior to 2022. Unlikely to be FSH. However we are checking a 24 hour urine calcium level. Plan: -ordered 24 hour urine calcium, creatinine levels -ordered vitamin-D with concurrent calcium, ionized calcium, albumin, PTH, creatinine, magnesium and phosphorus levels -will also check a serum immunofixation since she did have some abnormalities on her serum protein electrophoresis level (2) Hypertension: Code(s): I10 - Essential (primary) hypertension Category: Medical Qualifiers: Hypertension type: unspecified Qualified Code(s): I10 - Essential (primary) hypertension Plan: Was diagnosed with hypertension at the age of 24. Also noted to be hypokalemic when she was taking hydrochlorothiazide. Currently antihypertensive regimen consists of spironolactone 25 mg b.i.d., metoprolol extended release 25 mg daily. I will screen her for primary hyperaldosteronism given history of hypokalemia, young age at diagnosis of hypertension, difficult to control hypertension. She is notably on spironolactone if we can not negative screen for aldosterone, we will have to stop his spironolactone to repeat the screen. Plan: - check BMP, aldosterone concentration, plasma renin activity -have asked patient to discuss evaluating for sleep apnea with a sleep study with primary care physician -ordered renal Doppler to rule out renal artery stenosis (3) Obesity (BMI 35.0-39.9 without comorbidity): Code(s): E66.9 - Obesity, unspecified Category: Medical Plan: Patient also noted to have cushingoid facies and reporting easy bruising. She has had a normal 24 hour urine cortisol level from March 2024 along with a normal salivary cortisol level however I will repeat this testing given such convincing features in the setting of PCT with overall drastic weight gain in the past 4-5 years. She is on oral contraceptive pills so can not check 1 mg dexamethasone suppression test. She also does have increase in her ring size, with a history of Crohn's disease, acne, chronic joint and aches, also we will check for acromegaly. Plan: -check repeat 24 hour urine cortisol and salivary cortisol level -check growth hormone and IGF-1 levels (4) Hypokalemia: Code(s): E87.6 - Hypokalemia Category: Medical Plan: See above (5) Cushingoid facies: Code(s): R68.89 - Other general symptoms and signs Category: Medical Plan: See above Plan I spent 60 minutes in reviewing the record, seeing the patient and documenting in the medical record. Orders: Orders Calcium Today E21.3 - Hyperparathyroidism, unspecified Calcium, Ionized Today E21.3 - Hyperparathyroidism, unspecified Calcium, 24 Hr Ur Today E21.3 - Hyperparathyroidism, unspecified Creatinine, 24 Hr Group Today E21.3 - Hyperparathyroidism, unspecified Immunofixation Pnl, Serum Today E21.3 - Hyperparathyroidism, unspecified Adrenocorticotropic Hormone Today E21.3 - Hyperparathyroidism, unspecified, E66.9 - Obesity, unspecified, E87.6 - Hypokalemia, I10 - Essential (primary) hypertension, R68.89 - Other general symptoms and signs Cortisol Random Today E21.3 - Hyperparathyroidism, unspecified, E66.9 - Obesity, unspecified, E87.6 - Hypokalemia, I10 - Essential (primary) hypertension, R68.89 - Other general symptoms and signs Basic Metabolic Panel Today E21.3 - Hyperparathyroidism, unspecified, E66.9 - Obesity, unspecified, E87.6 - Hypokalemia, I10 - Essential (primary) hypertension, R68.89 - Other general symptoms and signs IGF Binding Protein 3 Today E21.3 - Hyperparathyroidism, unspecified, E66.9 - Obesity, unspecified, E87.6 - Hypokalemia, I10 - Essential (primary) hypertension, R68.89 - Other general symptoms and signs Cortisol, Free 24Hr Urine Today E21.3 - Hyperparathyroidism, unspecified, E66.9 - Obesity, unspecified, E87.6 - Hypokalemia, I10 - Essential (primary) hypertension, R68.89 - Other general symptoms and signs Albumin Level Today E21.3 - Hyperparathyroidism, unspecified Phosphorus Today E21.3 - Hyperparathyroidism, unspecified Vitamin D 25-OH Total Today E21.3 - Hyperparathyroidism, unspecified Magnesium Today E21.3 - Hyperparathyroidism, unspecified Renin Today E21.3 - Hyperparathyroidism, unspecified, E66.9 - Obesity, unspecified, E87.6 - Hypokalemia, I10 - Essential (primary) hypertension, R68.89 - Other general symptoms and signs Aldosterone Today E21.3 - Hyperparathyroidism, unspecified, E66.9 - Obesity, unspecified, E87.6 - Hypokalemia, I10 - Essential (primary) hypertension, R68.89 - Other general symptoms and signs Saliva Cortisol Today E21.3 - Hyperparathyroidism, unspecified, E66.9 - Obesity, unspecified, E87.6 - Hypokalemia, I10 - Essential (primary) hypertension, R68.89 - Other general symptoms and signs IGF-1 (Somatomedin C) Today E21.3 - Hyperparathyroidism, unspecified, E66.9 - Obesity, unspecified, E87.6 - Hypokalemia, I10 - Essential (primary) hypertension, R68.89 - Other general symptoms and signs Human Growth Hormone Today E21.3 - Hyperparathyroidism, unspecified, E66.9 - Obesity, unspecified, E87.6 - Hypokalemia, I10 - Essential (primary) hypertension, R68.89 - Other general symptoms and signs US renal doppler Today I10 - Essential (primary) hypertension DHEA Sulfate Today R68.89 - Other general symptoms and signs Patient Instructions: Do 24 hr urine test, same day as you hand the urine do blood work 24 hr urine collection instructions You have been asked to collect your urine for 24 hours to assess for calcium excretion. You must choose a 24 hour period of time when you will be home. The morning of the first day, DISCARD the FIRST morning void and then note the time. You will collect every single void from then on for 24 hours. For example, if you wake up at 6am and urinate, flush down that void. You will then collect every drop of urine all day and all night through 6am the following day. You will urinate one last time at 6am for the collection. The jug of urine must be kept in the refrigerator until you bring it to the lab.You have been asked to collect your urine for 24 hours to assess for calcium excretion. You must choose a 24 hour period of time when you will be home. The morning of the first day, DISCARD the FIRST morning void and then note the time. You will collect every single void from then on for 24 hours. For example, if you wake up at 6am and urinate, flush down that void. You will then collect every drop of urine all day and all night through 6am the following day. You will urinate one last time at 6am for the collection. The jug of urine must be kept in the refrigerator until you bring it to the lab. Do salivary cortisol test Salivary cortisol collection instructions Specimen requirement Collect 1 mL or more of Saliva/fully saturated swab. Do not eat for 60 minutes prior to collecting specimen. Do not consume alcohol 12 hours prior to collecting specimen. Do not brush teeth immediately before collecting specimen as gums may bleed in contaminated specimen causing a falsely elevated result. Rinse mouth thoroughly with water 10 minutes before collecting specimen. Recommend collection time is generally between 11 PM and 1 AM. Be sure to clearly label each tube collected with correct date and time. Specimen visibly contaminated with blood, cellular debris, food particles or mucus must be recollected. Specimen collection 1. ?Label the exterior tube after salivette collection device using waterproof pen with your [patient] first and last name as well as date and time collected. 2. ?Remove the stopper of the container to expose the swab. ?Do not remove the insert from the tube. ?This is necessary for processing the specimen. 3. ?Place swab directly into the mouth by tipping the tube so that the swab falls into the mouth. The swab should be placed under the tongue or allow to move freely across the tongue. ?Do not place a swab between cheek and gum. ?Gently chewing the swab is acceptable. 4. ?Keep the swab in your mouth for 2 to 3 minutes. ?Be sure the swab is completely saturated with saliva; this will ensure that enough volume is collected. 5. ?Return the swab back into the insert. ?Do not touch the swab with the fingers. ?Do not remove the insert from the tube. 6. ?Replace the stopper, ensuring that the cap is tight [the cap will click when inserted properly] 7. ?Return salivette collection device to the lab. Preparation instruction If multiple specimens are submitted, ensure that all tubes are clearly labeled with correct time and date. Submit specimen in salivette collection device only. ?Other containers are not acceptable. Do kidney ultrasound Coding Level of Care Code New Pt Level 5 (28702) Diagnoses Hyperparathyroidism E21.3 Hypertension, unspecified type I10 Hypertension type: unspecified Obesity (BMI 35.0-39.9 without comorbidity) E66.9 Hypokalemia E87.6 Cushingoid facies R68.89 Time Spent (min) 60
== END 2024-04-18 16:25 | disposition home or self-care (01) ==
PROVIDERS: PCP Physician Assistant; Visit Provider Student in an Organized Health Care Education/Training Program
DX: E21.3 Hyperparathyroidism, unspecified (principal); I10 Essential (primary) hypertension; E66.9 Obesity, unspecified; E87.6 Hypokalemia; R68.89 Other general symptoms and signs
CPT/HCPCS: 99205

== ENCOUNTER → 2024-04-18 15:23 | Outpatient (BNVA) | payer BC, SELFPAY | PROVIDERS: PCP Physician Assistant; Visit Provider Student in an Organized Health Care Education/Training Program ==

== ENCOUNTER → 2024-06-22 16:19 | Outpatient (BNV) | payer BC, SELFPAY | PROVIDERS: PCP Physician Assistant; Visit Provider Radiology Diagnostic Radiology | DX: Q61.01 Congenital single renal cyst (principal) | CPT/HCPCS: 74183 ==

== ENCOUNTER 2024-08-30 15:04 | Outpatient (AMB) | payer BC, SELFPAY ==
[2024-08-30 15:06] VITALS: BP 122/70; PULSE 122; O2SAT 97; BMI 37.7
--- NOTE | 2024-08-30 15:06 | A.OFFVIS_ITS ---
Vital Signs 08/30/24 15:06 Height 5 ft 3 in Weight 212 lb 15.465 oz BMI 37.7 BP 122/70 Blood Pressure Location Lt brachial Position Sitting Pulse 122 H Pulse Source Pulse Oximeter Pulse Oximetry (%) 97 Oxygen Delivery Method Room Air Intake Visit Reasons: Crohn's Colitis Intake Note: Patient last seen by Doctor Teresa Adames on 01/27/24. Presents today for Crohn's Colitis follow up and test results. Patient states that she was unable to get the blood work. Allergies shellfish derived [SHELLFISH DERIVED] Allergy (Severe, Verified 08/30/24 15:11) ANGIOEDEMA Medication List - Last Reconciled 08/30/24 by Candis Ng MD blood pressure monitor As directed ciclopirox 0.77% 1 appl topical BID clobetasol 0.05% 1 appl topical DAILY 2 weeks clobetasol 0.05% 1 appl topical BID 2 weeks cyclobenzaprine 10 mg PO BID PRN 30 days dicyclomine 10 mg PO BID PRN gabapentin 1,200 mg PO TID Humira(CF) Pen (adalimumab) 40 mg (0.4 mL) subcut Q2W NS hydroxyzine HCl 25 mg PO DAILY PRN 90 days levothyroxine 25 mcg PO DAILY metoprolol succinate ER 25 mg PO DAILY norethindrone (contraceptive) 0.35 mg PO DAILY omeprazole 20 mg PO DAILY spironolactone 25 mg PO BID trazodone 50 mg PO DAILY PRN HPI Comments Details: Patient is a 28-year-old female with allergies, hypothyroidism, hypertension, hyperlipidemia, hyperparathyroidism, Crohn's disease, GERD, depression/anxiety, and non radiographic axial spondyloarthritis here today for follow up Interval History: Patient last seen 01/27/[address] Adames. At that time she was following up for her non radiographic axial spondyloarthritis. She had recently started Humira and the exam had significantly less tender joints. Plan was to continue the Humira Since May has not been on Humira due to insurance issues and she has noticed worsening joint pain and swelling Was able to start her Humira about 1 week ago. Currently complaining of worsening neuropathy as well involving the feet and escalating to the calves Rheumatologic History: Initial history: This is a 27-year-old female who presents for evaluation of diffuse pain. Back in 2020, patient presented to the hospital with abdominal pain, CT abdomen showed ileitis, colonoscopy with biopsy showed findings suggestive of inflammation, patient was started on mesalamine for presumed disease. She took it for a few months then self discontinued it. She has been following up with Gastroenterology and has not been started on any other medication for Crohn's. She states that recently she has been having lower mid back pain as well as bilateral leg nerve pain worse on the right. She was evaluated by Podiatry and no specific diagnosis was given. She was also evaluated by physiatry, L-spine MRI according to patient showed a bulging disc, right lower extremity EMG showed signs suggestive of lumbar radiculopathy. He was prescribed in 9 day course of steroid as a trial by physiatry which gave her significant relief in the 1st 3 days then as patient was tapering down her prednisone she had severe pain in her feet and she went to the emergency room. She has been having generalized swelling of her entire body. She gained about 30 lb over the last 3 years without any significant change in her diet or exercise. She also noticed reddish discoloration of her face. She has noticed some hyperpigmentation of her neck. She has significant difficulty moving her fingers. Her mother has history of RA. Patient stated that she had superficial blood clots she was on control in the past. She did not to be on a blood thinner. Current Rheumatology Medication(s): Humira 40 mg every other week [facility] Medical History (Updated 09/01/24 @ 07:49 by Candis Ng MD) Crohn's disease Prediabetes Screening for hypothyroidism Screening for hyperlipidemia Hypertension Surgical History History of colonoscopy History of esophagogastroduodenoscopy (EGD) Family History Father GERD (gastroesophageal reflux disease) Mother History of cancer Family history of arthritis Rheumatoid arthritis Maternal Grandfather Prostate cancer Maternal Aunt Breast cancer Other Mental health disorder Substance use disorder Social History Housing: House Alcohol intake: current Alcohol intake frequency: holidays/special occasions only Patient Tobacco Use Status: Current someday Tobacco user Tobacco use type: Cigarette Cigarettes Per Day: 3 Years Smoked: 3 e-Cigarette/Vaping Use: Former Use Second Hand Smoke Exposure: Yes service: No Current occupational status: employed 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 Current occupational exposures/hazards: No Cognitive needs: No Hearing needs: No Vision needs: No Review of Systems Const Details: Review of Systems Constitutional: Denies fever, chills, weight loss ENT: Denies vision changes, eye pain or eye redness, dental caries, dry mouth GI: Denies nausea, vomiting, diarrhea, abdominal pain, change in BM Pulm: Denies SOB, MCKEON, hemoptysis, wheezing Cards: Denies chest pain, palpitations Skin: Denies Raynaud's, rash, nail changes, photosensitivity, CHIEF COMPLIANCE OFFICER: Denies headaches, weakness, paresthesias, recurrent falls MSK: as per HPI All other systems reviewed and are unremarkable except noted above Physical Exam Vital Signs: Last Vital Signs Pulse 122 H 08/30/24 15:06 BP 122/70 08/30/24 15:06 Pulse Ox 97 08/30/24 15:06 Oxygen Delivery Method Room Air 08/30/24 15:06 BMI result Body Mass Index 37.7 Vital signs reviewed Physical Examination CONSTITUITIONAL Patient alert and cooperative. Well appearing and in no apparent painful distress HEENT Conjunctiva and sclera clear. ?Pupils equal round and reactive to light. ?No lymphadenopathy. ? CHEST/RESPIRATORY SYSTEM Normal respiratory effort and able to speak in complete sentences. ?Clear to auscultation bilaterally. ?No crackles, rales, rhonchi, wheezes heard. CARDIAC SYSTEM Regular rate and rhythm. ?S1 and S2 heard no murmurs. ?Radial pulses intact bilaterally MSK Hands: ?Good technical services representative strength bilaterally. No deformities noted. ?No synovitis noted to the MCPs, PIPs or DIPs. ?No tenderness to palpation of these joints. Wrists: ?Full range of motion at the wrists without pain. ?No tenderness to palpation or synovitis noted to the wrists. Elbows: Full range of motion without pain. No tenderness, weakness, swelling, increased warmth or erythema. Shoulders: Full range of motion without pain. No tenderness, weakness, swelling, increased warmth or erythema. Hips: Full range of motion without pain. Hip bursa: No tenderness to palpation Knees: ?Full range of motion. ?No tenderness, swelling, increased warmth or erythema.?No effusion or crepitations Ankles: Full range of motion. ?No tenderness, swelling, increased warmth or erythema.? Feet: ?Negative squeeze test. ?No tenderness to palpation or swelling of the MTPs. Tender points:?No tenderness to palpation of the bilateral trapezius, sup raspinatus, greater trochanters, anterior costochondral junctions, bilateral gluteal areas, bilateral suboccipital muscle insertions SKIN Skin intact without rashes. Office Procedures AMB Joint Injection/Aspiration Joint Injection/Aspiration Primary Site: other (left greater trochanter) Prep: site was prepped using aseptic technique and ethochloride spray was applied Injected: 40 mg of, Kenalog, with 1 mL of and 1% plain lidocaine Approach Used: other Procedure: The patient tolerated the procedure well Coding 27191 - Glenohumeral/Tronchanteric Bursa/Intraarticular Procedure code (CPT) selection complete Office Meds lidocaine (PF) 10 mg/mL (1 %) injection solution Performing Provider: Candis Ng MD [place] [facility] [place] Administered by: Candis Ng MD on 08/30/24 11:47 Dose Route Admin Location Dispensed Lot Number Expiration Date [facility] [place] Rubber Down 1 mL Infiltration left greater trochanter 2 mL [id number] 08/16/26 23990-451-11 [facility] Kenalog 40 mg/mL suspension for injection Performing Provider: Candis Ng MD Performing Location: [facility] [place] Administered by: Candis Ng MD on 08/30/24 10:48 Dose Route Admin Location Dispensed Lot Number Expiration Date [facility] [place] Rubber Down 40 mg intrabursal left greater trochanter 1 mL [id number] 11/15/25 92216-1234-0 [employer] Results Reviewed Results Reviewed: Laboratory Tests 03/30/24 04/01/24 16:03 14:51 WBC 7.4 RBC 4.34 Hgb 13.9 Hct 39.6 Plt Count 315 ESR 18 Sodium 139 Potassium 3.6 D Chloride 103 Carbon Dioxide 28 BUN 10 Creatinine 0.83 Calcium 9.5 D Total Bilirubin 0.6 AST 82 H ALT 110 H Alkaline Phosphatase 113 C-Reactive Protein 0.65 H Immunology labs 08/20/23 14:57 Rheumatoid Factor < 13.0 Cycl Citrul Peptide IgG <16 LAST Screen NEGATIVE HLA-B27 Negative Infectious serologies 08/20/23 14:57 Hepatitis A IgM Ab Nonreactive Hep Bs Antigen Negative Hep Bs Antibody NONREACTIVE Hep B Core Total Ab Nonreactive Hepatitis C Ab (EIA) Nonreactive TB Test (T-Spot) Com Negative XR Hands, SI Joints 08/2023 FINDINGS: LEFT HAND: Bone mineralization is normal. Cystic lucency overlying the hamate. Joint spaces and bone alignment preserved. No acute displaced fracture appreciated. RIGHT HAND: Radiopaque marker placed by technologist indicating area of concern as indicated by the patient along radial aspect of the wrist. Mild degenerative changes in the first carpometacarpal joint with joint space narrowing and hypertrophic change. Bone mineralization is normal. No displaced fracture is appreciated. BILATERAL SACROILIAC JOINTS: Moderate degenerative changes in the bilateral sacroiliac joints with hypertrophic change and joint space narrowing. EMG 03/2024 FINDINGS: Right peroneal nerve showed prolonged distal latencies, small amplitudes and normal conduction velocity. Right tibial nerve showed very small amplitude, almost absent. Normal conduction velocity. Left tibial nerve showed normal distal latencies, normal amplitude, slow conduction velocity. Bilateral sural nerves showed normal response. Concentric needle EMG was performed in selected muscles of the bilateral lower extremities and lumbar paraspinals . Study revealed signs of electric abnormalities as shown in the table above. Bilateral AH and TA muscle showed increased insertional activity, PSWs, fibrillations. No denervation seen on lumbar paraspinals. IMPRESSION: 1. This is an abnormal study. 2. Agree with previous EMG by Dr. Ruffin that findings are suggestive of lumbar radiculopathy, bilateral L5-S1. However, neuropathy, that is primarily affecting distal motor, is not completely ruled out. 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 Currently in a mild flare of her disease due to not being on her Humira for prolonged period of time due to insurance issues. Restarted her Humira recently. The concern is that she is also having these neuropathy type symptoms with positive EMG. It was unclear whether the neuropathy predate the Humira because Humira in and of itself can cause neuropathy. We will continue the Humira for now and re- evaluate at the next visit and potentially consider switching her to a UDAY inhibitor. Plan - Continue humira 40mg SC every other week for now - Labs today: CBC, CMP, ESR, CRP, hepatitis panel, T spot - RTC 3 months (2) Peripheral neuropathy: Code(s): G62.9 - Polyneuropathy, unspecified Category: Medical Qualifiers: Peripheral neuropathy type: polyneuropathy, unspecified Qualified Code(s): G62.9 - Polyneuropathy, unspecified Plan: #Peripheral neuropathy Patient with peripheral neuropathy that is slowly worsening. Proven on EMG. There is lumbar radiculopathy but there is also sensory motor neuropathy of the lower extremity. We will continue gabapentin and add alpha lipoic acid Plan - Continue gabapentin 1200mg tid - Alpha lipoic acid 600mg daily (3) Greater trochanteric bursitis of left hip: Code(s): M70.62 - Trochanteric bursitis, left hip Plan: #Greater trochanteric bursitis left hip Patient with greater trochanteric bursitis s/p steroid injection (4) Encounter for monitoring of adalimumab therapy: Code(s): Z51.81 - Encounter for therapeutic drug level monitoring; Z79.620 - lobsterman (current) use of immunosuppressive biologic Plan: #Long-term Use of TNF Inhibitors: Humira Discussed with the patient the benefits and risks of TNF inhibitors for the management of the rheumatic condition Benefits include reduce pain, maintenance of remission and reduction of flares as well as ?progression of the disease Risks include injection sites/infusion reactions, serious infections (such as bacterial infections, opportunistic infections), malignancy, delaminating syndromes, autoimmune phenomena, CHF exacerbations, palmar plantar psoriasis and cytopenias Recommended rotating injection sites, and holding medication during and for up to 1 week after resolution of a febrile illness or open skin wound Plan I spent 33 minutes reviewing the record and labs, taking a history, examining the patient, discussing the treatment plan, ordering diagnostic work up and documenting in the medical record Orders: Orders Complete Blood Count Auto Diff 08/30/24 M45.A0 - Non-radiographic axial spondyloarthritis of unspecified sites in spine Comprehensive Met. Panel 08/30/24 M45.A0 - Non-radiographic axial spondyloarthritis of unspecified sites in spine C Reactive Protein 08/30/24 M45.A0 - Non-radiographic axial spondyloarthritis of unspecified sites in spine Erythrocyte Sedimentation Rate 08/30/24 M45.A0 - Non-radiographic axial spondyloarthritis of unspecified sites in spine Hepatitis A,B,C Profile 08/30/24 M45.A0 - Non-radiographic axial spondyloarthritis of unspecified sites in spine T Spot TB 08/30/24 M45.A0 - Non-radiographic axial spondyloarthritis of unspecified sites in spine AMB Joint Injection/Aspiration 08/30/24 M70.62 - Trochanteric bursitis, left hip Medications: New alpha lipoic acid 600 mg PO DAILY 90 caps 1RF G62.9 - Polyneuropathy, unspecified Coding Level of Care Code Est Pt Level 4 (38042) Complex EM visit Add On G2211 Diagnoses Non-radiographic axial spondyloarthritis M45.A0 Peripheral polyneuropathy G62.9 Peripheral neuropathy type: polyneuropathy, unspecified Greater trochanteric bursitis of left hip M70.62 Encounter for monitoring of adalimumab therapy Z51.81; Z79.620 CPT Codes Coding - Joint 7: 97739 - Glenohumeral/Tronchanteric Bursa/Intraarticular ([id number])
--- OUTSIDE RECORDS SUMMARY | 2024-08-30 18:23 | XMS_ITS | Clinical Summary ---
Author Organization [facility] Address [address] [place] [address] Phone Care Team Providers Care Uniform Room Attendant Name Role Phone Christiano Park MD Primary Care Provider Allergies Active Allergy Reactions Criticality Noted Date Comments Shellfish Allergy Medications levonorgestrel (MIRENA, 52 MG,) 20 MCG/24HR IUD Mirena; 05/05/2014; Active 4 Active cetirizine (ZYRTEC ALLERGY) 10 MG tabletIndication s:Viral URI Take 1 tablet (10 mg total) by mouth nightly as needed for allergies. 30 tablet 1 8 Active Additional Information Patient not taking.Reported on 11/23/2020 ciprofloxacin 500 MG tablet 1 Active metroNIDAZOLE 500 MG tablet 1 Active omeprazole 20 MG delayed-release capsule Take by mouth once daily. 1 Active traZODone 50 MG tabletIndication s:Generalized anxiety disorder TAKE 1 TABLET(50 MG) BY MOUTH EVERY NIGHT 30 tablet 1 Active hydrochlorothiaz dioni 25 MG tabletIndication s:Essential hypertension Take 1 tablet (25 mg total) by mouth daily. 90 tablet 2 Active Active Problems Problem Noted Date Diagnosed Date Alcohol use 11/24/2020 Assessment & Plan (11/24/2020 9:28 AM EDT): Has alcoholic drinks 1-2 times over a weekend. Can be up to 7 drinks. Recommended cutting back to only 1-2 drinks for an event. On further review of chart, with elevated liver enzymes followed by GI and essential hypertention will recommend cessation of alcohol intake at follow up appointment. Pitting edema 11/24/2020 Assessment & Plan (12/15/2020 12:29 AM EDT): Obtaining an EKG to check for cardiac issues with pitting edema. Assessment & Plan (11/24/2020 9:39 AM EDT): Concern for kidney issues. No obvious cardiac symptoms. No calf pain to suggest a DVT. Will obtain blood work to look at kidney function. Follow up in 1-2 weeks. Epigastric pain 02/08/2020 Overview (07/10/2020): 06/21/2020 - Dr. Tomlinson - Ileitis. Budesonide and pentasa capsule extended release. Continue omeprazole and imodium. Assessment & Plan (11/24/2020 9:30 AM EDT): Continue follow up with communications department chairperson for GI issues. Assessment & Plan (07/10/2020 4:29 PM EST): DOS 06/21/2020 ?? CC Ileitis ?? Assessment: Ileitis, elevated liver function tests, abdominal pain, diarrhea, abdominal CT scan-colon ?? Treatment: Ileitis- budesonide, Pentasa Capsule extended release Continue omeprazole, imodium for diarrhea Assessment & Plan (06/12/2020 4:32 PM EST): 06/07/20 Torres Tomlinson MD ?? CC:?Crohns Disease ?? [place] [facility] and referred to GI for abnormal CAT scan of GI tract, abdominal pain and diarrhea and elevated LFT's. ?? Patient was treated with a 1 wk Cipro and Flagyl upon discharge from ED. ?? Recommendations: Colonoscopy, Upper Endoscopy Repeat bloodwork D/c all Ibuprofen and NSAIDS Assessment & Plan (06/05/2020 3:51 PM EST): Continue with omeprazole. Assessment & Plan (02/08/2020 6:10 PM EDT): Significant epigastric tenderness noted on exam. Good capillary refill. No widening pulse pressure or low blood pressure noted. Concern for ulcer or stomach inflammation. Will obtain lab work to check for infection, inflammatory signs, anemia, liver irritation, pancreatic irritation, gallbladder issue. Will start omeprazole to help with acid irritation. Referral to Adult Gastroenterology to evaluate presentation further as this has been going on for some time. BMI 38.0-38.9,adult 07/25/2018 Assessment & Plan (12/15/2020 12:26 AM EDT): Screening lab work to check for thyroid dysfunction, cholesterol issues, kidney dysfunction and to trend liver enzymes. Recommended cutting out alcohol to help bring down liver enzymes and help with weight. Assessment & Plan (11/24/2020 9:36 AM EDT): BMI over 25 and more so over 30 places patient at increased risk for development of diabetes, cardiovascular disease and kidney disease. Discussed these things in this visit. Discussed importance of being active every day. Will screen for cholesterol, diabetes and elevated liver transaminases. Assessment & Plan (07/25/2018 3:55 PM EDT): BMI over 25 and more so over 30 places patient at increased risk for development of diabetes, cardiovascular disease and kidney disease. Discussed these things in this visit. Discussed importance of being active 30 minutes every day. Talked about portion sizes. Discussed cutting out juice and soda. Will screen for cholesterol, diabetes and elevated liver transaminases. Essential hypertension 07/25/2018 Assessment & Plan (12/15/2020 12:30 AM EDT): No noted issues on lab work previously that would relate to hypertension. Will start with hydrochlorothiazide as a diuretic. Referral to adult cardiology to help with management of hypertension and pitting edema. Scheduled follow up in 3-4 weeks to see how she is doing with this if she has not already been seen by cardiology. Assessment & Plan (11/24/2020 10:26 AM EDT): Obtaining lab work to assess kidney function particularly with pitting edema present. Follow up in 1-2 weeks to review lab work and recommend blood pressure medication and likely referral to cardiology. Assessment & Plan (07/25/2018 4:02 PM EDT): Three separate visits with elevated blood pressure to make diagnosis of hypertension. She has been on clonidine to help with sleep. Increase dose of clonidine to help with blood pressure to 0.2mg nightly. Will obtain blood work checking renal function. Follow up in 2 weeks to recheck blood pressure. Consider increasing dose to 0.2mg twice a day. Generalized anxiety disorder 07/13/2017 Overview (02/09/2018): Generalized anxiety disorder (300.02) Onset: 07/13/2017 Added by: Vilma Perez Assessment & Plan (02/08/2020 6:06 PM EDT): Patient still having trouble getting to sleep. She was previously on Trazodone and clonidine for this more than a year ago. Will prescribe trazodone to help with sleep initiation. Follow up in 3 weeks to see how this is going. Assessment & Plan (07/25/2018 3:54 PM EDT): Currently taking trazodone 100mg daily in the evening. She has a lot of stress from work. Not sleeping well and disrupted eating schedule. She has episodes of what appear to be anxiety multiple times each week. Will obtain ECG to check for cardiac issues. Plan to continue with trazodone 100mg in the evening for anxiety. Follow up in 2 weeks and likely increase this dose by adding 50mg and then 100mg in the morning. Assessment & Plan (02/26/2018 2:29 PM EDT): Currently using trazodone as needed 1 out of every 4 nights to help with sleep. She has a court date coming up in 2 weeks and also trying to get through a viral cold. Discussed regular use of trazodone 50mg daily for the next two weeks. Assessment & Plan (02/09/2018 1:27 PM EDT): Treated with trazodone for anxiety over the last year. Will fill script today and set follow up with Dr. Serafin to review this within the next 4 weeks. Resolved Problems Problem Noted Date Diagnosed Date Resolved Date Postconcussion syndrome 02/04/2011 03/0 12/2018 Overview (02/09/2018): Post concussion syndrome (310.2) Onset: 02/04/2011 Added by: Francesca Kendrick Immunizations Immunization Administration Dates Next Due DTaP 5 01/17/2000, 7,07/16/1996, 997,02/16/1996 H1N1 Inj 05/21/2009 HPV, Quadrivalent 05/21/2009,09/11/2008,07/03/19 09 Hep B, ped/adol 07/16/1996,05/18/1996,02/16/1996 Hib (PRP-T) 03/31/1997, 7,05/18/1996, 996 IPV 01/17/2000 Influenza, injectable, trivalent 04/21/2018,08/2009 MMR 01/17/2000,11/15/1996 Meningococcal Conj (Menactra) MCV4P 10/28/2013,0 06/23/2007 OPV 07/16/1996,05/18/1996,02/16/1996 Tdap 07/23/2018,06/23/2007 Varicella 06/23/2007,03/31/1997 Family History Medical History Relation Name Comments Alcoholism Father's Brother No Known Problems Mother Gloria Relation Name Status Comments Brother 1 Driss Alive Brother 2 Agustin Alive Father Bahman Alive Father's Brother Mother Gloria Alive Social History Tobacco Use Types Packs/Day Years Used Date Smoking Tobacco: Never Smokeless Tobacco: Never Comments:Never Smoker Alcohol Use Standard Drinks/Week Comments Yes 0 (1 standard drink = 0.6 oz pur e alcohol) special ocassions Hunger/Food Answer Date Recorded In the last 12 months, did y ou or your family ever eat less than you felt you should because there wasn't enough money for food? No 11/23/2020 Stable Housing Answer Date Recorded Are you worried that in the next 2 months you may not have stable housing? No 11/23/2020 Transportation Concerns Answer Date Rec orded In the last 12 months, have you or your family ever had to go without healthcare because you didn't have a way to get there? No 11/23/2020 Hazards in Home Answer Date Recorded Think about the place you li ve. Do you have problems with any of the following? Pests (mice or roaches), mold, no/not working smoke detectors, water leaks, no window guards. Yes 2020 Financing Utilities Answer Date Recorde d In the last 12 months, has t he electric, gas, oil, or water company threatened to shut off your services in your home? No 11/23/2020 Safety at Home Answer Date Recorded Are you or your family worried about feeling saf e in your home? No 11/23/2020 Outside Support Answer Date Recorded Do you feel that you need mo re support from other people or programs to help you care for yourself or your family? No 11/23/2020 Understanding Health Concerns Answer Da te Recorded Do you need help understandi ng your or your child's healthcare needs (diagnosis, medications, plan, etc.)? No 11/23/2020 Financing Health Concerns Answer Date R ecorded In the last 12 months, was t here a time when your child needed to see a doctor or get medications or supplies but could not because of cost? No 11/23/2020 Missing School or Work Answer Date Rigoberto rded Did you or your child miss s chool or work because of a health problem that could have been avoided? Yes 11/23/2020 Comments No Sex and Gender Information Value Date Recorded Sex Assigned at Not on file Legal Sex Female 6:25 PM EDT Gender Identity Female 12/23/2020 10:35 PM EDT Sexual Orientation Not on file Last Filed Vital Signs Vital Sign Reading Time Taken Comments Blood Pressure 148/110 12/14/2020 4:17 PM EDT Pulse 119 11/23/2020 4:25 PM EDT Temperature 36.7 ??C (98 ??F) 12/14/2020 4:17 PM EDT Respiratory Rate - - Oxygen Saturation - - Inhaled Oxygen Concentration - - Weight 99 kg (218 lb 4.8 oz) 12/14/2020 4:17 PM EDT Height 160 cm (5' 2.99 ) 12/14/2020 4:17 PM EDT Body Mass Index 38.68 12/14/2020 4:17 PM EDT Plan of Treatment Health Maintenance Due Date Last Done Comments Influenza Vaccines (#1) 2023 04/21/2018, 05/21 COVID-19 Vaccine ( season) 2024 10/02/2020, 09/11/2020 DTaP,Tdap,and Td Vaccines (8 - Td or Tdap) 07/23/2028 07/23/2018, 06/23/2007, 01/17/2000, Additional history exists Hepatitis B Vaccines Completed 07/16/1996, 05/18/1996, 02/16/1996 HIB Vaccines Completed 03/31/1997, 05/1996, 05/18/1996, Additional history exists IPV Vaccines Completed 01/17/2000, 05/1996, 05/18/1996, Additional history exists MMR Vaccines Completed 01/17/2000, 11/15/1996 Varicella Vaccines Completed 06/23/2007, 03/31/1997 HPV Vaccines Completed 05/21/2009, 08/17, 07/03/2008 Meningococcal Vaccine Completed 10/28/2013, 008 Hepatitis A Vaccines Aged Out No long er eligible based on patient's age to complete this topic Men B Vaccine Aged Out No longer elig ible based on patient's age to complete this topic Pneumococcal Vaccine Aged Out No long er eligible based on patient's age to complete this topic Procedures * Due to [place] [employer] law, this organization might not be sharing sensitive test results. Procedure Name Priority Date/Time Associated Diagnosis Comments CHLAMYDIA GC AMP PROBE Routine 11/23/2020 4:43 PM EDT STD (female) from Last 3 Months or Most Recently Relevant to Health Maintenance Results * Due to [place] [employer] law, this organization might not be sharing sensitive test results. * CHLAMYDIA GC AMP PROBE (11/23/2020 4:43 PM EDT) Chlamydia Trachomatis, Amplified NEGATIVE (NEG) [facility] Comment: No Chlamydia Trachomatis RNA detected in this patient's sample ? (REFERENCE RANGE/NORMAL VALUE: NOT DETECTED) ? Note: This test uses windows application administrator- mediated amplification method to detect rRNA from C. Trachomatis N.GONORRHOEAE AMP PROBE NEGATIVE (NEG) [facility] Comment: No Neisseria Gonorrhoeae RNA detected in this patient's sample ? (REFERENCE RANGE/NORMAL VALUE: NOT DETECTED) ? NOTE: This test uses windows application administrator-mediated amplification method to detect rRNA from N.Gonorrhoeae. A negative result does not preclude infection. In the case of a negative urine result, testing of an endocervical(female) or urethral (male) specimen is recommended if there is high clinical suspicion of infection. Due to very high sensitivity of Nucleic Acid Amplification Test, false positive results may occur. Therefore, specimen handling is extremely important. In patients in whom the disease is unlikely, additional sample for testing should be considered after an initial positive result. The performance characteristics of this test have not been evaluated in children. The Aptima Combo2 assay is not intended for the evaluation of suspected sexual abuse or for other medico-legal indications. The ordering provider should assess if the patient had consensual sex without risk of sexual abuse. Consult the [facility] if needed. Contact phone number . Therapeutic failure or success cannot be determined with the Aptima Combo2 assay since nucleic acid may persist following appropriate antimicrobial therapy. The Centers for Disease Control and Prevention (CDC) recommends confirmatory retesting using culture or a different nucleic acid amplification test when positive results occur, if indicated. CHLAM/GC AMP PROBE SPEC TYPE VAGINAL SPECIMEN [facility] Comment: Testing performed or reported by [facility], a Service of [facility], [address] [place] [id number] Tomer Morales MD, Configuration Release Manager Swab (Vagina) 11/23/2020 4:4 3 PM EDT 11/23/2020 11:48 PM EDT us Christiano Park MD LAB MICROBIOLOGY - GENERAL O RDERABLES Final Result [facility] from Last 3 Months or Most Recently Relevant to Health Maintenance Insurance [facility] [place]: [address] [place] [id number] Care Teams Uniform Room Attendant Relationship Specialty Start Date End Date Christiano Park MD [address] [place] [address] [place] [phone] PCP - General Pediatrics 10/26/20
--- OUTSIDE RECORDS SUMMARY | 2024-08-30 18:23 | XMS_ITS | Encounter Summary ---
Author Organization [facility] Address [address] [place] [address] Phone Care Team Providers Care Senior Product Analyst Name Role Phone Christiano Park MD Primary Care Provider + [phone] Reason for Visit * Reason Onset Date Comments Med Refill Med Refill 03/18/2021 Encounter Details Date Type Department Care Team (Late st Contact Info) Description 03/18/2021 Refill [facility] [address] [place] [address] [place] [phone] Al Eagle MD [address] [place] [address] [place] [phone] Essential hypertension Social History Tobacco Use Types Packs/Day Years [...] PM EDT Sexual Orientation Not on file documented as of this encounter Miscellaneous Notes * Telephone Encounter - Christiano Park MD - 03/18/2021 2:19 PM EDT Needs a new PCP office. Filled script for blood pressure medication currently but would not be ableto fill this going forward in 2021. * Telephone Encounter - Leela Dubon MA - 03/18/2021 2:01 PM EDT [facility] 12/14/20 documented in this encounter Plan of Treatment Not on file documented as of this encounter Visit Diagnoses Diagnosis Essential hypertension Unspecified essential hypertension documented in this encounter Care Teams Senior Product Analyst Relationship Specialty Start Date End Date Christiano Park MD [facility] [place] [id number] PCP - General Pediatrics 10/26/20 documented as of this encounter
--- OUTSIDE RECORDS SUMMARY | 2024-08-30 18:23 | XMS_ITS | Encounter Summary ---
Author Organization [facility] Address [address] [place] [address] Phone Care Team Providers Care Community Marketing Coordinator Name Role Phone Christiano Park MD Primary Care Provider [phone] Reason for Visit * Reason Comments Med Refill Encounter Details Date Type Department Care Team (Late st Contact Info) Description 02/09/2018 Refill [facility] [address] [place] [address] [place] [address] Christiano Park MD [address] [place] [address] [place] [phone] Generalized anxiety disorder Social History Tobacco Use Types Packs/Day Years Used Date Smoking Tobacco: Never Comments:Never Smoker Comments Unknown Sex and Gender Information Value Date Recorded Sex Assigned at Not on file Legal Sex Female 6:25 PM EDT Gender Identity Female 12/23/2020 10:35 PM EDT Sexual Orientation Not on file documented as of this encounter Plan of Treatment Not on file documented as of this encounter Visit Diagnoses Diagnosis Generalized anxiety disorder documented in this encounter Care Teams Community Marketing Coordinator Relationship Specialty Start Date End Date Christiano Park MD [address] [place] [address] [place] [phone] PCP - General Pediatrics 10/26/20 documented as of this encounter
--- OUTSIDE RECORDS SUMMARY | 2024-08-30 18:23 | XMS_ITS | Encounter Summary ---
Author Organization [facility] Address [address] [place] [phone] Phone Care Team Providers Care Tenderizer Tender Name Role Phone Christiano Park MD Primary Care Provider + [phone] Reason for Visit * Reason Comments Med Refill Encounter Details Date Type Department Care Team ([facility] st Contact Info) Description 06/30/2021 Refill [facility] [address] [place] [address] [place] [address] Christiano Park MD [address] [place] [address] [place] [address] Generalized anxiety disorder Social History Tobacco Use [...] detectors, water leaks, no window guards. Yes 07/09/ 2021 Financing Utilities Answer Date Recorde d In [...] disorder documented in this encounter Care Teams Tenderizer Tender Relationship Specialty Start Date End Date Christiano Park MD [facility] [place] [address] PCP - General Pediatrics 10/26/20 documented as of this encounter
--- OUTSIDE RECORDS SUMMARY | 2024-08-30 18:23 | XMS_ITS | Encounter Summary ---
Author Organization [facility] Address [address] [place] [address] Phone Care Team Providers Care Associate Drafter Name Role Phone Christiano Park MD Primary Care Provider + [phone] Reason for Visit * Reason Comments Med Refill Encounter Details Date Type Department Care Team ([facility] st Contact Info) Description 06/28/2021 Refill [facility] [address] [place] [address] [place] [address] Christiano Park MD [address] [place] [address] [place] [phone] Essential hypertension Social History Tobacco Use Types [...] encounter Miscellaneous Notes * Telephone Encounter - Rose Gay MA - 06/28/2021 8:01 AM EST Discharged to adult medicine documented in this encounter Plan of Treatment Not on file documented as of this encounter Visit Diagnoses Diagnosis Essential hypertension Unspecified essential hypertension documented in this encounter Care Teams Associate Drafter Relationship Specialty Start Date End Date Christiano Park MD [facility] [place] [address] PCP - General Pediatrics 10/26/20 documented as of this encounter
--- OUTSIDE RECORDS SUMMARY | 2024-08-30 18:23 | XMS_ITS | Clinical Summary ---
Author Organization Patient Business [facility] Address [address] [place] [address] Care Team Providers Care News Clerk Name Role Phone Unavailable Primary Care Provider Unavailabl e Social History Tobacco Use Types Packs/Day Years Used Date Smoking Tobacco: Never Assessed Comments Unknown Sex and Gender Information Value Date Recorded Sex Assigned at Not on file Legal Sex Female 8:46 PM EST Gender Identity Not on file Sexual Orientation Not on file Last Filed Vital Signs Vital Sign Reading Time Taken Comments Blood Pressure - - Pulse - - Temperature - - Respiratory Rate - - Oxygen Saturation - - Inhaled Oxygen Concentration - - Weight 100 kg (221 lb) 06/29/2023 3:19 PM EST Height 160 cm (5' 3 ) 06/29/2023 3:19 PM EST Body Mass Index 39.15 06/29/2023 3:19 PM EST Plan of Treatment Health Maintenance Due Date Last Done Comments DTaP,Tdap,and Td Vaccines (1 - Tdap) 12/06/2014 Hepatitis B Vaccines (1 of 3 - 19+ 3-dose series) 12/06/2014 Cervical Cancer Screening: P ap Smear 12/06/2016 Depression Screening 06/12/2023 HIV Screening 06/12/2023 Hepatitis C Screening 06/12/2023 Social Influencers of Health Screening 06/12/2023 COVID-19 Vaccine ( - 2023-2 5 season) 2024 Influenza Vaccine (Season Ended) 2025 HIB Vaccines Aged Out No longer eligi ble based on patient's age to complete this topic HPV Vaccines Aged Out No longer eligi ble based on patient's age to complete this topic Hepatitis A Vaccines Aged Out No long er eligible based on patient's age to complete this topic IPV Vaccines Aged Out No longer eligi ble based on patient's age to complete this topic MMR Vaccines Aged Out No longer eligi ble based on patient's age to complete this topic Meningococcal ACWY Vaccine Aged Out N o longer eligible based on patient's age to complete this topic Meningococcal B Vaccine Aged Out No l onger eligible based on patient's age to complete this topic Pneumococcal Vaccine: Pediat rics (0 to 5 Years) and At-Risk Patients (6 to 64 Years) Aged Out No longer eligible b ased on patient's age to complete this topic RSV Immunization Patients Un shira 20 months Aged Out No longer eligible b ased on patient's age to complete this topic Varicella Vaccines Aged Out No longer eligible based on patient's age to complete this topic
--- OUTSIDE RECORDS SUMMARY | 2024-08-30 18:23 | XMS_ITS | Encounter Summary ---
Author Organization [facility] Address [address] [place] [address] Phone Care Team Providers Care Agriculture Inspector Name Role Phone Christiano Park MD Primary Care Provider [phone] Encounter Details Date Type Department Care Team (Late st Contact Info) Description 09/12/2010 Conversion Encounter [facility] [address] [place] [address] [place] [phone] Social History Tobacco Use Types Packs/Day Years [...] documented as of this encounter Visit Diagnoses Not on filedocumented in this encounter Care Teams Agriculture Inspector Relationship Specialty Start Date End Date Christiano Park MD [address] [place] [address] [place] [address] PCP - General Pediatrics 10/26/20 documented as of this encounter
--- OUTSIDE RECORDS SUMMARY | 2024-08-30 18:24 | XMS_ITS | Patient Health Record ---
Author Organization [facility] Address [address] [place] [address] Care Team Providers Care Upholstery Estimator Name Role Phone Jenny Hendrix Primary Care Provider Unavailab Torres Grullon Unavailable [phone] Allergies Allergen (clinical drug ingredient) Drug/Non Drug Allergy documented on EMR Reaction Allergy Type Onset Date Status Shellfish (FN) shell fish (uncoded) Unknown Allergy Active Reason For Referral No Information Medications Medication SIG (Take, Route, Frequency, Duration) Notes Start Date End Date Status hydrOXYzine HCl 25 MG Oral for 7 Active Metoprolol Succinate ER 25 MG TAKE 1/2 TABLET BY MOUTH DAILY Oral for 90 I10,Unavail able Active hydroCHLOROthiazide 25 MG TAKE 1 TABLET BY MOUTH DAILY Oral for 90 I10,Unavail able Active Omeprazole 20 MG TAKE 1 CAPSULE BY MOUTH EVERY DAY for 30 Active Norethindrone 0.35 MG TAKE 1 TABLET BY MOUTH DAILY Oral for 84 [id number],Unav ailable Active Pentasa 500 MG 2 capsules Orally Four times a day for 30 day(s) 06/21/2020 Not-Taking Budesonide 3 MG 3 Orally Once a day for 30 day(s) 06/21/2020 Not-Taking Dicyclomine HCl 10 MG 1 or 2 capsules Orally Every 6 hours if needed for abdominal pain/cramps/bloat ing for 30 days Active Imodium A-D 2 MG 1 or 2 Orally Every Four hours as needed for diarrhea for 30 days 05/19/2023 Active traZODone HCl 50 MG null Diagnosis Unavailable Oral for 30 Active Immunizations Vaccine Route Administration Date Status Comme nts Influenza Unknown 06/07/2020 Refused Social History Tobacco Use: Social History Observation Description Date Details (start date - stop date) Current Smoker NA - NA Tobacco Use/Smoking Question Answer Notes Patient is a current smoker How often do you smoke cigarettes? every day How many cigarettes a day do you smoke? 5 or les s Alcohol Screen Question Answer Notes Did you have a drink contain ing alcohol in the past year? Yes How often did you have a dri nk containing alcohol in the past year? Monthly or less (1 point) How many drinks did you have on a typical day when you were drinking in the past year? 1 or 2 drinks (0 point) How often did you have 6 or more drinks on one occasion in the past year? Never (0 point) Points 1 Interpretation Negative Section Notes: Will have an occasional ciga rette if having a drink--only once a month Will have an occasional ciga rette if having a drink--only once a month Will have an occasional ciga rette if having a drink--only once a month Will have an occasional ciga rette if having a drink--only once a month Will have an occasional ciga rette if having a drink--only once a month As of the 05/2023 office visi t she was having at least 3 large glasses of wine per day. She was still smoking occasionally. Problems Problem Type SNOMED Code ICD Code Onset Dates Problem Status W/U Status Risk Notes Problem Diarrhea (37746923) Diarrhea (R19.7) Active confirmed Problem Ileitis (87665481) Ileitis (K52.9) Active confirmed Problem 176695772 Irritable bowel syndrome with diarrhea (K58.0) Active confirmed Problem Epigastric pain (14855641) Abdominal pain, epigastric (R10.13) Active confirmed Problem Elevated liver enzymes level (266792298) Elevated liver function tests (R79.89) Active confirmed Problem 990894906 Fatty liver (K76.0) Active confirmed Problem 70237294 Alcoholic liver disease (K70.9) Active confirmed Problem Hiatal hernia (79736762) Hiatal hernia (K44.9) Active confirmed Problem Computed tomography result abnormal (990242949) Abnormal CT scan, colon (R93.3) Active confirmed Problem Gastroesophageal reflux disease (083665061) GERD (gastroesophag eal reflux disease) (K21.9) Active confirmed Encounters Encounter Location Date Provider Diagnosis [facility] [address] [place] [address] 01/11/2024 Torres Tomlinson [facility] [address] [place] [address] 05/20/2024 Torres Bushra [facility] [address] [place] [address] 08/02/2024 Torres Tomlinson Plan Of Treatment Pending Test Test Name Order Date LIVER PROFILE 04/01/2023 LIVER PROFILE 06/21/2020 LIVER PROFILE 06/07/2020 LIVER PROFILE 08/01/2020 LIVER PROFILE 09/18/2020 LIVER PROFILE 04/14/2023 LIVER PROFILE 05/19/2023 IRON + IBC (FE) 06/07/2020 FERRITIN 06/07/2020 CRP 09/18/2020 CRP 06/07/2020 CRP 06/21/2020 CRP 08/01/2020 CBC w DIFF 06/21/2020 CBC w DIFF 05/19/2023 CBC w DIFF 08/01/2020 CBC w DIFF 09/18/2020 CBC w DIFF 06/07/2020 CBC w DIFF 04/01/2023 SED RATE (ESR) 06/21/2020 SED RATE (ESR) 08/01/2020 SED RATE (ESR) 09/18/2020 SED RATE (ESR) 06/07/2020 CERULOPLASMIN 06/07/2020 MITOCHONDRIAL AB 06/07/2020 XR SMALL BOWEL SERIES 06/21/2020 FLUOR. ANTINUCLEAR AB SCREEN (CAROL) 05/19 STOOL WBC 05/19/2023 T SPOT TB 08/01/2020 C DIFFICILE RFLX PCR 05/19/2023 Prothrombin Time INR 05/19/2023 Liver Fibrosis Pnl 05/19/2023 Ethanol 04/14/2023 T Spot TB 09/18/2020 GI PANEL 05/19/2023 Future Test Test Name Order Date UPPER GI ENDOSCOPY 06/07/2020 COLONOSCOPY 06/07/2020 Next Appt Details Provider Name:Torres Tomlinson , 11/23/2024 03:00:00 PM, [address], [address], [place], [address], Insurance Providers Payer Name Payer Address Payer Phone Subscriber Number Group Number Insured Name Patient Relationship to Insured Coverage Start Date Coverage End Date [facility] [address] [place] [address] [phone] [id number] DIEGO WALLACE Self - patient is the insured Medical (General) History Medical History History ICD Code Hypertension--on no meds Denies [place],DM,CVA,Lung disease,renal dise ase GERD-EGD 05/2020 revealed a s mall to moderate-sized hiatal hernia, but no evidence of esophagitis nor Pool's esophagitis. Duodenal biopsies were negative for celiac disease and gastric biopsies were negative for H. pylori. Negative COVID test 06/02/20 Colonoscopy in 05/2020 reveal ed ileitis, but no colitis. Colon biopsies were unremarkable. The terminal ileum biopsies showed inflammation but did not reveal any granulomas. Fatty liver and alcohol-rela brennan liver disease with elevated LFTs--liver workup was completely negative in 05/2020 Ileitis--- small bowel serie s in June of 2020 revealed some mild changes of probable Crohn's disease in the distal terminal ileum, including some decreased distensibility. There was no evidence of any strictures nor fistulae. Neuropathy in her feet Hyperlipidemia Surgical History Surgery Date(Month/Year)
--- OUTSIDE RECORDS SUMMARY | 2024-08-30 18:24 | XMS_ITS ---
Author Organization [facility] Address [address] [place] [address] Care Team Providers Care Fire Prevention Inspector Name Role Phone Jenny Hendrix Primary Care Provider Unavailab Torres Grullon [phone] REASON FOR VISIT r/f omeprazole Encounters Encounter Location Date Provider Diagnosis [facility] [address] [place] [address] 08/02/2024 Torres Tomlinson Plan Of Treatment Next Appt Details Provider Name:Torres Tomlinson , 11/23/2024 03:00:00 PM, [address], [address], [place], [address], Progress Notes * ARLEEN WALLACEOB:[birth year] (28 yo F)Acc No.[id number]:08/02/2024 Patient:?DIEGO WALLACE :1995???Age:28 Y???Sex:Female Address:[address] [place] [address], [place], [address] * true * Date:? Generated for Printi ng/Fajoeg/eTransmitting on:?08/30/2024 06:23 PM EDT
--- OUTSIDE RECORDS SUMMARY | 2024-08-30 18:24 | XMS_ITS ---
Author Organization [facility] Address [address] [place] [address] Care Team Providers Care Circuit Tester Name Role Phone Jenny Hendrix Primary Care Provider Unavailab Torres Grullon [facility] [phone] REASON FOR VISIT Patient presents today for elevated lft's Encounters Encounter Location Date Provider Diagnosis [facility] [address] [place] [address] 05/20/2024 Torres Tomlinson Plan Of Treatment Next Appt Details Provider Name:Torres Tomlinson , 11/23/2024 03:00:00 PM, [address], [address], [place], [address], Progress Notes * RONALD WALLACEIREDOB:[birth year] (28 yo F)Acc No.[id number]:05/20/2024 Progress Notes Patient:?DIEGO WALLACE Provider:?Torres Tomlinson MD :1995???Age:28 Y???Sex:Female D ate:05/20/2024 Address:[address] [place], [place] [id number] Pcp:SKIP Bass Subjective: * Chief Complaints: * ???1. Patient presents today for elevated lft's. * Medical History:? Objective: * Vitals:? Assessment: Plan: * Treatment: * * The named appointment provid er may or may not be the originator of this progress note, and it is not deemed complete until electronically signed by the appointment provider. Sign off status: Pending * Provider:Christine Tomlinson MD Date:? 025 Generated for Jhon card/Kishan/Kathy on:?08/30/2024 06:24 PM EDT
--- OUTSIDE RECORDS SUMMARY | 2024-08-30 18:24 | XMS_ITS ---
Author Organization [facility] Address [address] [place] [address] Care Team Providers Care Vegetable Cutter Name Role Phone Jenny Hendrix Primary Care Provider Unavailab Torres Grullon Unavailable [phone] REASON FOR VISIT Pt no show Encounters Encounter Location Date Provider Diagnosis [facility] [address] [place] [address] 05/20/2024 Torres Tomlinson Plan Of Treatment Next Appt Details Provider Name:Torres Tomlinson , 11/23/2024 03:00:00 PM, [address], [address], [place], [address], Progress Notes * ARLEEN WALLACEOB:[birth year] (28 yo F)Acc No.[id number]:05/20/2024 Patient:?DIEGO WALLACE :1995???Age:28 Y???Sex:Female Address:[address] [place] [address], [place], [address] * true * Date:? Generated for Printi ng/Fajoeg/eTransmitting on:?08/30/2024 06:23 PM EDT
== END 2024-08-30 15:54 | disposition home or self-care (01) ==
LOC: HO.RHE 15:04
PROVIDERS: PCP Physician Assistant; Visit Provider Student in an Organized Health Care Education/Training Program
DX: M45.A0 Non-radiographic axial spondyloarthritis of unspecified sites in spine (principal); G62.89 Other specified polyneuropathies; M70.62 Trochanteric bursitis, left hip; Z51.81 Encounter for therapeutic drug level monitoring; Z79.620 Long term (current) use of immunosuppressive biologic
CPT/HCPCS: 20610; 99214

== ENCOUNTER → 2024-08-30 15:04 | Outpatient (BNVA) | payer BC, SELFPAY | PROVIDERS: PCP Physician Assistant; Visit Provider Student in an Organized Health Care Education/Training Program | DX: M45.A0 Non-radiographic axial spondyloarthritis of unspecified sites in spine (principal); G62.9 Polyneuropathy, unspecified; M70.62 Trochanteric bursitis, left hip; Z51.81 Encounter for therapeutic drug level monitoring; Z79.620 Long term (current) use of immunosuppressive biologic | CPT/HCPCS: 20610; J3300 ==

== ENCOUNTER 2024-09-01 13:04 | Outpatient (REF) | payer BC, MEDICAID, SELFPAY ==
[2024-09-01 14:03] LABS: MANUAL DIFF FLAG NO
[2024-09-01 14:27] LABS: Basophils Absolute Auto 0.1 X10*3/uL (0.0-0.2); Basophils Percent Auto 1.1 % (0-2); Eosinophils Absolute Auto 0.1 X10*3/uL (0.0-0.4); Eosinophils Percent Auto 1.4 % (0-4); Hematocrit 39.6 % (37.0-47.0); Hemoglobin 13.4 g/dl (12.0-16.0); Imm Gran Abs Auto 0.02 X10*3/uL (0.00-0.03); Imm Gran Pct Auto 0.2 % (0.0-0.4); Lymphocytes Absolute Auto 2.1 X10*3/uL (1.2-4.9); Mean Corpuscular HGB Conc 33.8 g/dl (31.0-35.0); Mean Corpuscular Volume 97.5 fL (80.0-98.0); Mean Platelet Volume 9.5 fL (9.4-12.3); Monocytes Absolute Auto 0.8 X10*3/uL (0.1-1.2); Monocytes Percent Auto 9.2 % (2-11); Neutrophils Absolute Auto 5.4 x10*3/uL (2.0-8.3); Neutrophils Percent Auto 63.1 % (45-73); Platelet Count 303 X10*3/uL (160-400); Red Blood Count 4.06 X10*6/uL (4.20-5.50); Red Cell Distribution Width 12.9 % (11.0-16.0); White Blood Count 8.5 X10*3/uL (4.8-10.8)
[2024-09-01 14:58] LABS: Alanine Aminotransferase 108 U/L (0-31); Albumin Level 4.3 g/dL (3.5-5.0); Alkaline Phosphatase 121 U/L (39-117); Anion Gap 15 (12-20); Aspartate Amino Transferase 111 U/L (5-31); Bilirubin Total 0.5 mg/dL (0.0-1.0); Blood Urea Nitrogen 12 mg/dL (9-16); C Reactive Protein 0.47 mg/dL (< or = 0.50); Calcium 9.5 mg/dL (8.4-10.2); Carbon Dioxide 27 mmol/L (22-29); Chloride 103 mmol/L (96-108); Estimated Glomerular Filt Rate > 60; Glucose Random 103 mg/dL (60-115); Potassium 3.5 mmol/L (3.3-5.1); Sodium 141 mmol/L (135-145); Total Protein 8.2 g/dL (6.5-8.0)
[2024-09-01 15:14] LABS: Erythrocyte Sedimentation Rate 23 MM/HR (0-20)
--- OUTSIDE RECORDS SUMMARY | 2024-09-01 16:05 | XMS_ITS | Encounter Summary ---
Author Organization [facility] Address [address] [place] [address] Phone Care Team Providers Care Life Skills Coordinator Name Role Phone Christiano Park MD Primary Care Provider [phone] Encounter Details Date Type Department Care Team (Late st Contact Info) Description 09/12/2010 Conversion Encounter [facility] [address] [place] [address] [place] [address] Social History Tobacco Use Types Packs/Day Years [...] on filedocumented in this encounter Care Teams Life Skills Coordinator Relationship Specialty Start Date End Date Christiano Park MD [address] [place] [address] [place] [address] PCP - General Pediatrics 10/26/20 documented as of this encounter
--- OUTSIDE RECORDS SUMMARY | 2024-09-01 16:05 | XMS_ITS | Clinical Summary ---
Author Organization Patient Business Ser [facility] Address [address] [place] [address] Care Team Providers Care Termite Treater Name Role Phone Unavailable Primary Care Provider [...]
--- OUTSIDE RECORDS SUMMARY | 2024-09-01 16:05 | XMS_ITS ---
Author Organization [facility] Address [address] [place] [address] Care Team Providers Care Mobile Home Installer Name Role Phone Jenny Hendrix Primary Care Provider Unavailab Torres Grullon [phone] REASON FOR VISIT r/f omeprazole Encounters Encounter Location Date Provider Diagnosis [facility] [address] [place] [address] 08/02/2024 Torres Tomlinson Plan Of Treatment Next Appt Details Provider Name:Torres Tomlinson , 11/23/2024 03:00:00 PM, [address], [address], [place], [address], Progress Notes * ARLEEN WALLACEOB:[birth year] (28 yo F)Acc No.[id number]:08/02/2024 Patient:?DIEGO WALLACE :1995???Age:28 Y???Sex:Female Address:[address] [place] [address], [place], [address] * true * Date:? Generated for Printi ng/Fajoeg/eTransmitting on:?09/01/2024 04:05 PM EDT
--- OUTSIDE RECORDS SUMMARY | 2024-09-01 16:05 | XMS_ITS | Encounter Summary ---
Author Organization [facility] Address [address] [place] [address] Phone Care Team Providers Care Second Hand Paper Machine Name Role Phone Christiano Park MD Primary Care Provider + [phone] Reason for Visit * Reason Comments Med Refill Encounter Details Date Type Department Care Team ([facility] st Contact Info) Description 06/30/2021 Refill [facility] [address] [place] [address] [place] [address] Christiano Park MD [address] [place] [address] [place] [address] Generalized anxiety disorder Social History Tobacco Use [...] disorder documented in this encounter Care Teams Second Hand Paper Machine Relationship Specialty Start Date End Date Christiano Park MD [facility] [place] [address] PCP - General Pediatrics 10/26/20 documented as of this encounter
--- OUTSIDE RECORDS SUMMARY | 2024-09-01 16:05 | XMS_ITS | Encounter Summary ---
Author Organization [facility] Address [address] [place] [address] Phone Care Team Providers Care Technologies Division Chair Name Role Phone Christiano Park MD Primary Care Provider + [phone] Reason for Visit * Reason Comments Med Refill Encounter Details Date Type Department Care Team ([facility] st Contact Info) Description 06/28/2021 Refill [facility] [address] [place] [address] [place] [address] Christiano Park MD [address] [place] [address] [place] [address] Essential hypertension Social History Tobacco Use Types [...] hypertension documented in this encounter Care Teams Technologies Division Chair Relationship Specialty Start Date End Date Christiano Park MD [facility] [place] [address] PCP - General Pediatrics 10/26/20 documented as of this encounter
--- OUTSIDE RECORDS SUMMARY | 2024-09-01 16:05 | XMS_ITS ---
Author Organization [facility] Address [address] [place] [address] Care Team Providers Care Sulfonation Equipment Operator Name Role Phone Jenny Hendrix Primary Care Provider Unavailab Torres Grullon Unavailable [phone] REASON FOR VISIT Pt no show Encounters Encounter Location Date Provider Diagnosis [facility] [address] [place] [address] 05/20/2024 Torres Tomlinson Plan Of Treatment Next Appt Details Provider Name:Torres Tomlinson , 11/23/2024 03:00:00 PM, [address], [address], [place], [address], Progress Notes * ARLEEN WALLACEOB:[birth year] (28 yo F)Acc No.[id number]:05/20/2024 Patient:?DIEGO WALLACE :1995???Age:28 Y???Sex:Female Address:[address] [place] [address], [place], [address] * true * Date:? Generated for Printi ng/Fajoeg/eTransmitting on:?09/01/2024 04:05 PM EDT
--- OUTSIDE RECORDS SUMMARY | 2024-09-01 16:05 | XMS_ITS | Encounter Summary ---
Author Organization [facility] Address [address] [place] [address] Phone Care Team Providers Care Welding Teacher Name Role Phone Christiano Park MD Primary Care Provider [phone] Reason for Visit * Reason Comments Med Refill Encounter Details Date Type Department Care Team (Late st Contact Info) Description 02/09/2018 Refill [facility] [address] [place] [address] [place] [address] Christiano Park MD [address] [place] [address] [place] [address] Generalized anxiety disorder Social History Tobacco Use [...] disorder documented in this encounter Care Teams Welding Teacher Relationship Specialty Start Date End Date Christiano Park MD [address] [place] [address] [place] [address] PCP - General Pediatrics 10/26/20 documented as of this encounter
--- OUTSIDE RECORDS SUMMARY | 2024-09-01 16:05 | XMS_ITS | Clinical Summary ---
Author Organization [facility] Address [address] [place] [address] Phone Care Team Providers Care Hip Hop Performers Name Role Phone Christiano Park MD Primary Care Provider [phone] Allergies Active Allergy Reactions Criticality Noted Date [...] 9:30 AM EDT): Continue follow up with administrative tech for GI issues. Assessment & Plan (07/10/2020 4:29 PM EST): DOS 06/21/2020 ?? CC Ileitis ?? Assessment: Ileitis, elevated liver function tests, abdominal pain, diarrhea, abdominal CT scan-colon ?? Treatment: Ileitis- budesonide, Pentasa Capsule extended release Continue omeprazole, imodium for diarrhea Assessment & Plan (06/12/2020 4:32 PM EST): 06/07/20 Torres Tomlinson MD ?? CC:?Crohns Disease ?? Patient seen in [facility] and referred to [...] complete this topic Procedures * Due to [place] [employer] law, this organization might not be sharing sensitive test results. Procedure Name Priority Date/Time Associated Diagnosis Comments CHLAMYDIA GC AMP PROBE Routine 11/23/2020 4:43 PM EDT STD (female) from Last 3 Months or Most Recently Relevant to Health Maintenance Results * Due to [place] [employer] law, this organization might not be sharing sensitive test results. * CHLAMYDIA GC AMP PROBE (11/23/2020 4:43 PM EDT) Chlamydia Trachomatis, Amplified NEGATIVE (NEG) [facility] Comment: No Chlamydia Trachomatis RNA detected in this patient's sample ? (REFERENCE RANGE/NORMAL VALUE: NOT DETECTED) ? Note: This test uses surveillance systems analyst- mediated amplification method to detect rRNA from C. Trachomatis N.GONORRHOEAE AMP PROBE NEGATIVE (NEG) [facility] Comment: No Neisseria Gonorrhoeae RNA detected in this patient's sample ? (REFERENCE RANGE/NORMAL VALUE: NOT DETECTED) ? NOTE: This test uses surveillance systems analyst-mediated amplification method to detect rRNA from N.Gonorrhoeae. [...] without risk of sexual abuse. Consult the [facility] if needed. Contact [...] CHLAM/GC AMP PROBE SPEC TYPE VAGINAL SPECIMEN [facility] Comment: Testing performed or reported by [facility], a Service of [facility], [address] [place] [id number] Tomer Morales MD, Rubber Mill Operator Swab (Vagina) 11/23/2020 4:4 3 PM EDT 11/23/2020 11:48 PM EDT us Christiano Park MD LAB MICROBIOLOGY - GENERAL O RDERABLES Final Result [facility] from Last 3 Months or Most Recently Relevant to Health Maintenance Insurance [facility] Care Teams Hip Hop Performers Relationship Specialty Start Date End Date Christiano Park MD [address] [place] [address] [place] [address] PCP - General Pediatrics 10/26/20
--- OUTSIDE RECORDS SUMMARY | 2024-09-01 16:05 | XMS_ITS ---
Author Organization [facility] Address [address] [place] [address] Care Team Providers Care Telecommunications Facility Examiner Name Role Phone Jenny Hendrix Primary Care Provider Unavailab Torres Grullon [facility] [phone] REASON FOR VISIT Patient presents today for elevated lft's Encounters Encounter Location Date Provider Diagnosis [facility] [address] [place] [address] 05/20/2024 Torres Tomlinson Plan Of Treatment Next Appt Details Provider Name:Torres Tomlinson , 11/23/2024 03:00:00 PM, [address], [address], [place], [address], Progress Notes * RONALD WALLACEIREDOB:[birth year] (28 yo F)Acc No.[id number]:05/20/2024 Progress Notes Patient:?DIEGO WALLACE Provider:?Torres Tomlinson MD :1995???Age:28 Y???Sex:Female D ate:05/20/2024 Address:[address] [place], [place] [id number] Pcp:SKIP Bass Subjective: * Chief Complaints: * ???1. Patient presents today for elevated lft's. * Medical History:? Objective: * Vitals:? Assessment: Plan: * Treatment: * * The named appointment provid er may or may not be the originator of this progress note, and it is not deemed complete until electronically signed by the appointment provider. Sign off status: Pending * Provider:?Torres Tomlinson MD Date:? 025 Generated for Jhon card/Kishan/Kathy on:?09/01/2024 04:05 PM EDT
--- OUTSIDE RECORDS SUMMARY | 2024-09-01 16:05 | XMS_ITS | Encounter Summary ---
Author Organization [facility] Address [address] [place] [address] Phone Care Team Providers Care Car Clerk Pullman Name Role Phone Christiano Park MD Primary Care Provider + [phone] Reason for Visit * Reason Onset Date Comments Med Refill Med Refill 03/18/2021 Encounter Details Date Type Department Care Team (Late st Contact Info) Description 03/18/2021 Refill [facility] [address] [place] [address] [place] [address] Al Eagle MD [address] [place] [address] [place] [address] Essential hypertension Social History Tobacco Use Types [...] Dubon [place] - 03/18/2021 2:01 PM EDT [facility] 12/14/20 documented in this encounter Plan of Treatment Not on file documented as of this encounter Visit Diagnoses Diagnosis Essential hypertension Unspecified essential hypertension documented in this encounter Care Teams Car Clerk Pullman Relationship Specialty Start Date End Date Christiano Park MD [facility] [facility] [place] [address] PCP - General Pediatrics 10/26/20 documented as of this encounter
--- OUTSIDE RECORDS SUMMARY | 2024-09-01 16:06 | XMS_ITS | Patient Health Record ---
Author Organization [facility] Address [address] [place] [address] Care Team Providers Care Transportation Lead Name Role Phone Jenny Hendrix Primary Care Provider Unavailab Torres Grullon Unavailable [phone] Allergies Allergen (clinical drug ingredient) Drug/Non Drug [...] TABLET BY MOUTH DAILY Oral for 84 A09358,Unav ailable Active Pentasa 500 MG 2 capsules [...] Status W/U Status Risk Notes Problem Diarrhea (23757444) Diarrhea (R19.7) Active confirmed Problem Ileitis (74000989) Ileitis (K52.9) Active confirmed Problem 835220007 Irritable bowel syndrome with diarrhea (K58.0) Active confirmed Problem Epigastric pain (52647926) Abdominal pain, epigastric (R10.13) Active confirmed Problem Elevated liver enzymes level (591647270) Elevated liver function tests (R79.89) Active confirmed Problem 876781014 Fatty liver (K76.0) Active confirmed Problem 21971200 Alcoholic liver disease (K70.9) Active confirmed Problem Hiatal hernia (49569632) Hiatal hernia (K44.9) Active confirmed Problem Computed tomography result abnormal (885243213) Abnormal CT scan, colon (R93.3) Active confirmed Problem Gastroesophageal reflux disease (190405193) GERD (gastroesophag eal reflux disease) (K21.9) Active confirmed Encounters Encounter Location Date Provider Diagnosis [facility] [address] [place] [address] 01/11/2024 Torres Tomlinson [facility] [address] [place] [address] 05/20/2024 Torres Bushra [facility] [address] [place] [address] 08/02/2024 Torres Tomlinson Plan Of Treatment Pending [...] [address], [address], [place], [address], Insurance Providers Payer Name Payer Address Payer Phone Subscriber Number Group Number Insured Name Patient Relationship to Insured Coverage Start Date Coverage End Date [facility] [address] [place] [address] [phone] [id number] DIEGO WALLACE Self - patient is the insured Medical (General) History Medical History History ICD Code Hypertension--on no meds Denies GA,DM,CVA,Lung disease,renal dise ase GERD-EGD 05/2020 revealed a [...]
[2024-09-02 07:53] LABS: HBS Num1 0.12 mIU/mL (0-7.99); HBc Num1 0.11 S/CO (0.00-0.79); HBsAGNum1 0.31 S/CO (0.00-0.99); Hepatitis B Core Antibody Nonreactive (Nonreactive); Hepatitis B Surface Antigen Negative (Negative); ~HepC Num1 0.14 S/CO (0.00-0.79); ~Hepatitis B Surface Antibody NONREACTIVE (Nonreactive); ~Hepatitis C Antibody Nonreactive (Nonreactive)
[2024-09-03 23:43] LABS: TS Negative Control Passed; TS Panel A 1; TS Panel B 0; TS Positive Control Passed; TSpotTB Negative (Negative)
[2024-09-06 08:59] LABS: Hepatitis A Antibody IgM 0.85 Index (0-0.79)
[2024-09-08 09:16] LABS: ~Hepatitis A Antibody IgM GRAYZONE (Nonreactive)
== END 2024-09-01 13:05 | disposition home or self-care (01) ==
LOC: HO.LAB 13:04
PROVIDERS: Student in an Organized Health Care Education/Training Program; Absent Provider Nurse Practitioner Family; PCP Physician Assistant; Referring Provider Student in an Organized Health Care Education/Training Program; Visit Provider Physician Assistant
DX: R00.2 Palpitations (principal); M45.A0 Non-radiographic axial spondyloarthritis of unspecified sites in spine
CPT/HCPCS: 36415; 80053; 85025; 85652; 86140; 86481; 86704; 86706; 86709; 86803; 87340; 93005

== ENCOUNTER 2024-09-01 13:19 | Outpatient (AMB) | payer BC, SELFPAY ==
--- NOTE | 2024-09-01 13:21 | MHC.OFFVIS ---
Vital Signs 09/01/24 13:25 Height 5 ft 3 in Weight 212 lb 15.465 oz BMI 37.7 BP 150/90 H Blood Pressure Location Lt brachial Position Sitting Pulse 102 H Pulse Source Monitor Intake Visit Reasons: CUSTOMER QUALITY SPECIALIST/Wilkinson/Palpitations Certified Registered Nurse Practitioner Required: No Accompanied by: Self / Same As Patient Allergies shellfish derived [SHELLFISH DERIVED] Allergy (Severe, Verified 08/30/24 15:11) ANGIOEDEMA Medication List - Last Reconciled 09/01/24 by Michael Browne MD alpha lipoic acid 600 mg PO DAILY blood pressure monitor As directed clobetasol 0.05% 1 appl topical DAILY 2 weeks clobetasol 0.05% 1 appl topical BID 2 weeks cyclobenzaprine 10 mg PO BID PRN 30 days dicyclomine 10 mg PO BID PRN gabapentin 1,200 mg PO TID Humira(CF) Pen (adalimumab) 40 mg (0.4 mL) subcut Q2W NS hydroxyzine HCl 25 mg PO DAILY PRN 90 days levothyroxine 25 mcg PO DAILY metoprolol succinate ER 25 mg PO DAILY norethindrone (contraceptive) 0.35 mg PO DAILY omeprazole 20 mg PO DAILY spironolactone 25 mg PO BID trazodone 50 mg PO DAILY PRN HPI Comments Details: The patient is a 28-year-old female presenting with palpitations and sleep disturbances. She reports nocturnal awakenings with an inability to breathe, alongside palpitations, which contributed to her PCP's referral and subsequent cardiac evaluations. Her symptomatology includes exacerbations following a Crohn's Disease diagnosis in 2020 and a possible antecedent COVID-19 infection in 2019, which augmented the severity of her conditions. She experiences widespread pain, potentially due to Crohn's, rheumatoid arthritis, and neuropathy affecting her extremities, which remains persistent despite pharmacotherapy with Humira and Gabapentin. The patient's history includes previously heavy alcohol and tobacco use, for which she is currently undergoing lifestyle changes. No prior cardiac history. With regard to palpitations, can happen any time when she feels her heart racing. No angina. Some shortness of breath with activity likely due to the above comorbidities. [facility] Medical History (Updated 09/01/24 @ 13:57 by Michael Browne MD) Crohn's disease Prediabetes Screening for hypothyroidism Screening for hyperlipidemia Hypertension Surgical History History of colonoscopy History of esophagogastroduodenoscopy (EGD) Family History Father GERD (gastroesophageal reflux disease) Mother History of cancer Family history of arthritis Rheumatoid arthritis Maternal Grandfather Prostate cancer Maternal Aunt Breast cancer Other Mental health disorder Substance use disorder Social History Housing: House Alcohol intake: current Alcohol intake frequency: holidays/special occasions only Patient Tobacco Use Status: Current someday Tobacco user Tobacco use type: Cigarette Cigarettes Per Day: 3 Years Smoked: 3 e-Cigarette/Vaping Use: Former Use Second Hand Smoke Exposure: Yes service: No Current occupational status: employed 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 Current occupational exposures/hazards: No Cognitive needs: No Hearing needs: No Vision needs: No Review of Systems Const Denies chills, Denies fatigue, Denies fever(s), Denies frequent falls, Denies weakness, Denies weight gain and Denies weight loss ENT Denies dizziness Card Denies chest pain, Denies leg edema, Denies lightheadedness, Reports palpitations, Reports dyspnea, Reports dyspnea on exertion and Reports orthopnea Resp Denies cough, Reports dyspnea and Reports dyspnea on exertion GI Denies bloating and Denies change in bowel habits Musc Denies muscle weakness, Denies numbness and Denies tingling Neuro Denies dizziness, Denies frequent falls, Denies numbness, Denies tingling and Denies weakness Endo Denies fatigue and Reports palpitations Physical Exam Vital Signs: Last Vital Signs Pulse 102 H 09/01/24 13:25 BP 150/90 H 09/01/24 13:25 BMI result Body Mass Index 37.7 Const General: comfortable and no acute distress Orientation/consciousness: patient oriented x3 HEENT Other: Unremarkable Head: Yes normal to inspection Neck Neck: Yes normal visual inspection Chest Chest palpation & inspection: normal inspection of the chest Resp Auscultation: clear to auscultation bilaterally Cardio Palpation: normal PMI Heart sounds: S1 normal heart sound present, S2 normal heart sound present, no gallops, no murmurs and no rubs GI Palpation (GI): Soft to palpation Back/Spine/Pelvis Other: unremarkable Skin General skin exam: no rashes or lesions noted Neuro General: patient oriented x3 Extrem General: Yes normal to inspection Psych Mental Status: mental status grossly normal Office Procedures EKG Details: EKG with sinus tachycardia; 102/Min; rightward axis; no significant ST-T changes and otherwise unremarkable[place] [address]Njuxwuvxdrluznnid, Complete Assessment & Plan Assessment & Plan (1) Palpitations: Code(s): R00.2 - Palpitations Category: Medical (2) Sinus tachycardia: Code(s): R00.0 - Tachycardia, unspecified Category: Medical Plan Baseline EKG shows sinus tachycardia. Echocardiogram with LVEF of 55-60%. Mild diastolic dysfunction. No significant valvular findings. Holter shows underlying sinus rhythm with an average rate of 105/Min. Frequent sinus tachycardia. Overall, suspect sinus tachycardia likely multifactorial. Could be related to some combination of underlying inflammation, autoimmune disease, Crohn's, obesity, lifestyle. She is already on metoprolol. As the blood pressure is also slightly on the higher side, we can go up on the beta-jimenez dosing. With regard to symptoms of waking up at night with shortness of breath, possible obstructive sleep apnea. Check home sleep study. Follow-up after that. Discussion Notes I discussed with the patient the potential link between her palpitations and sleep apnea and the rationale for a sleep study. We reviewed how untreated sleep apnea can provoke cardiovascular complications. Increasing Metoprolol was explored, detailing how it modulates her heart rate, helping control tachycardic instances secondary to systemic inflammation. The importance of lifestyle changes concerning smoking and drinking was underscored, highlighting their relevance as stimulants exacerbating her conditions. We agreed she should contact me should her symptoms intensify or if any adverse reactions occur with the medication adjustment. A proactive multidisciplinary approach involving existing rheumatology and gastroenterology evaluations was advised. Consent for this plan, including the sleep study, was obtained. Patient was informed and verbally consented to the use of an ambient scribe for clinic note documentation during this visit. Orders: Orders RT home sleep study Today G47.33 - Obstructive sleep apnea (adult) (pediatric) Medications: New metoprolol succinate ER (Toprol XL) 50 mg PO DAILY 90 tabs 1RF Discontinued metoprolol succinate ER Discontinued Reason: Doctor's Order 25 mg PO DAILY 30 tabs 0RF I10 - Essential (primary) hypertension Patient Instructions: - Increase Metoprolol dosage as instructed; keep 25 mg as backup. - Schedule and complete a home-based sleep study for sleep apnea evaluation. - Avoid smoking and limit alcohol consumption to promote heart health. - Monitor blood pressure regularly and keep a record for follow-up discussions. - Report any unusual heart symptoms or adverse side effects promptly. - Maintain current medications for Crohn's and neuropathy as prescribed by specialists. - Engage in gentle physical activity as tolerated to improve conditioning. - Follow up with rheumatology and gastroenterology as scheduled. - Seek immediate care if you experience chest pain or severe difficulty breathing. Coding Level of Care Code New Pt Level 4 (59430) Diagnoses Palpitations R00.2 Sinus tachycardia R00.0 CPT Codes EKG - CPT: 83311-Qcxaychpowxclwafv, Complete ([id number])
[2024-09-01 13:25] VITALS: BP 150/90; PULSE 102; BMI 37.7
== END 2024-09-01 13:47 | disposition home or self-care (01) ==
LOC: HO.HCS 13:19
PROVIDERS: Visit Provider Internal Medicine
DX: R00.2 Palpitations (principal); R00.0 Tachycardia, unspecified
CPT/HCPCS: 93010; 99214

== ENCOUNTER 2024-09-14 14:23 | Outpatient (AMB) | payer BC, SELFPAY ==
--- NOTE | 2024-09-14 14:28 | MHC.PC.OV ---
Vital Signs 09/14/24 14:32 Height 5 ft 3 in Weight 212 lb 4 oz BMI 37.6 BP 124/88 Blood Pressure Location Lt brachial Position Sitting Pulse 98 Pulse Source Pulse Oximeter Pulse Oximetry (%) 95 Oxygen Delivery Method Room Air Intake Visit Reasons: Follow up Intake Note: Follow up Having sleep study in October or November. Allergies shellfish derived [SHELLFISH DERIVED] Allergy (Severe, Verified 09/14/24 14:38) ANGIOEDEMA Medication List - Last Reconciled 09/14/24 by Jenny Wilkinson PA-C alpha lipoic acid 600 mg PO DAILY blood pressure monitor As directed dicyclomine 10 mg PO BID PRN gabapentin 1,200 mg PO TID Humira(CF) Pen (adalimumab) 40 mg (0.4 mL) subcut Q2W NS hydroxyzine HCl 25 mg PO DAILY PRN 90 days levothyroxine 25 mcg PO DAILY metoprolol succinate ER (Toprol XL) 50 mg PO DAILY norethindrone (contraceptive) 0.35 mg PO DAILY omeprazole 20 mg PO DAILY spironolactone 25 mg PO BID tramadol 50 mg PO BID PRN trazodone 50 mg PO DAILY PRN Tobacco use date assessed: 09/14/24 Dental Screening Dental Screen Date: 09/14/24 Did you have a dental visit in the last 12 months?: No Did you have a dental problem in the last 6 months where you did not have access to dental care?: No Was dental information given to patient?: Patient declined HPI Follow up HPI Details Patient is a 28-year-old female who presents today for a follow up. CV: Dx with htn at the age of 24. She is on spironolactone 25 mg BID, metoprolol 50 mg daily for blood pressure control. Her blood pressure today in the office is 124/88. She is scheduled for a sleep study. Endo: She is now following with endo for cushingoid features, hyperparathyroidism and hypothyroid. She is on levothyroxine. GI: She has an appointment with Dr. Tomlinson in October 2024. Her LFTs are still elevated. She has known hepatomegaly and fatty liver. She tells me that she started drinking alcohol again and quit 13 days ago. She is still on Bentyl, omeprazole and was recently restarted on Humira again after being off of this due to insurance issues. Rheum: She is following with Rheumatology in is on Humira. Msk: following with physiatry for injections. 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 Pysch: Trazodone has been helpful for the insomnia. She takes it as needed. She has an increase in anxiety and depression and attributes this to his current life. She is having relationship issues and financial issues. Her job recently let her go with a severance. She was requesting a lot of accommodations and states that her stockfeed miller fault for her but ultimately, she was released. She is filing for [employer] disability. [facility] Medical History (Updated 09/14/24 @ 15:11 by Jenny Wilkinson PA-C) Crohn's disease Prediabetes Screening for hypothyroidism Screening for hyperlipidemia Hypertension Surgical History History of colonoscopy History of esophagogastroduodenoscopy (EGD) Family History Father GERD (gastroesophageal reflux disease) Mother History of cancer Family history of arthritis Rheumatoid arthritis Maternal Grandfather Prostate cancer Maternal Aunt Breast cancer Other Mental health disorder Substance use disorder Social History (Updated 09/14/24 @ 14:39 by Alessandra Alaniz [facility]) Housing: House Alcohol intake: current Alcohol intake frequency: holidays/special occasions only Patient Tobacco Use Status: Former Tobacco user Tobacco use type: Cigarette Cigarettes Per Day: 3 Years Smoked: 3 e-Cigarette/Vaping Use: Former Use Second Hand Smoke Exposure: Yes service: No Current occupational status: employed 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 1. Little interest or pleasure in doing things: not at all 2. Feeling down, depressed, or hopeless: nearly every day 3. Trouble falling or staying asleep, or sleeping too much: nearly every day 4. Feeling tired or having little energy: nearly every day 5. Poor appetite or overeating: nearly every day 6. Feeling bad about yourself - or that you are a failure or have let yourself or your family down: nearly every day 7. Trouble concentrating on things, such as reading the newspaper or watching television: nearly every day 8. Moving or speaking so slowly that other people could have noticed. Or the opposite - being so fidgety or restless that you have been moving around a lot more than usual: nearly every day 9. Thoughts that you would be better off or of hurting yourself in some way: not at all Total score: 21 Depression Screening Interpretation: Positive Depression Screening Follow-up: Existing condition, In treatment and Community Mental Health Worker F/U Depression Screening Done: Yes 24813 - PHQ-9 Billing: Yes Source: Developed by Drs. Torres Gabriel, Kiana Mena, Willi Ponce and colleagues, with an educational gordon from [employer]. Thrive Questionnaire Date Thrive assessed: 08/09/24 I am a: Patient What is your living situation today?: I have a place to live, but I am worried about losing it in the future Within the past 12 months, did the food you bought not last and you didn't have the money to get more?: Sometimes True Within the past 12 months, did you worry whether your food would run out before you got money to buy more?: Sometimes True Do you have trouble paying for medicines?: Yes Do you have trouble getting transportation to medical appointments?: No Do you have trouble paying your heating and electricity bill?: Yes Do you have trouble taking care of your child, family member or friend?: No Do you have trouble with day-to-day activities such as bathing, preparing meals, shopping, managing finances, etc.?: Yes Are you currently unemployed and looking for a job?: Yes Are you interested in more education?: Yes Currently or been in a relationship where the following occur: I choose not to answer THRIVE Score: 4 AUDIT C Alcohol Use Questionnaire (AUDIT-C) 1. How often do you have a drink containing alcohol?: Never 3. How often do you have six or more drinks on one occasion?: Never Total Score: 0 BLAYNE-7 AMB Questionnaire BLAYNE-7 Date BLAYNE - 7 assessed: 12/24/23 Source: Developed by Drs. Torres Gabriel, Willi Pineda and colleagues, with an educational gordon from [employer] Physical exam (Primary Care) Vital Signs: Last Vital Signs Pulse 98 09/14/24 14:32 BP 124/88 09/14/24 14:32 Pulse Ox 95 09/14/24 14:32 Oxygen Delivery Method Room Air 09/14/24 14:32 BMI result Body Mass Index 37.6 Tobacco/Smoking Status: Tobacco use Status Tobacco use date assessed 09/14/24 09/14/24 14:39 Patient Tobacco Use Status Former Tobacco user 09/14/24 14:39 Tobacco use type Cigarette 09/14/24 14:39 e-Cigarette/Vaping Use Former Use 09/14/24 14:39 PHQ-9: PHQ-9 Score PHQ-9: Total score 21 09/14/24 14:39 Depression Screening Interpretation: Positive Depression Screening Follow-up: Existing condition, In treatment and Community Mental Health Worker F/U Thrive Assessment: Date of Thrive Assessment Date Thrive assessed 08/09/24 09/14/24 14:39 Currently or been in a relationship where the following occur: I choose not to answer Const Orientation/consciousness: patient oriented x3 HENMT Ears: hearing grossly normal bilaterally Neck Thyroid: Thyroid normal Lymphatic: no lymphadenopathy noted Resp Auscultation: clear to auscultation bilaterally Cardio Rate: regular rate Rhythm: regular rhythm Heart sounds: S1 normal heart sound present and S2 normal heart sound present GI Inspection: Yes normal to inspection Palpation (GI): Soft to palpation and Other GI palpation findings present (nontender, no cva tenderness) Auscultation: normoactive bowel sounds Rectal Exam - Female: deferred Skin General skin exam: no rashes or lesions noted Neuro General: patient oriented x3, gait normal and no focal motor deficits Results Reviewed Results Reviewed: MRI LIVER, GALLBLADDER, AND BILIARY TREE: Liver measures 22 cm. No enhancing lesion. No intrahepatic biliary ductal dilatation. Portal veins, hepatic veins and intrahepatic portion of the IVC are patent. There is a drop-off of the parenchymal signal in the in and out of phase sequences. Gallbladder is fluid-filled. No pericholecystic fluid collection or gallbladder wall thickening. Common bile duct measures 4 mm. PANCREAS: No focal mass. No peripancreatic fluid collection. No main pancreatic ductal dilatation. SPLEEN: 9 cm. No focal mass. ADRENAL GLANDS: No nodular lesions. KIDNEYS AND URETERS: Right kidney: Normal enhancement pattern of the renal parenchyma. No enhancing lesion. No hydronephrosis. Left kidney: Normal enhancing renal parenchyma. There is a 2.5 cm lobulated thin septated nonenhancing fluid signal characteristic lesion in the anterior lower pole. No hydronephrosis. No enhancing focal lesion. GASTROINTESTINAL TRACT: No intestinal obstruction pattern. Appendix is normal. No ascites. ABDOMINAL WALL: Small tiny fat-containing umbilical hernia. LYMPH NODES: No lymphadenopathy. VASCULAR: No aneurysm or dissection, abdominal aorta. OSSEOUS STRUCTURES: Disc desiccation at L5-S1. Conus medullaris ends at pedicle of L1 with normal signal. MR/MR abdomen wo/w con IMPRESSION: Bosniak type II cyst, left kidney. Hepatomegaly and steatosis. Nerve conductive study: IMPRESSION: 1. This is an abnormal study. 2. Agree with previous EMG by Dr. Ruffin that findings are suggestive of lumbar radiculopathy, bilateral L5-S1. However, neuropathy, that is primarily affecting distal motor, is not completely ruled out. Coding Level of Care Code Est Pt Level 4 (54525) Complex EM visit Add On G2211 Diagnoses Hypertension, unspecified type I10 Hypertension type: unspecified Fatty liver K76.0 Crohn's disease without complication, unspecified gastrointestinal tract location K50.90 Gastrointestinal tract location: unspecified location Digestive disease complication type: without complication Alcohol abuse F10.10 Elevated liver enzymes R74.8 Hypothyroidism, unspecified type E03.9 Hypothyroidism type: unspecified Severe episode of recurrent major depressive disorder, without psychotic features F33.2 Depression Type: major depressive disorder Major depression recurrence: recurrent Active/Remission status: currently active Major depression episode severity: severe Psychotic features: without psychotic features Additional Codes PHQ-9 - 49710 - PHQ-9 Billing: Yes ([id number]) Assessment & Plan Assessment & Plan (1) Hypertension: Code(s): I10 - Essential (primary) hypertension Category: Medical Qualifiers: Hypertension type: unspecified Qualified Code(s): I10 - Essential (primary) hypertension Plan: Continue current regimen (2) Fatty liver: Code(s): K76.0 - Fatty (change of) liver, not elsewhere classified Category: Medical Plan: Labs of weight loss and lifestyle modifications and advised that she needs to stay off of alcohol. (3) Crohn's disease: Code(s): K50.90 - Crohn's disease, unspecified, without complications Category: Medical Qualifiers: Gastrointestinal tract location: unspecified location Digestive disease complication type: without complication Qualified Code(s): K50.90 - Crohn's disease, unspecified, without complications Plan: As above. Follows with GI (4) Alcohol abuse: Code(s): F10.10 - Alcohol abuse, uncomplicated Category: Social Hx Plan: As above. Referral to behavioral health as well. (5) Elevated liver enzymes: Code(s): R74.8 - Abnormal levels of other serum enzymes Category: Medical Plan: We will recheck labs. (6) Hypothyroid: Code(s): E03.9 - Hypothyroidism, unspecified Category: Medical Qualifiers: Hypothyroidism type: unspecified Qualified Code(s): E03.9 - Hypothyroidism, unspecified Plan: Continue levothyroxine. TSH ordered (7) Depression: Code(s): F32.A - Depression, unspecified Category: Medical Qualifiers: Depression Type: major depressive disorder Major depression recurrence: recurrent Active/Remission status: currently active Major depression episode severity: severe Psychotic features: without psychotic features Qualified Code(s): F33.2 - Major depressive disorder, recurrent severe without psychotic features Plan: Referral to behavioral health. Advised to seek emergent medical treatment should she develop any SI/HI. Orders: Orders Liver Panel Today E03.9 - Hypothyroidism, unspecified, F10.10 - Alcohol abuse, uncomplicated, I10 - Essential (primary) hypertension, K50.90 - Crohn's disease, unspecified, without complications, K76.0 - Fatty (change of) liver, not elsewhere classified, R74.8 - Abnormal levels of other serum enzymes Basic Metabolic Panel Today E03.9 - Hypothyroidism, unspecified, F10.10 - Alcohol abuse, uncomplicated, I10 - Essential (primary) hypertension, K50.90 - Crohn's disease, unspecified, without complications, K76.0 - Fatty (change of) liver, not elsewhere classified, R74.8 - Abnormal levels of other serum enzymes Hemoglobin A1c Today E03.9 - Hypothyroidism, unspecified, F10.10 - Alcohol abuse, uncomplicated, I10 - Essential (primary) hypertension, K50.90 - Crohn's disease, unspecified, without complications, K76.0 - Fatty (change of) liver, not elsewhere classified, R73.01 - Impaired fasting glucose, R74.8 - Abnormal levels of other serum enzymes TSH reflex Free T4 Today E03.9 - Hypothyroidism, unspecified, F10.10 - Alcohol abuse, uncomplicated, I10 - Essential (primary) hypertension, K50.90 - Crohn's disease, unspecified, without complications, K76.0 - Fatty (change of) liver, not elsewhere classified, R74.8 - Abnormal levels of other serum enzymes Referrals Behavioral Health Referral F10.10 - Alcohol abuse, uncomplicated, F32.A - Depression, unspecified, F41.9 - Anxiety disorder, unspecified
[2024-09-14 14:32] VITALS: BP 124/88; PULSE 98; O2SAT 95; BMI 37.6
--- OUTSIDE RECORDS SUMMARY | 2024-09-14 15:43 | XMS_ITS | Clinical Summary ---
Author Organization Patient Business Ser [facility] Address [address] [place] [address] Care Team Providers Care Pack Train Driver Name Role Phone Unavailable Primary Care Provider [...]
--- OUTSIDE RECORDS SUMMARY | 2024-09-14 15:43 | XMS_ITS | Encounter Summary ---
Author Organization [facility] Address [address] [place] [address] Phone Care Team Providers Care Statistical Machine Mechanic Name Role Phone Christiano Park MD Primary Care Provider + [phone] Reason for Visit * Reason Onset Date Comments Med Refill Med Refill 03/18/2021 Encounter Details Date Type Department Care Team (Late st Contact Info) Description 03/18/2021 Refill [facility] [address] [place] [address] [place] [address] Al Ealge MD [address] [place] [address] [place] [address] Essential hypertension Social History Tobacco Use Types [...] Dubon [place] - 03/18/2021 2:01 PM EDT [facility] 12/14/20 documented in this encounter Plan of Treatment Not on file documented as of this encounter Visit Diagnoses Diagnosis Essential hypertension Unspecified essential hypertension documented in this encounter Care Teams Statistical Machine Mechanic Relationship Specialty Start Date End Date Christiano Park MD [facility] [place] [address] PCP - General Pediatrics 10/26/20 documented as of this encounter
--- OUTSIDE RECORDS SUMMARY | 2024-09-14 15:43 | XMS_ITS | Encounter Summary ---
Author Organization [facility] Address [address] [place] [address] Phone Care Team Providers Care Lock Corner Machine Operator Name Role Phone Christiano Park MD Primary Care Provider [phone] Reason for Visit * Reason Comments Med Refill Encounter Details Date Type Department Care Team (Late st Contact Info) Description 02/09/2018 Refill [facility] [address] [place] [address] [place] [phone] Christiano Park MD [address] [place] [address] [place] [phone] Generalized anxiety disorder Social History Tobacco Use [...] disorder documented in this encounter Care Teams Lock Corner Machine Operator Relationship Specialty Start Date End Date Christiano Park MD [address] [place] [address] [place] [address] PCP - General Pediatrics 10/26/20 documented as of this encounter
--- OUTSIDE RECORDS SUMMARY | 2024-09-14 15:43 | XMS_ITS | Encounter Summary ---
Author Organization [facility] Address [address] [place] [address] Phone Care Team Providers Care Radio News Writer Name Role Phone Christiano Park MD Primary Care Provider Encounter Details Date Type Department Care Team (Late st Contact Info) Description 09/12/2010 Conversion Encounter [facility] [address] [place] [address] [place] [phone] Social History Tobacco Use Types Packs/Day Years [...] on filedocumented in this encounter Care Teams Radio News Writer Relationship Specialty Start Date End Date Christiano Park MD [address] [place] [address] [place] [address] PCP - General Pediatrics 10/26/20 documented as of this encounter
--- OUTSIDE RECORDS SUMMARY | 2024-09-14 15:43 | XMS_ITS | Encounter Summary ---
Author Organization [facility] Address [address] [place] [address] Phone Care Team Providers Care Chef & Owner Name Role Phone Christiano Park MD Primary Care Provider + [phone] Reason for Visit * Reason Comments Med Refill Encounter Details Date Type Department Care Team ([facility] st Contact Info) Description 06/30/2021 Refill [facility] [address] [place] [address] [place] [address] Christiano Park MD [address] [place] [address] [place] [address] Generalized anxiety disorder Social History Tobacco Use [...] disorder documented in this encounter Care Teams Chef & Owner Relationship Specialty Start Date End Date Christiano Park MD [facility] [place] [address] PCP - General Pediatrics 10/26/20 documented as of this encounter
--- OUTSIDE RECORDS SUMMARY | 2024-09-14 15:43 | XMS_ITS | Encounter Summary ---
Author Organization [facility] Address [address] [place] [address] Phone Care Team Providers Care Spot Remover Name Role Phone Christiano Park MD Primary Care Provider + [phone] Reason for Visit * Reason Comments Med Refill Encounter Details Date Type Department Care Team ([facility] st Contact Info) Description 06/28/2021 Refill [facility] [address] [place] [address] [place] [address] Christiano Park MD [address] [place] [address] [place] [phone] Essential hypertension Social History Tobacco Use Types [...] hypertension documented in this encounter Care Teams Spot Remover Relationship Specialty Start Date End Date Christiano Park MD [facility] [place] [address] PCP - General Pediatrics 10/26/20 documented as of this encounter
--- OUTSIDE RECORDS SUMMARY | 2024-09-14 15:43 | XMS_ITS | Clinical Summary ---
Author Organization [facility] Address [address] [place] [address] Phone Care Team Providers Care Packing Clerk Name Role Phone Christiano Park MD Primary Care Provider [phone] Allergies Active Allergy Reactions Criticality Noted Date [...] 9:30 AM EDT): Continue follow up with logistics tech for GI issues. Assessment & Plan (07/10/2020 4:29 PM EST): DOS 06/21/2020 ?? CC Ileitis ?? Assessment: Ileitis, elevated liver function tests, abdominal pain, diarrhea, abdominal CT scan-colon ?? Treatment: Ileitis- budesonide, Pentasa Capsule extended release Continue omeprazole, imodium for diarrhea Assessment & Plan (06/12/2020 4:32 PM EST): 06/07/20 Torres Tomlinson MD ?? CC:?Crohns Disease ?? Patient seen in [facility] and referred to GI for abnormal [...] complete this topic Procedures * Due to [place] [employer] law, this organization might not be sharing sensitive test results. Procedure Name Priority Date/Time Associated Diagnosis Comments CHLAMYDIA GC AMP PROBE Routine 11/23/2020 4:43 PM EDT STD (female) from Last 3 Months or Most Recently Relevant to Health Maintenance Results * Due to [place] [employer] law, this organization might not be sharing sensitive test results. * CHLAMYDIA GC AMP PROBE (11/23/2020 4:43 PM EDT) Chlamydia Trachomatis, Amplified NEGATIVE (NEG) [facility] Comment: No Chlamydia Trachomatis RNA detected in this patient's sample ? (REFERENCE RANGE/NORMAL VALUE: NOT DETECTED) ? Note: This test uses clinic licensed practical nurse- mediated amplification method to detect rRNA from C. Trachomatis N.GONORRHOEAE AMP PROBE NEGATIVE (NEG) [facility] Comment: No Neisseria Gonorrhoeae RNA detected in this patient's sample ? (REFERENCE RANGE/NORMAL VALUE: NOT DETECTED) ? NOTE: This test uses clinic licensed practical nurse-mediated amplification method to detect rRNA from N.Gonorrhoeae. [...] without risk of sexual abuse. Consult the [facility] if needed. Contact [...] CHLAM/GC AMP PROBE SPEC TYPE VAGINAL SPECIMEN [facility] Comment: Testing performed or reported by [facility], a Service of [facility], [address] [place] [address] Tomer Morales MD, Linotype Machinist Apprentice Swab (Vagina) 11/23/2020 4:4 3 PM EDT 11/23/2020 11:48 PM EDT us Christiano Park MD LAB MICROBIOLOGY - GENERAL O RDERABLES Final Result [facility] from Last 3 Months or Most Recently Relevant to Health Maintenance Insurance [facility] Care Teams Packing Clerk Relationship Specialty Start Date End Date Christiano Park MD [address] [place] [address] [place] [address] PCP - General Pediatrics 10/26/20
== END 2024-09-14 15:07 | disposition home or self-care (01) ==
LOC: HO.HMCFM 14:23
PROVIDERS: PCP Physician Assistant; Visit Provider Physician Assistant
DX: I10 Essential (primary) hypertension (principal); K50.90 Crohn's disease, unspecified, without complications; F33.2 Major depressive disorder, recurrent severe without psychotic features; K76.0 Fatty (change of) liver, not elsewhere classified; F10.10 Alcohol abuse, uncomplicated; R74.8 Abnormal levels of other serum enzymes; E03.9 Hypothyroidism, unspecified

== ENCOUNTER → 2024-09-14 14:23 | Outpatient (BNVA) | payer BC, SELFPAY | PROVIDERS: PCP Physician Assistant; Visit Provider Physician Assistant | DX: I10 Essential (primary) hypertension (principal); K76.0 Fatty (change of) liver, not elsewhere classified; K50.90 Crohn's disease, unspecified, without complications; F10.10 Alcohol abuse, uncomplicated; R74.8 Abnormal levels of other serum enzymes; E03.9 Hypothyroidism, unspecified; F33.2 Major depressive disorder, recurrent severe without psychotic features | CPT/HCPCS: 96127 ==

== ENCOUNTER 2025-02-10 13:37 | Outpatient (REF) | payer MEDICAID, SELFPAY ==
[2025-02-10 18:07] LABS: Hematocrit 41.8 % (37.0-47.0); Hemoglobin 14.4 g/dl (12.0-16.0); Imm Gran Abs Auto 0.03 X10*3/uL (0.00-0.03); Imm Gran Pct Auto 0.4 % (0.0-0.4); Lymphocytes Absolute Auto 1.6 X10*3/uL (1.2-4.9); MANUAL DIFF FLAG NO; Mean Corpuscular HGB Conc 34.4 g/dl (31.0-35.0); Mean Corpuscular Hemoglobin 33.0 pg (27.0-33.0); Mean Corpuscular Volume 95.9 fL (80.0-98.0); NRBC Abs Auto 0.000 X10*3/uL (0.0-0.012); NRBC Pct Auto 0.0 /100WBC (0.0-0.2); Platelet Count 375 X10*3/uL (160-400); Red Blood Count 4.36 X10*6/uL (4.20-5.50); White Blood Count 8.1 X10*3/uL (4.8-10.8)
[2025-02-10 18:55] LABS: Alanine Aminotransferase 120 U/L (0-31); Albumin Level 4.6 g/dL (3.5-5.0); Alkaline Phosphatase 110 U/L (39-117); Anion Gap 14 (12-20); Aspartate Amino Transferase 122 U/L (5-31); Blood Urea Nitrogen 7 mg/dL (9-16); Calcium 9.1 mg/dL (8.4-10.2); Carbon Dioxide 30 mmol/L (22-29); Chloride 101 mmol/L (96-108); Estimated Glomerular Filt Rate > 60; Potassium 3.0 mmol/L (3.3-5.1); Sodium 142 mmol/L (135-145); Total Protein 8.1 g/dL (6.5-8.0)
== END 2025-02-10 13:38 | disposition home or self-care (01) ==
LOC: HO.HKASLDS 13:37
PROVIDERS: PCP Physician Assistant; Visit Provider Student in an Organized Health Care Education/Training Program
DX: M45.A0 Non-radiographic axial spondyloarthritis of unspecified sites in spine (principal); Z51.81 Encounter for therapeutic drug level monitoring; G62.9 Polyneuropathy, unspecified; Z79.899 Other long term (current) drug therapy; Z79.620 Long term (current) use of immunosuppressive biologic
CPT/HCPCS: 36415; 80053; 85025; 85652; 86140; 99212

== ENCOUNTER 2025-02-10 13:37 | Outpatient (AMB) | payer MEDICAID, SELFPAY ==
--- NOTE | 2025-02-10 13:51 | MHC.OFFVIS ---
Vital Signs 02/10/25 14:00 Height 5 ft 3 in Weight 206 lb 12.697 oz BMI 36.6 BP 152/90 H Blood Pressure Location Rt brachial Position Sitting Pulse 106 H Pulse Source Pulse Oximeter Pulse Oximetry (%) 96 Oxygen Delivery Method Room Air Intake Visit Reasons: Crohn's Colitis Intake Note: Patient presents for Chohn's Colitis follow up. Allergies shellfish derived (SHELLFISH DERIVED) Allergy (Severe, Verified 02/10/25 13:58) ANGIOEDEMA Medication List - Last Reconciled 02/10/25 by Candis Ng MD alpha lipoic acid 600 mg PO DAILY blood pressure monitor As directed dicyclomine 10 mg PO BID PRN gabapentin 800 mg PO TID 90 days Humira(CF) Pen (adalimumab) 40 mg (0.4 mL) subcut QWEEK NS hydroxyzine HCl 25 mg PO DAILY PRN 90 days levothyroxine 25 mcg PO DAILY metoprolol succinate ER (Toprol XL) 50 mg PO DAILY norethindrone (contraceptive) 0.35 mg PO DAILY omeprazole 20 mg PO DAILY spironolactone 25 mg PO BID tramadol 50 mg PO BID PRN trazodone 50 mg PO DAILY PRN HPI Comments Details: Patient is a 29-year-old female with allergies, hypothyroidism, hypertension, hyperlipidemia, hyperparathyroidism, Crohn's disease, GERD, depression/anxiety, and non radiographic axial spondyloarthritis here today for follow up Interval History: Patient last seen 08/30/24 with me - On Humira 40mg SC every 2 weeks - Since May has not been on Humira due to insurance issues and she has noticed worsening joint pain and swelling - Was able to start her Humira about 1 week ago. - Currently complaining of worsening neuropathy as well involving the feet and escalating to the calves - Added alpha lipoic acid - Also gave left greater trochanteric steroid injection Today - On Humira 40mg SC every 2 weeks - No improvement after the steroid injection for the greater trochanteric - Followed up with physiatry and received a nerve block, but that also did not help - Still with polyarticular joint pain Rheumatologic History: dx 10/2023 ++ASCA IgG++ASCA IgA (crohn's colitis) Humira 10/2023 Initial history: This is a 27-year-old female who presents for evaluation of diffuse pain. Back in 2020, patient presented to the hospital with abdominal pain, CT abdomen showed ileitis, colonoscopy with biopsy showed findings suggestive of inflammation, patient was started on mesalamine for presumed disease. She took it for a few months then self discontinued it. She has been following up with Gastroenterology and has not been started on any other medication for Crohn's. She states that recently she has been having lower mid back pain as well as bilateral leg nerve pain worse on the right. She was evaluated by Podiatry and no specific diagnosis was given. She was also evaluated by physiatry, L-spine MRI according to patient showed a bulging disc, right lower extremity EMG showed signs suggestive of lumbar radiculopathy. He was prescribed in 9 day course of steroid as a trial by physiatry which gave her significant relief in the 1st 3 days then as patient was tapering down her prednisone she had severe pain in her feet and she went to the emergency room. She has been having generalized swelling of her entire body. She gained about 30 lb over the last 3 years without any significant change in her diet or exercise. She also noticed reddish discoloration of her face. She has noticed some hyperpigmentation of her neck. She has significant difficulty moving her fingers. Her mother has history of RA. Patient stated that she had superficial blood clots she was on control in the past. She did not to be on a blood thinner. Current Rheumatology Medication(s): Humira 40 mg every other week [facility] Medical History (Updated 09/14/24 @ 15:11 by Jenny Wilkinson PA-C) Crohn's disease Prediabetes Screening for hypothyroidism Screening for hyperlipidemia Hypertension Surgical History History of colonoscopy History of esophagogastroduodenoscopy (EGD) Family History Father GERD (gastroesophageal reflux disease) Mother History of cancer Family history of arthritis Rheumatoid arthritis Maternal Grandfather Prostate cancer Maternal Aunt Breast cancer Other Mental health disorder Substance use disorder Social History Housing: House Alcohol intake: current Alcohol intake frequency: holidays/special occasions only Patient Tobacco Use Status: Former Tobacco user Tobacco use type: Cigarette Cigarettes Per Day: 3 Years Smoked: 3 e-Cigarette/Vaping Use: Former Use Second Hand Smoke Exposure: Yes service: No Current occupational status: employed 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 Current occupational exposures/hazards: No Cognitive needs: No Hearing needs: No Vision needs: No Review of Systems Const Details: Review of Systems Constitutional: Denies fever, chills, weight loss ENT: Denies vision changes, eye pain or eye redness, dental caries, dry mouth GI: Denies nausea, vomiting, diarrhea, abdominal pain, change in BM Pulm: Denies SOB, MCKEON, hemoptysis, wheezing Cards: Denies chest pain, palpitations Skin: Denies Raynaud's, rash, nail changes, photosensitivity, INSTRUMENT AND CONTROL TECHNICIAN: Denies headaches, weakness, paresthesias, recurrent falls MSK: as per HPI All other systems reviewed and are unremarkable except noted above Physical Exam Exam Exam: Vital signs reviewed Physical Examination CONSTITUITIONAL Patient alert and cooperative. Well appearing and in no apparent painful distress MSK Hands Right Hand: Able to make a fist. No swelling or tenderness to palpation of the MCPs, PIPs or DIPs. Left Hand: Able to make a fist. No swelling or tenderness to palpation of the MCPs, PIPs or DIPs. Some TTP of scattered MCPs Wrists Right Wrist: Full ROM to flexion and extension. No swelling or TTP Left Wrist: Full ROM to flexion and extension. No swelling or TTP Elbows Right Elbow: Full ROM. No swelling or TTP. No TTP of the medial epicondyle. No TTP of the lateral epicondyle Left Elbow: Full ROM. No swelling or TTP. No TTP of the medial epicondyle. No TTP of the lateral epicondyle Shoulders Right shoulder: No swelling noted. No TTP of the AC joint. No TTP of the subacromial bursa. No TTP of the posterior shoulder Left shoulder: No swelling noted. No TTP of the AC joint. No TTP of the subacromial bursa. No TTP of the posterior shoulder Hip bursa: Tenderness to palpation bilaterally Knees Right knee: Full ROM. No swelling noted. No TTP of the knee joint line. No TTP of pes anserine bursa Left knee: Full ROM. No swelling noted. No TTP of the knee joint line. No TTP of pes anserine bursa. Crepitations felt bilaterally Ankles Right ankle: Good ankle dorsiflexion and plantar flexion. No swelling. No TTP of the ankle joint Left ankle: Good ankle dorsiflexion and plantar flexion. No swelling. No TTP of the ankle joint Feet Right foot: Negative squeeze test Left foot: Negative squeeze test Tender points? Tenderness to palpation of the bilateral trapezius, supraspinatus, anterior costochondral junctions, bilateral suboccipital muscle insertions SKIN No rashes Vital Signs: Last Vital Signs Pulse 106 H 02/10/25 14:00 BP 152/90 H 02/10/25 14:00 Pulse Ox 96 02/10/25 14:00 Oxygen Delivery Method Room Air 02/10/25 14:00 BMI result Body Mass Index 36.6 Results Reviewed Results Reviewed: Laboratory Tests 03/30/24 09/01/24 16:03 14:01 WBC 8.5 RBC 4.06 L Hgb 13.4 Hct 39.6 Plt Count 303 ESR 18 23 H Sodium 141 Potassium 3.5 Chloride 103 Carbon Dioxide 27 BUN 12 Creatinine 0.74 AST 111 H ALT 108 H C-Reactive Protein 0.47 Laboratory Tests 09/01/24 14:01 Hepatitis A IgM Ab GRAYZONE Hep Bs Antigen Negative Hep Bs Antibody NONREACTIVE Hep B Core Total Ab Nonreactive Hepatitis C Ab (EIA) Nonreactive TB Test (T-Spot) Com Negative Assessment & Plan Assessment & Plan (1) Non-radiographic axial spondyloarthritis: Comment: dx 10/2023 ++ASCA IgG++ASCA IgA (crohn's colitis) Humira 10/2023 Code(s): M45.A0 - Non-radiographic axial spondyloarthritis of unspecified sites in spine Category: Medical Plan: #Non radiographic axial spondyloarthritis Patient is a 29-year-old female with 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 Still with disease activity We will increase Humira 40mg SC every week Plan - Humira 40mg SC every week - Labs today: CBC, CMP, ESR, CRP - RTC 6 months - Labs before visit: CBC, CMP, ESR, CRP (2) Peripheral neuropathy: Code(s): G62.9 - Polyneuropathy, unspecified Category: Medical Qualifiers: Peripheral neuropathy type: polyneuropathy, unspecified Qualified Code(s): G62.9 - Polyneuropathy, unspecified Plan: #Peripheral neuropathy Patient with peripheral neuropathy. Proven on EMG. There is lumbar radiculopathy but there is also sensory motor neuropathy of the lower extremity. We will continue gabapentin and alpha lipoic acid Plan - Gabapentin 1200mg tid - Alpha lipoic acid 600mg daily (3) Encounter for monitoring of adalimumab therapy: Code(s): Z51.81 - Encounter for therapeutic drug level monitoring; Z79.620 - skilled nursing (current) use of immunosuppressive biologic Plan: #Long-term Use of TNF Inhibitors: Jackie Discussed with the patient the benefits and risks of TNF inhibitors for the management of the rheumatic condition Benefits include reduce pain, maintenance of remission and reduction of flares as well as ?progression of the disease Risks include injection sites/infusion reactions, serious infections (such as bacterial infections, opportunistic infections), malignancy, delaminating syndromes, autoimmune phenomena, CHF exacerbations, palmar plantar psoriasis and cytopenias Recommended rotating injection sites, and holding medication during and for up to 1 week after resolution of a febrile illness or open skin wound Plan I spent 30 minutes reviewing the record and labs, taking a history, examining the patient, discussing the treatment plan, ordering diagnostic work up and documenting in the medical record Orders: Orders Complete Blood Count Auto Diff 6 Months Z79.899 - Other managed care provider (current) drug therapy C Reactive Protein 6 Months Z79.899 - Other managed care provider (current) drug therapy Erythrocyte Sedimentation Rate 6 Months Z79.899 - Other assisted (current) drug therapy C Reactive Protein Today Z79.899 - Other managed care provider (current) drug therapy Comprehensive Met. Panel 6 Months Z79.899 - Other managed care provider (current) drug therapy Complete Blood Count Auto Diff Today Z79.899 - Other assisted (current) drug therapy Comprehensive Met. Panel Today Z79.899 - Other managed care provider (current) drug therapy Erythrocyte Sedimentation Rate Today Z79.899 - Other assisted (current) drug therapy Medications: Changed From gabapentin 1,200 mg PO TID M45.A0 - Non-radiographic axial spondyloarthritis of unspecified sites in spine To gabapentin 800 mg PO TID 270 tabs 1RF 90 days M45.A0 - Non-radiographic axial spondyloarthritis of unspecified sites in spine From Humira(CF) Pen (adalimumab) 40 mg (0.4 mL) subcut Q2W 2 ea 5RF NS M45.A0 - Non-radiographic axial spondyloarthritis of unspecified sites in spine To Humira(CF) Pen (adalimumab) 40 mg (0.4 mL) subcut QWEEK 4 ea 5RF NS M45.A0 - Non-radiographic axial spondyloarthritis of unspecified sites in spine Refilled tramadol 50 mg PO BID PRN 60 tabs 5RF pain M70.60 - Trochanteric bursitis, unspecified hip alpha lipoic acid 600 mg PO DAILY 90 caps 1RF G62.9 - Polyneuropathy, unspecified dicyclomine 10 mg PO BID PRN 30 caps 5RF pain R10.9 - Unspecified abdominal pain Humira(CF) Pen (adalimumab) 40 mg (0.4 mL) subcut Q2W 2 ea 5RF NS M45.A0 - Non-radiographic axial spondyloarthritis of unspecified sites in spine Coding Level of Care Code Est Pt Level 4 (23945) Complex EM visit Add On G2211 Diagnoses Non-radiographic axial spondyloarthritis M45.A0 Peripheral polyneuropathy G62.9 Peripheral neuropathy type: polyneuropathy, unspecified Encounter for monitoring of adalimumab therapy Z51.81; Z79.620
[2025-02-10 14:00] VITALS: BP 152/90; PULSE 106; O2SAT 96; BMI 36.6
--- OUTSIDE RECORDS SUMMARY | 2025-02-10 14:54 | XMS_ITS | Encounter Summary ---
Author Organization [facility] Address [address] [place] [address] Phone Care Team Providers Care Director Of Women'S Services Name Role Phone Christiano Park MD Primary Care Provider Encounter Details Date Type Department Care Team (Late st Contact Info) Description 09/12/2010 Conversion Encounter [facility] [address] [place] [address] [place] [address] Social History Tobacco Use Types Packs/Day Years [...] on filedocumented in this encounter Care Teams Director Of Women'S Services Relationship Specialty Start Date End Date Christiano Park MD [address] [place] [address] [place] [address] PCP - General Pediatrics 10/26/20 documented as of this encounter
--- OUTSIDE RECORDS SUMMARY | 2025-02-10 14:54 | XMS_ITS | Encounter Summary ---
Author Organization [facility] Address [address] [place] [address] Phone Care Team Providers Care Electric Motor Controls Assembler Name Role Phone Christiano Park MD Primary Care Provider + [phone] Reason for Visit * Reason Comments Med Refill Encounter Details Date Type Department Care Team ([facility] st Contact Info) Description 06/28/2021 Refill [facility] [address] [place] [address] [place] [address] Christiano Park MD [address] [place] [address] [place] [address] Essential hypertension Social History Tobacco Use Types [...] hypertension documented in this encounter Care Teams Electric Motor Controls Assembler Relationship Specialty Start Date End Date Christiano Park MD [facility] [facility] [place] [address] PCP - General Pediatrics 10/26/20 documented as of this encounter
--- OUTSIDE RECORDS SUMMARY | 2025-02-10 14:54 | XMS_ITS | Clinical Summary ---
Author Organization [facility] Address [address] [place] [address] Phone Care Team Providers Care Cardiology Fellow Name Role Phone Christiano Park MD Primary [...] 9:30 AM EDT): Continue follow up with host and hostess for GI issues. Assessment & Plan (07/10/2020 4:29 PM EST): DOS 06/21/2020 CC Ileitis Assessment: Ileitis, elevated liver function tests, abdominal pain, diarrhea, abdominal CT scan-colon Treatment: Ileitis- budesonide, Pentasa Capsule extended release Continue omeprazole, imodium for diarrhea Assessment & Plan (06/12/2020 4:32 PM EST): 06/07/20 Torres Tomlinson MD CC:?Crohns Disease Patient seen in [facility] ED and referred to GI for abnormal CAT scan of GI tract, abdominal pain and diarrhea and elevated LFT's. Patient was treated with a 1 wk Cipro and Flagyl upon discharge from ED. Recommendations: Colonoscopy, Upper Endoscopy Repeat bloodwork D/c [...] today and set follow up with Dr. Betancourt to review this within the next 4 weeks. Resolved Problems Problem Noted Date Diagnosed Date Resolved Date Postconcussion syndrome 02/04/20110 12/2018 Overview (02/09/2018): Post concussion syndrome (310.2) [...] 119 11/23/2020 4:25 PM EDT Temperature 36.7 C (98 F) 12/14/2020 4:17 PM EDT Respiratory Rate - - Oxygen Saturation - - Inhaled Oxygen Concentration - - Weight 99 kg (218 lb 4.8 oz) 12/14/2020 4:17 PM EDT Height 160 cm (5' 2.99 ) 12/14/2020 4:17 PM EDT Body Mass Index 38.68 12/14/2020 4:17 PM EDT Plan of Treatment Health Maintenance Due Date Last Done Comments Influenza Vaccines (#1) 2024 04/21/2018, 05/21 COVID-19 Vaccine ( season) 2025 10/02/2020, 09/11/2020 DTaP,Tdap,and Td Vaccines (8 - [...] complete this topic Procedures * Due to [facility] [employer] law, this organization might not be sharing sensitive test results. Procedure Name Priority Date/Time Associated Diagnosis Comments CHLAMYDIA GC AMP PROBE Routine 11/23/2020 4:43 PM EDT STD (female) from Last 3 Months or Most Recently Relevant to Health Maintenance Results * Due to [facility] [employer] law, this organization might not be sharing sensitive test results. * CHLAMYDIA GC AMP PROBE (11/23/2020 4:43 PM EDT) Chlamydia Trachomatis, Amplified NEGATIVE (NEG) [facility] Comment: No Chlamydia Trachomatis RNA detected in this patient's sample (REFERENCE RANGE/NORMAL VALUE: NOT DETECTED) Note: This test uses tyre builder- mediated amplification method to detect rRNA from C. Trachomatis N.GONORRHOEAE AMP PROBE NEGATIVE (NEG) [facility] Comment: No Neisseria Gonorrhoeae RNA detected in this patient's sample (REFERENCE RANGE/NORMAL VALUE: NOT DETECTED) NOTE: This test uses tyre builder-mediated amplification method to detect rRNA from N.Gonorrhoeae. [...] without risk of sexual abuse. Consult the [facility] if needed. Contact phone number . Therapeutic failure or success cannot be determined with the Aptima Combo2 assay since nucleic acid may persist following appropriate antimicrobial therapy. The Centers for Disease Control and Prevention (CDC) recommends confirmatory retesting using culture or a different nucleic acid amplification test when positive results occur, if indicated. CHLAM/GC AMP PROBE SPEC TYPE VAGINAL SPECIMEN [facility] Comment: Testing performed or reported by [facility], a Service of [facility], [address] [place] [id number] Tomer Morales MD, Chimney Sweeper Swab (Vagina) 11/23/2020 4:4 3 PM EDT 11/23/2020 11:48 PM EDT Christiano Park MD LAB MICROBIOLOGY - GENERAL O RDERABLES Final Result [facility] from Last 3 Months or Most Recently Relevant to Health Maintenance Insurance [facility] [employer] Care Teams Cardiology Fellow Relationship Specialty Start Date End Date Christiano Park MD [employer] [place] [address] PCP - General Pediatrics 10/26/20
--- OUTSIDE RECORDS SUMMARY | 2025-02-10 14:54 | XMS_ITS | Encounter Summary ---
Author Organization [facility] Address [address] [place] [phone] Phone Care Team Providers Care Show Worker Name Role Phone Christiano Park MD Primary Care Provider + [phone] Reason for Visit * Reason Comments Med Refill Encounter Details Date Type Department Care Team ([facility] st Contact Info) Description 06/30/2021 Refill [facility] [address] [place] [address] [place] [phone] Christiano Park MD [address] [place] [address] [place] [phone] Generalized anxiety disorder Social History Tobacco Use [...] disorder documented in this encounter Care Teams Show Worker Relationship Specialty Start Date End Date Christiano Park MD [facility] [facility] [address] PCP - General Pediatrics 10/26/20 documented as of this encounter
--- OUTSIDE RECORDS SUMMARY | 2025-02-10 14:54 | XMS_ITS | Clinical Summary ---
Author Organization Patient Business Ser [facility] Address [address] [place] [address] Care Team Providers Care Lawn Sprinkler Servicer Name Role Phone Unavailable Primary Care Provider [...] Health Maintenance Due Date Last Done Comments Cervical Cancer Screening: Pap Smear 12/06/2016 Cholesterol Screening (Lipid Panel) 06/12/2023 HIV Screening 06/12/2023 Hepatitis C Screening 06/12/2023 Social Influencers of Health Screening 06/12/2023 Depression Screening 05/18/2024 Hypertension/CHF/CAD Annual BMP Blood Test 09/28/2024 COVID-19 Vaccine ( season) 2025 Influenza Vaccine (#1) 2025 8, 05/21/2009, 05/21/2009 DTaP,Tdap,and Td Vaccines (8 - Td or Tdap) 07/23/2028 07/23/2018, 06/23/2007, 01/17/2000, Additional history exists Hepatitis B Vaccines Completed 07/16/1996, 05/18/1996, 02/16/1996 HIB Vaccines Completed 03/31/1997, 05/1996, 05/18/1996, Additional history exists IPV Vaccines Completed 01/17/2000, 05/1996, 05/18/1996, Additional history exists MMR Vaccines Completed 01/17/2000, 11/15/1996 Varicella Vaccines Completed 06/23/2007, 03/31/1997 HPV Vaccines Completed 05/21/2009, 08/17, 07/03/2008 Meningococcal ACWY Vaccine Completed 10/28/2013, Hepatitis A Vaccines Aged Out No long er eligible based on patient's age to complete this topic Meningococcal B Vaccine Aged Out No l onger eligible based on patient's age to complete this topic Pneumococcal Vaccine: Pediatrics (0 to 5 Years) and At-Risk Patients (6 to 49 Years) Aged Out No longer eligible based on patient's age to complete this topic RSV Immunization Patients Under 20 months Aged Out No longer eligible based on patient's age to complete this topic
--- OUTSIDE RECORDS SUMMARY | 2025-02-10 14:54 | XMS_ITS | Encounter Summary ---
Author Organization [facility] Address [address] [place] [address] Phone Care Team Providers Care Supervisor Fertilizer Processing Name Role Phone Christiano Park MD Primary Care Provider + [phone] Reason for Visit * Reason Onset Date Comments Med Refill Med Refill 03/18/2021 Encounter Details Date Type Department Care Team (Late st Contact Info) Description 03/18/2021 Refill [facility] [address] [place] [address] [place] [phone] Al Eagle MD [address] [place] [address] [place] [phone] Essential hypertension Social History Tobacco Use Types [...] [place] - 03/18/2021 2:01 PM EDT [facility] 12/14/20 documented in this encounter Plan of Treatment Not on file documented as of this encounter Visit Diagnoses Diagnosis Essential hypertension Unspecified essential hypertension documented in this encounter Care Teams Supervisor Fertilizer Processing Relationship Specialty Start Date End Date Christiano Park MD [facility] [place] [phone] PCP - General Pediatrics 10/26/20 documented as of this encounter
--- OUTSIDE RECORDS SUMMARY | 2025-02-10 14:54 | XMS_ITS | Encounter Summary ---
Author Organization [facility] Address [address] [place] [address] Phone Care Team Providers Care Concierge Manager Name Role Phone Christiano Park MD Primary Care Provider [phone] Reason for Visit * Reason Comments Med Refill Encounter Details Date Type Department Care Team (Late st Contact Info) Description 02/09/2018 Refill [facility] [address] [place] [address] [place] [phone] Christiano Park MD [address] [place] [address] [place] [phone] Generalized anxiety disorder Social History Tobacco Use [...] disorder documented in this encounter Care Teams Concierge Manager Relationship Specialty Start Date End Date Christiano Park MD [address] [place] [address] [place] [phone] PCP - General Pediatrics 10/26/20 documented as of this encounter
== END 2025-02-10 14:36 | disposition home or self-care (01) ==
LOC: HO.RHES 13:38
PROVIDERS: PCP Physician Assistant; Visit Provider Student in an Organized Health Care Education/Training Program
DX: M45.A0 Non-radiographic axial spondyloarthritis of unspecified sites in spine (principal); G62.9 Polyneuropathy, unspecified; Z51.81 Encounter for therapeutic drug level monitoring; Z79.620 Long term (current) use of immunosuppressive biologic
CPT/HCPCS: 99214